=== PATIENT | male | born 1970 | race Caucasian/White ===

== ENCOUNTER 2019-01-17 05:52 | Observation (INO) | payer OTHER ==
[~2019-01-17] VITALS: Ht 177.8 cm; Wt 68.1 kg
[~2019-01-17 05:52] MED LIST: AZIT250 PO; BENZ100A PO; Bactrim Ds Tab1 EACH PO; CIPR500 PO; COMPAZINE10 MG PO; DIPH50 PO; FEXO60; FLUD.1; FLUD.1 PO; FLUT.05NI; Fludrocortison0.1 MG PO; GUAI600ER PO; HYDCOR10; HYDCOR10 PO; HYDGUAL120 PO; HYDR1TAB94 PO; LEVAQUIN; LEVFLO500 PO; LIVALO4 MG PO; LOPE2C PO; METO50 PO; METR500 PO; MUPI2TO TOP; Metoprolol Tar100 MG PO; OMEG1CAP30 PO; OMEP10ER PO; OMEP40CA12 PO; ONDA4ODT MM; OXYC5 PO; Omeprazole20 M1 PO; PROM25S PR; Prinivil10 MG PO; ROSU5 PO; RXHYD5325 PO; RXHYDGUAS PO; SUCR1 PO; TESTOSTERONE IM; TESTOSTERONE INJ; TESTTP TOP; Zithromax250 MG PO; Zofran Odt4 MG SL; [UNRECOGNIZED DRUG - OTHER]; [UNRECOGNIZED DRUG - OTHER]
[2019-01-17 06:44] LABS: BASOPHILS ABSOLUTE AUTO 0.03 K/mm3 (0.00-0.23); BASOPHILS PERCENT AUTO 0 % (0-2); EOSINOPHILS ABSOLUTE AUTO 0.14 K/mm3 (0.00-0.68); EOSINOPHILS PERCENT AUTO 2 % (0-6); Hemoglobin 19.3 g/dL (13.5-17.5); IMMATURE GRAN ABSOLUTE AUTO 0.03 K/mm3 (0.00-0.10); IMMATURE GRAN PERCENT AUTO 0 % (0-1); LYMPHOCYTES ABSOLUTE AUTO 0.91 K/mm3 (0.84-5.20); LYMPHOCYTES PERCENT AUTO 10 % (21-46); MONOCYTES ABSOLUTE AUTO 0.29 K/mm3 (0.16-1.47); MONOCYTES PERCENT AUTO 3 % (4-13); Mean Corpuscular HGB 31.1 pg (26.0-34.0); Mean Corpuscular HGB Conc 32.7 g/dL (31.5-36.5); Mean Corpuscular Volume 95 fL (80-100); Mean Platelet Volume 11.5 fL (9.1-12.4); NEUTROPHILS ABSOLUTE AUTO 7.79 K/mm3 (1.96-9.15); NEUTROPHILS PERCENT AUTO 85 % (41-73); Platelet Count 145 K/mm3 (150-400); RDW Coefficient Variation 13.1 % (11.7-14.2); RDW Standard Deviation 45.6 fL (35.1-46.3); Red Blood Cell Count 6.21 M/mm3 (4.30-5.90); White Blood Cell Count 9.19 K/mm3 (4.00-11.30)
[2019-01-17 07:07] LABS: Alanine Aminotransfer (ALT/SGP 158 U/L (12-78); Albumin, Blood 3.8 g/dL (3.4-5.0); Albumin/Globulin Ratio 0.9 (0.8-1.8); Alk Phos 67 U/L (50-136); Anion Gap 9 mmol/L (6-16); Aspartate Aminotrans (AST/SGOT 68 U/L (12-37); Bilirubin, Total 0.6 mg/dL (0.1-1.0); Blood Urea Nitrogen 24 mg/dL (8-24); Bun/Creatinine Ratio 64.5 (12.0-20.0); CO2, Blood 25 mmol/L (21-32); Calcium, Blood 8.7 mg/dL (8.5-10.1); Chloride, Blood 107 mmol/L (98-108); Creatinine, Blood 0.37 mg/dL (0.60-1.20); Globulin, Blood 4.4 g/dL (2.2-4.0); Glomerular Filtration Rate >60 (60-); Glucose, Blood 90 mg/dL (70-99); Potassium, Blood 4.1 mmol/L (3.5-5.5); Sodium, Blood 141 mmol/L (136-145); Total Protein, Blood 8.2 g/dL (6.4-8.2)
[2019-01-17 08:10] LABS: Source, Urine Voided
[2019-01-17 08:18] LABS: Bilirubin, Urine Neg (Neg); Blood, Urine 3+ (Neg); Glucose Qualitative, Urine Neg (Neg); Ketones, Urine Neg (Neg); Leukocyte Esterase, Urine Neg (Neg); Nitrite, Urine Neg (Neg); Protein, Urine 1+ (Neg); Urobilinogen, Urine NORM (Normal)
[2019-01-17 08:23] LABS: Color, Urine Yellow (P-Yellow)
[2019-01-17 08:24] LABS: Appearance, Urine Clear (Clear)
[2019-01-17 08:28] LABS: Bacteria Not Seen /hpf; Squamous Epithelial Cells Rare /hpf (Few); White Blood Cells, Urine 0-2 /hpf (0-5)
[2019-01-17] MEDS ORDERED: HYDR1TAB94 PO (15:39)
[2019-01-17 19:17] LABS: Influenza A Negative (NEGATIVE); Influenza B Negative (NEGATIVE)
--- NOTE | 2019-01-17 20:01 | NUR ---
SHIFT SUMMARY REYNA ARRIVED FROM ED AROUND 330 IN THE AFTERNOON. SOME NAUSEA, BUT NO VOMITTING. GOT TYLENOL FOR ABDOMINAL DISCOMFORT AND PT SLEPT WELL AFTER THIS. MIVF RUNNING, DAD AT BS. BED ALARM ON, PT INSTRUCTED TO CALL BEFORE GETTING OOB. JAMI
--- NOTE | 2019-01-18 01:20 | NUR ---
0120 PT APPEARS TO BE SLEEPING BREATHS EVEN NON LABORED
[2019-01-18 05:13] LABS: BASOPHILS ABSOLUTE AUTO 0.02 K/mm3 (0.00-0.23); BASOPHILS PERCENT AUTO 0 % (0-2); EOSINOPHILS ABSOLUTE AUTO 0.13 K/mm3 (0.00-0.68); EOSINOPHILS PERCENT AUTO 2 % (0-6); Hematocrit 48.7 % (37.0-53.0); Hemoglobin 15.7 g/dL (13.5-17.5); IMMATURE GRAN ABSOLUTE AUTO 0.03 K/mm3 (0.00-0.10); IMMATURE GRAN PERCENT AUTO 1 % (0-1); LYMPHOCYTES PERCENT AUTO 20 % (21-46); MONOCYTES ABSOLUTE AUTO 0.54 K/mm3 (0.16-1.47); MONOCYTES PERCENT AUTO 8 % (4-13); Mean Corpuscular HGB 30.8 pg (26.0-34.0); Mean Corpuscular HGB Conc 32.2 g/dL (31.5-36.5); Mean Corpuscular Volume 96 fL (80-100); Mean Platelet Volume 11.8 fL (9.1-12.4); NEUTROPHILS ABSOLUTE AUTO 4.48 K/mm3 (1.96-9.15); NEUTROPHILS PERCENT AUTO 69 % (41-73); Platelet Count 126 K/mm3 (150-400); RDW Coefficient Variation 13.2 % (11.7-14.2); RDW Standard Deviation 47.1 fL (35.1-46.3); Red Blood Cell Count 5.09 M/mm3 (4.30-5.90)
[2019-01-18 05:28] LABS: Anion Gap 5 mmol/L (6-16); Blood Urea Nitrogen 18 mg/dL (8-24); Bun/Creatinine Ratio 51.3 (12.0-20.0); CO2, Blood 26 mmol/L (21-32); Calcium, Blood 7.3 mg/dL (8.5-10.1); Chloride, Blood 109 mmol/L (98-108); Creatinine, Blood 0.35 mg/dL (0.60-1.20); Glomerular Filtration Rate >60 (60-); Glucose, Blood 59 mg/dL (70-99); Magnesium, Blood 1.8 mg/dL (1.6-2.4); Potassium, Blood 4.2 mmol/L (3.5-5.5); Sodium, Blood 140 mmol/L (136-145)
[2019-01-18] MEDS ORDERED: OMEPRAZOLE MAGN20 MG PO (18:08)
--- NOTE | 2019-01-18 19:48 | NUR ---
SHIFT SUMMARY- PT ON FULL LIQUID DIET. PT TOLERATED LUNCH WELL. PT WAS TO D/C THIS PM. NOTIFIED DR. PACK PT C/O STOMACH PAIN AND DIARRHEA THIS PM. NOTIFIED DR. PACK PT'S MOTHER CONCERNED ABOUT ENDING UP COMING BACK TO THE ED IF THEY D/C TONIGHT. DR. PACK SAID TO KEEP PT OVERNIGHT FOR OBSERVATION. PT DENIES N/V. TURNS Q2H. NO OTHER SIGNIFICANT CHANGES THIS SHIFT.
--- NOTE | 2019-01-19 05:06 | NUR ---
Shift summary. Pt given fentanyl for abdominal pain at hs with good relief. Pt states he has no abdominal pain this am. Pt incontinent of urine this am and changed out. Md called for the one time dose of fentanyl last pm because oral meds were not effective. Father also concernd about rapid decrease in cortef. The issue was addressed with md and WAs told that he would take care of it it am.
--- NOTE | 2019-01-19 10:17 | NUR ---
DISCHARGE PT STATE NO NAUSEA OR ABD PAIN THIS AM. ATE BF, TOLERATE WELL. DR PACK IN TO SEE HIM, STATE OK FOR D/C HOME TODAY, PLACE ORDER. PT MOTHER IN FOR TRANSPORTATION HOME, D/C INSTRUCT PROVIDED. NO NEW SCRIPTS. AUTOMOTIVE SERVICE MANAGER PROVIDE SHOWER. IV D/C INTACT. THEY STATE READY FOR D/C HOME, PLEASANT & APPRECIATIVE. AUTOMOTIVE SERVICE MANAGER PROVIDE W/C ESCORT FROM HOSP.
--- NOTE | 2019-01-19 11:50 | NUR ---
Pt is in bed resting and doing well , pt. may go home today encouraged pt. and prayed for him.
== END 2019-01-19 10:22 | disposition home or self-care (01) ==
LOC: ER 05:52 → ERHOLD 05:53 → MEDS 05:53 → ER 12:15 → MEDS 12:15 → ERHOLD 12:15 → MEDS 12:15 → ERHOLD 14:29 → MEDS 01-19 10:22
PROVIDERS: Emergency Medicine; ADMIT Family Medicine
DX: K52.9 Noninfective gastroenteritis and colitis, unspecified (principal); E87.0 Hyperosmolality and hypernatremia; E86.0 Dehydration; E27.1 Primary adrenocortical insufficiency; D75.1 Secondary polycythemia; I10 Essential (primary) hypertension; I48.0 Paroxysmal atrial fibrillation; E78.5 Hyperlipidemia, unspecified; K21.9 Gastro-esophageal reflux disease without esophagitis; Z88.0 Allergy status to penicillin; Z88.8 Allergy status to other drugs, medicaments and biological substances; Z79.899 Other long term (current) drug therapy; Z79.52 Long term (current) use of systemic steroids
CPT/HCPCS: 36415; 51701; 74177; 80048; 80053; 81001; 83690; 83735; 85025; 87804; 96361; 96361-59; 96374-59; 96375; 96375-59; 99285-25; A9270-GY; C9113; G0378; J1650; J1720; J2405; J3010; J3480; J7120; Q9967

== ENCOUNTER 2020-01-02 23:03 | Observation (INO) | payer OTHER ==
[~2020-01-02] VITALS: Ht 177.8 cm; Wt 63.5 kg
[~2020-01-02 23:03] MED LIST changes: -OMEG1CAP30 PO; +OMEPRAZOLE MAGN20 MG PO; +Omega-31000 MG PO
[2020-01-02 23:49] LABS: BASOPHILS ABSOLUTE AUTO 0.05 K/mm3 (0.00-0.23); BASOPHILS PERCENT AUTO 1 % (0-2); EOSINOPHILS ABSOLUTE AUTO 0.22 K/mm3 (0.00-0.68); EOSINOPHILS PERCENT AUTO 3 % (0-6); Hematocrit 54.1 % (37.0-53.0); Hemoglobin 18.3 g/dL (13.5-17.5); IMMATURE GRAN ABSOLUTE AUTO 0.03 K/mm3 (0.00-0.10); IMMATURE GRAN PERCENT AUTO 0 % (0-1); LYMPHOCYTES ABSOLUTE AUTO 2.27 K/mm3 (0.84-5.20); LYMPHOCYTES PERCENT AUTO 31 % (21-46); MONOCYTES ABSOLUTE AUTO 0.78 K/mm3 (0.16-1.47); MONOCYTES PERCENT AUTO 11 % (4-13); Mean Corpuscular HGB 31.3 pg (26.0-34.0); Mean Corpuscular HGB Conc 33.8 g/dL (31.5-36.5); Mean Corpuscular Volume 93 fL (80-100); Mean Platelet Volume 11.2 fL (9.1-12.4); NEUTROPHILS ABSOLUTE AUTO 4.06 K/mm3 (1.96-9.15); NEUTROPHILS PERCENT AUTO 55 % (41-73); Platelet Count 179 K/mm3 (150-400); RDW Coefficient Variation 12.6 % (11.7-14.2); RDW Standard Deviation 43.1 fL (35.1-46.3); Red Blood Cell Count 5.85 M/mm3 (4.30-5.90); White Blood Cell Count 7.41 K/mm3 (4.00-11.30)
[2020-01-03 00:10] LABS: Alanine Aminotransfer (ALT/SGP 157 U/L (12-78); Alk Phos 66 U/L (50-136); Anion Gap 5 mmol/L (6-16); Aspartate Aminotrans (AST/SGOT 56 U/L (12-37); Bilirubin, Total 0.3 mg/dL (0.1-1.0); Blood Urea Nitrogen 17 mg/dL (8-24); CO2, Blood 29 mmol/L (21-32); Chloride, Blood 104 mmol/L (98-108); Creatinine, Blood 0.66 mg/dL (0.60-1.20); Globulin, Blood 4.2 g/dL (2.2-4.0); Glomerular Filtration Rate >60 (60-); Glucose, Blood 149 mg/dL (70-99); Potassium, Blood 3.7 mmol/L (3.5-5.5); Sodium, Blood 138 mmol/L (136-145); Total Protein, Blood 8.2 g/dL (6.4-8.2); Troponin I 0.145 ng/mL (0.000-0.040)
[2020-01-03 00:37] LABS: Influenza A Negative (NEGATIVE); Influenza B Negative (NEGATIVE)
[2020-01-03 03:38] LABS: Adenovirus Not Detected (NOT DETECT); Bordetella pertussis Not Detected (NOT DETECT); Chlamydophila pneumoniae Not Detected (NOT DETECT); Coronavirus 229E Not Detected (NOT DETECT); Coronavirus HKU1 Not Detected (NOT DETECT); Coronavirus NL63 Not Detected (NOT DETECT); Coronavirus OC43 Not Detected (NOT DETECT); Human Metapneumovirus Detected (NOT DETECT); Human Rhinovirus/Enterovirus Not Detected (NOT DETECT); Influenza A Not Detected (NOT DETECT); Influenza A/2009-H1 Not Detected (NOT DETECT); Influenza A/H1 Not Detected (NOT DETECT); Influenza A/H3 Not Detected (NOT DETECT); Influenza B Not Detected (NOT DETECT); Mycoplasma pneumoniae Not Detected (NOT DETECT); Parainfluenza Virus 1 Not Detected (NOT DETECT); Parainfluenza Virus 2 Not Detected (NOT DETECT); Parainfluenza Virus 3 Not Detected (NOT DETECT); Parainfluenza Virus 4 Not Detected (NOT DETECT); Respiratory Syncytial Virus Not Detected (NOT DETECT)
[2020-01-03 04:07] LABS: International Normalized Ratio 0.97; Prothrombin Time Results 10.4 Sec (9.7-11.5)
[2020-01-03 06:40] LABS: Alanine Aminotransfer (ALT/SGP 133 U/L (12-78); Albumin, Blood 3.3 g/dL (3.4-5.0); Alk Phos 51 U/L (50-136); Anion Gap 7 mmol/L (6-16); Aspartate Aminotrans (AST/SGOT 73 U/L (12-37); Bilirubin, Total 0.3 mg/dL (0.1-1.0); Blood Urea Nitrogen 16 mg/dL (8-24); Bun/Creatinine Ratio 37.2 (12.0-20.0); CO2, Blood 25 mmol/L (21-32); Calcium, Blood 8.3 mg/dL (8.5-10.1); Chloride, Blood 108 mmol/L (98-108); Creatinine, Blood 0.43 mg/dL (0.60-1.20); Globulin, Blood 3.4 g/dL (2.2-4.0); Glomerular Filtration Rate >60 (60-); Glucose, Blood 98 mg/dL (70-99); Potassium, Blood 3.4 mmol/L (3.5-5.5); Sodium, Blood 140 mmol/L (136-145); Total Protein, Blood 6.7 g/dL (6.4-8.2)
[2020-01-03 07:13] LABS: BASOPHILS ABSOLUTE AUTO 0.04 K/mm3 (0.00-0.23); BASOPHILS PERCENT AUTO 0 % (0-2); EOSINOPHILS ABSOLUTE AUTO 0.14 K/mm3 (0.00-0.68); EOSINOPHILS PERCENT AUTO 1 % (0-6); Hematocrit 51.9 % (37.0-53.0); Hemoglobin 17.6 g/dL (13.5-17.5); IMMATURE GRAN ABSOLUTE AUTO 0.04 K/mm3 (0.00-0.10); IMMATURE GRAN PERCENT AUTO 0 % (0-1); LYMPHOCYTES ABSOLUTE AUTO 2.13 K/mm3 (0.84-5.20); LYMPHOCYTES PERCENT AUTO 20 % (21-46); MONOCYTES PERCENT AUTO 9 % (4-13); Mean Corpuscular HGB Conc 33.9 g/dL (31.5-36.5); Mean Corpuscular Volume 92 fL (80-100); Mean Platelet Volume 11.2 fL (9.1-12.4); NEUTROPHILS ABSOLUTE AUTO 7.48 K/mm3 (1.96-9.15); NEUTROPHILS PERCENT AUTO 69 % (41-73); Platelet Count 179 K/mm3 (150-400); RDW Coefficient Variation 12.6 % (11.7-14.2); RDW Standard Deviation 42.5 fL (35.1-46.3); Red Blood Cell Count 5.67 M/mm3 (4.30-5.90); White Blood Cell Count 10.83 K/mm3 (4.00-11.30)
--- NOTE | 2020-01-03 14:32 | NUR ---
PT ADMITTED PT ADMITTED. CRITICAL TROP CALLED TO DR. PACK ON ADMIT. NO ORDERS. CARDIAC CONSULT CALLED. PT ORIENTED TO ROOM. CALL LIGHT IN REACH.
--- NOTE | 2020-01-03 15:00 | NUR ---
Echocardiogram completed.
--- NOTE | 2020-01-03 15:38 | NUR ---
CODE STATUS PT PARENTS REQUESTED THAT PT BE A DNR. DR. PACK NOTIFIED. NEW ORDER PLACED.
--- NOTE | 2020-01-03 17:11 | NUR ---
SHIFT SUMMARY PT SLEEPING CURRENTLY IN BED. CALL LIGHT IN REACH. NO CHANGES IN ASSESSMENT SINCE ADMISSION. DR. PACK AWARE OF TROPONINS. LOCKSTITCH FRONT MAKER IN TO SEE PT THIS SHIFT. VSS. WILL CONTINUE TO MONITOR UNTIL TURNOVER IS COMPLETE.
--- NOTE | 2020-01-04 03:31 | NUR ---
SHIFT SUMMARY ASSUMED CARE OF PT AT 1900. PT WAS SLEEPING DURING SHIFT CHANGE. PT IS ALERT AND OIENTED TO SELF AND FAMILY, PT CAN ONLY ANSWER YES AND NO QUESTIONS. LUNG SOUINDS CLEAR, HEART SOUNDSREGULAR, TELE SHOWS SINUS AT 95. PT BP MEDICATION HELP DUE TO LOW BP, TROPONINS CAME BACK AND SHOWED A DECREASE, CHARGE NURSE NOTIFIED, CHARGE NURSE STATED NOT TO CALL DOCTOR DUE TO DECREASING LEVELS. PT HAS SLEPT MOST OF THE NIGHT EXCEPT TO RECEIVE A SNACK. CALL LIGHT IN REACH, BED IN LOWEST POSTION, WILL CONTINUE TO MONITOR UNTIL DAYSHIFT NURSE ARRIVES.
[2020-01-04 05:20] LABS: Alanine Aminotransfer (ALT/SGP 124 U/L (12-78); Albumin, Blood 2.9 g/dL (3.4-5.0); Albumin/Globulin Ratio 0.9 (0.8-1.8); Alk Phos 46 U/L (50-136); Anion Gap 9 mmol/L (6-16); Aspartate Aminotrans (AST/SGOT 71 U/L (12-37); Bilirubin, Total 0.6 mg/dL (0.1-1.0); Blood Urea Nitrogen 15 mg/dL (8-24); Bun/Creatinine Ratio 37.6 (12.0-20.0); CO2, Blood 20 mmol/L (21-32); Calcium, Blood 7.8 mg/dL (8.5-10.1); Chloride, Blood 109 mmol/L (98-108); Globulin, Blood 3.3 g/dL (2.2-4.0); Glomerular Filtration Rate >60 (60-); Glucose, Blood 58 mg/dL (70-99); Sodium, Blood 138 mmol/L (136-145); Total Protein, Blood 6.2 g/dL (6.4-8.2); Troponin I 0.261 ng/mL (0.000-0.040)
[2020-01-04 05:33] LABS: BASOPHILS ABSOLUTE AUTO 0.04 K/mm3 (0.00-0.23); BASOPHILS PERCENT AUTO 1 % (0-2); EOSINOPHILS ABSOLUTE AUTO 0.05 K/mm3 (0.00-0.68); EOSINOPHILS PERCENT AUTO 1 % (0-6); Hematocrit 46.6 % (37.0-53.0); Hemoglobin 15.7 g/dL (13.5-17.5); IMMATURE GRAN ABSOLUTE AUTO 0.05 K/mm3 (0.00-0.10); IMMATURE GRAN PERCENT AUTO 1 % (0-1); LYMPHOCYTES ABSOLUTE AUTO 2.15 K/mm3 (0.84-5.20); LYMPHOCYTES PERCENT AUTO 29 % (21-46); MONOCYTES ABSOLUTE AUTO 0.57 K/mm3 (0.16-1.47); MONOCYTES PERCENT AUTO 8 % (4-13); Mean Corpuscular HGB 31.2 pg (26.0-34.0); Mean Corpuscular HGB Conc 33.7 g/dL (31.5-36.5); Mean Corpuscular Volume 93 fL (80-100); NEUTROPHILS ABSOLUTE AUTO 4.54 K/mm3 (1.96-9.15); NEUTROPHILS PERCENT AUTO 61 % (41-73); RDW Coefficient Variation 12.8 % (11.7-14.2); RDW Standard Deviation 43.6 fL (35.1-46.3); Red Blood Cell Count 5.03 M/mm3 (4.30-5.90)
[2020-01-04 05:36] LABS: Mean Platelet Volume 11.8 fL (9.1-12.4); Platelet Count 171 K/mm3 (150-400)
[2020-01-04] MEDS ORDERED: ASPIR 8181 M1 PO (11:20)
[2020-01-04] MEDS ORDERED: ATOR20 PO (11:21)
[2020-01-04] MEDS ORDERED: DOCU100 PO (11:21)
[2020-01-04] MEDS ORDERED: GUAI600T33 PO (11:22)
[2020-01-04] MEDS ORDERED: ALBU90OI INH (11:23)
[2020-01-04] MEDS ORDERED: Acetaminophen650 M1 PO (11:23)
[2020-01-04] MEDS ORDERED: OMEP20ER PO (11:23)
--- NOTE | 2020-01-04 11:29 | NUR ---
VTACH BEATS PT HAS 6 BEATS OF V-TACH PER JAVA CORE DEVELOPER. PT NOW RUNNING SINUS TACH AT 112. DR. PACK NOTIFIED. STATES THIS IS DUE TO HIS CARDIOMYOPATHY. NO NEW ORDERS. WILL CONTINUE WITH DC SINCE PT IS NOT SUSTAINING ANY RATE ABOVE 150. WILL CONTINUE TO MONITOR UNTIL PT IS DC'ED.
--- NOTE | 2020-01-04 12:24 | NUR ---
PT DISCHARGED. PT DISCHARGED AT 1205. DC INSTRUCTIONS GIVEN TO PT FATHER. NO FURTHER QUESTIONS AT THIS TIME. PT WHEELED OUT BY ESCORT AND DRIVEN HOME BY FATHER.
== END 2020-01-04 12:10 | disposition home or self-care (01) ==
LOC: ER 23:03 → ERHOLD 23:04 → MEDS 23:04 → ENPENDDIS 01-04 11:00 → MEDS 01-04 12:10
PROVIDERS: Emergency Medicine; Family Medicine; Physician Assistant; ADMIT Internal Medicine
DX: I21.4 Non-ST elevation (NSTEMI) myocardial infarction (principal); J20.8 Acute bronchitis due to other specified organisms; G71.01 Duchenne or Becker muscular dystrophy; I42.9 Cardiomyopathy, unspecified; E27.40 Unspecified adrenocortical insufficiency; I48.0 Paroxysmal atrial fibrillation; I10 Essential (primary) hypertension; E78.5 Hyperlipidemia, unspecified; K21.9 Gastro-esophageal reflux disease without esophagitis
CPT/HCPCS: 0099U; 36415; 71046; 71250; 80053; 82947; 83605; 84484; 85025; 85610; 85730; 87804; 93005; 93010; 93306; 96361; 96365; 96367; 96375; 99285-25; A9270; A9270-GY; J0696; J1644; J1650; J1720; J3480; J7030

== ENCOUNTER 2022-05-18 | Emergency (ER) | payer OTHER ==
[~2022-05-18] VITALS: Ht 180.3 cm; Wt 70.3 kg
[~2022-05-18] MED LIST changes: +ALBU90OI INH; +ASPIR 8181 M1 PO; +ATOR20 PO; +Acetaminophen650 M1 PO; +DOCU100 PO; +GUAI600T33 PO; +OMEP20ER PO
[2022-05-18 00:50] LABS: BASOPHILS ABSOLUTE AUTO 0.04 K/mm3 (0.00-0.23); BASOPHILS PERCENT AUTO 1 % (0-2); EOSINOPHILS ABSOLUTE AUTO 0.23 K/mm3 (0.00-0.68); EOSINOPHILS PERCENT AUTO 3 % (0-6); Hematocrit 54.6 % (37.0-53.0); Hemoglobin 18.8 g/dL (13.5-17.5); IMMATURE GRAN ABSOLUTE AUTO 0.03 K/mm3 (0.00-0.10); IMMATURE GRAN PERCENT AUTO 0 % (0-1); LYMPHOCYTES ABSOLUTE AUTO 2.01 K/mm3 (0.84-5.20); LYMPHOCYTES PERCENT AUTO 24 % (21-46); MONOCYTES ABSOLUTE AUTO 0.66 K/mm3 (0.16-1.47); MONOCYTES PERCENT AUTO 8 % (4-13); Mean Corpuscular HGB 30.8 pg (26.0-34.0); Mean Corpuscular HGB Conc 34.4 g/dL (31.5-36.5); Mean Corpuscular Volume 90 fL (80-100); Mean Platelet Volume 10.8 fL (9.1-12.4); NEUTROPHILS ABSOLUTE AUTO 5.59 K/mm3 (1.96-9.15); NEUTROPHILS PERCENT AUTO 65 % (41-73); Platelet Count 171 K/mm3 (150-400); RDW Coefficient Variation 12.6 % (11.7-14.2); RDW Standard Deviation 41.6 fL (35.1-46.3); White Blood Cell Count 8.56 K/mm3 (4.00-11.30)
[2022-05-18 01:08] LABS: Albumin, Blood 3.7 g/dL (3.4-5.0); Albumin/Globulin Ratio 0.9 (0.8-1.8); Bilirubin, Total 0.8 mg/dL (0.1-1.0); Bun/Creatinine Ratio 45.7 (12.0-20.0); Creatinine, Blood 0.37 mg/dL (0.60-1.20); Globulin, Blood 4.1 g/dL (2.2-4.0); Potassium, Blood 3.9 mmol/L (3.5-5.5); Total Protein, Blood 7.8 g/dL (6.4-8.2)
== END 2022-05-18 02:25 | disposition home or self-care (01) ==
LOC: ER
PROVIDERS: Emergency Medicine
DX: R11.2 Nausea with vomiting, unspecified (principal); R10.9 Unspecified abdominal pain; E27.1 Primary adrenocortical insufficiency; G71.01 Duchenne or Becker muscular dystrophy; E78.5 Hyperlipidemia, unspecified; K21.9 Gastro-esophageal reflux disease without esophagitis; Z88.0 Allergy status to penicillin; Z88.1 Allergy status to other antibiotic agents
CPT/HCPCS: 36415; 80053; 85025; A9270; J2405; J2930; J7030

== ENCOUNTER 2023-01-16 00:37 | Inpatient (IN) | payer OTHER ==
[~2023-01-16] VITALS: Ht 180.3 cm; Wt 72.5 kg
[2023-01-16 01:19] LABS: BASOPHILS ABSOLUTE AUTO 0.09 K/mm3 (0.00-0.23); BASOPHILS PERCENT AUTO 1 % (0-2); EOSINOPHILS ABSOLUTE AUTO 0.38 K/mm3 (0.00-0.68); EOSINOPHILS PERCENT AUTO 4 % (0-6); Hematocrit 52.7 % (37.0-53.0); IMMATURE GRAN ABSOLUTE AUTO 0.05 K/mm3 (0.00-0.10); IMMATURE GRAN PERCENT AUTO 1 % (0-1); LYMPHOCYTES ABSOLUTE AUTO 1.66 K/mm3 (0.84-5.20); LYMPHOCYTES PERCENT AUTO 15 % (21-46); MONOCYTES ABSOLUTE AUTO 1.06 K/mm3 (0.16-1.47); MONOCYTES PERCENT AUTO 10 % (4-13); Mean Corpuscular HGB 30.9 pg (26.0-34.0); Mean Corpuscular HGB Conc 34.2 g/dL (31.5-36.5); Mean Corpuscular Volume 91 fL (80-100); NEUTROPHILS ABSOLUTE AUTO 7.52 K/mm3 (1.96-9.15); NEUTROPHILS PERCENT AUTO 70 % (41-73); Platelet Count 177 K/mm3 (150-400); RDW Coefficient Variation 13.6 % (11.7-14.2); RDW Standard Deviation 44.5 fL (35.1-46.3); Red Blood Cell Count 5.82 M/mm3 (4.30-5.90); White Blood Cell Count 10.76 K/mm3 (4.00-11.30)
[2023-01-16 01:36] LABS: Albumin, Blood 3.4 g/dL (3.4-5.0); Albumin/Globulin Ratio 0.8 (0.8-1.8); Bilirubin, Total 0.3 mg/dL (0.1-1.0); Bun/Creatinine Ratio 55.4 (12.0-20.0); Calcium, Blood 8.4 mg/dL (8.5-10.1); Creatinine, Blood 0.29 mg/dL (0.60-1.20); Globulin, Blood 4.3 g/dL (2.2-4.0); Potassium, Blood 3.6 mmol/L (3.5-5.5); Total Protein, Blood 7.7 g/dL (6.4-8.2)
[2023-01-16 02:06] LABS: Influenza A, PCR NEGATIVE (NEGATIVE); Influenza B, PCR NEGATIVE (NEGATIVE); Resp Syncytial Virus, PCR NEGATIVE (NEGATIVE); SARS-Cov-2 (COVID-19) PCR, MMC NEGATIVE (NEGATIVE)
[2023-01-16 02:18] LABS: Source, Urine Voided
[2023-01-16 02:21] LABS: Bilirubin, Urine Neg (Neg); Blood, Urine 5+ (Neg); Glucose Qualitative, Urine 3+ (Neg); Ketones, Urine Neg (Neg); Leukocyte Esterase, Urine Neg (Neg); Nitrite, Urine Neg (Neg); Protein, Urine 3+ (Neg); Urobilinogen, Urine NORM (Normal)
[2023-01-16 02:27] LABS: Appearance, Urine Clear (Clear); Color, Urine Yellow (P-Yellow)
[2023-01-16 02:30] LABS: Bacteria Not Seen /hpf; Mucus Light (0-Heavy); Squamous Epithelial Cells Not Seen /hpf (Few); White Blood Cells, Urine 0-2 /hpf (0-5)
--- NOTE | 2023-01-16 04:30 | NUR ---
ASSESSMENT: PT VERY PLEASANT AND COOP WITH CARE. DENIES ANY PAIN. HX OBTAINED FROM DAD; SANCHEZ. LS DIMINISHED T/O WITH BIOX 95% ON RA. HEART SOUNDS REGULAR WITH MONITOR SHOWING HR 87. SKIN PINK, WARM AND DRY WITH PPP BILAT. 20G IV LAC WITH NS RUNNING AT TKO. ABD R/S WITH BT X 4. VOIDS PER URINAL WITH ASSISTANCE
[2023-01-16 04:47] LABS: BASOPHILS ABSOLUTE AUTO 0.04 K/mm3 (0.00-0.23); BASOPHILS PERCENT AUTO 0 % (0-2); EOSINOPHILS ABSOLUTE AUTO 0.12 K/mm3 (0.00-0.68); EOSINOPHILS PERCENT AUTO 1 % (0-6); Hemoglobin 18.6 g/dL (13.5-17.5); IMMATURE GRAN ABSOLUTE AUTO 0.08 K/mm3 (0.00-0.10); IMMATURE GRAN PERCENT AUTO 1 % (0-1); LYMPHOCYTES ABSOLUTE AUTO 1.19 K/mm3 (0.84-5.20); LYMPHOCYTES PERCENT AUTO 13 % (21-46); MONOCYTES ABSOLUTE AUTO 0.35 K/mm3 (0.16-1.47); MONOCYTES PERCENT AUTO 4 % (4-13); Mean Corpuscular HGB 30.3 pg (26.0-34.0); Mean Corpuscular HGB Conc 33.7 g/dL (31.5-36.5); Mean Corpuscular Volume 90 fL (80-100); Mean Platelet Volume 11.1 fL (9.1-12.4); NEUTROPHILS ABSOLUTE AUTO 7.64 K/mm3 (1.96-9.15); NEUTROPHILS PERCENT AUTO 81 % (41-73); Platelet Count 179 K/mm3 (150-400); RDW Coefficient Variation 13.4 % (11.7-14.2); RDW Standard Deviation 44.1 fL (35.1-46.3); Red Blood Cell Count 6.13 M/mm3 (4.30-5.90); White Blood Cell Count 9.42 K/mm3 (4.00-11.30)
[2023-01-16 05:04] LABS: Bun/Creatinine Ratio 38.3 (12.0-20.0); Calcium, Blood 8.2 mg/dL (8.5-10.1); Creatinine, Blood 0.37 mg/dL (0.60-1.20); Potassium, Blood 3.9 mmol/L (3.5-5.5)
[2023-01-16 05:07] LABS: Hematocrit 55.2 % (37.0-53.0)
--- NOTE | 2023-01-16 08:28 | NUR ---
ASSUMED CARE REPORT FROM TIKI BALBUENA AT 0700. PT RESTING IN BED. ALERT. ORIENTED TO SELF AND PLACE. ANSWERS QUESTIONS c YES/NO/ONE WORD ANSWERS. ABLE TO MAKE NEEDS KNOWN. LUNGS DIM THROUGHOUT. NO COUGH NOTED, RA, O2 SATS >94%. ASSISTED c MEALS AND PO INTAKE. PIV X 1. WILL CONTINUE TO MONITOR.
--- NOTE | 2023-01-16 10:56 | NUR ---
"Spiritual Care | Nurse Referral Pt. is awake in bed and is very pleasant. As noted in other notes, Pt. responds in one word sentences and displays evidence of limited mentation. Pt. does not verbalize any concerns. Identify subjects of interest, and Pt. responds with a joyous expression. Pt. verbalized gratitude for the spiritual care visit."
--- NOTE | 2023-01-16 17:20 | NUR ---
SHIFT SUMMARY NO ACUTE CHANGES THIS SHIFT. PT REMAINS ON RA, O2 SATS >94%. LUNGS DIM. NO COUGH NOTED. VSS. NEURO UNCHANGED. SPEAKS IN ONE-TWO WORD RESPONSES. DENIES NEEDS. ABLE TO MAKE NEEDS KNOWN. POOR APPETITE FOR LUNCH, RESTARTED PRILOSEC p C/O EPIGASTRIC PAIN. DISCUSSED STEROID ORDER c LEXI PER FATHER, INCREASED DOSE TO 20 MG TID. WILL CONTINUE TO MONITOR UNTIL REPORT TO ONCOMING NURSE.
--- NOTE | 2023-01-16 19:00 | NUR ---
ASSUMED CARE OF PT AT 1900 PT RESTING IN BED WITH NO COMPLAINTS AT THIS TIME. A/O AT BASLINE ACCORDING TO FAMILY. BASELINE LOW MENTAL CAPACITY. PT WAS ABLE TO ANSWER YES AND NO QUESTIONS. ABLE TO MAKE NEEDS KNOWN. DOES NOT USE CALL LIGHT. NORMAL ROUNDING NEEDED FOR PT NEEDS. VITALS WNL. SPO2 >93% ON RA. BED IN LOW POSITION, CALL LIGHT WITHIN REACH. PT IS WITHIN THIS RN SIGHT. SEE FULL ASSESSMENT FOR FURHTER INFORMATION.
[2023-01-17 03:40] LABS: BASOPHILS ABSOLUTE AUTO 0.08 K/mm3 (0.00-0.23); BASOPHILS PERCENT AUTO 1 % (0-2); EOSINOPHILS ABSOLUTE AUTO 0.17 K/mm3 (0.00-0.68); EOSINOPHILS PERCENT AUTO 2 % (0-6); Hematocrit 50.6 % (37.0-53.0); Hemoglobin 17.1 g/dL (13.5-17.5); IMMATURE GRAN ABSOLUTE AUTO 0.06 K/mm3 (0.00-0.10); IMMATURE GRAN PERCENT AUTO 1 % (0-1); LYMPHOCYTES ABSOLUTE AUTO 1.74 K/mm3 (0.84-5.20); LYMPHOCYTES PERCENT AUTO 15 % (21-46); MONOCYTES ABSOLUTE AUTO 1.24 K/mm3 (0.16-1.47); MONOCYTES PERCENT AUTO 11 % (4-13); Mean Corpuscular HGB 30.3 pg (26.0-34.0); Mean Corpuscular HGB Conc 33.8 g/dL (31.5-36.5); Mean Corpuscular Volume 90 fL (80-100); Mean Platelet Volume 11.2 fL (9.1-12.4); NEUTROPHILS ABSOLUTE AUTO 8.16 K/mm3 (1.96-9.15); NEUTROPHILS PERCENT AUTO 71 % (41-73); Platelet Count 174 K/mm3 (150-400); RDW Coefficient Variation 13.5 % (11.7-14.2); RDW Standard Deviation 44.1 fL (35.1-46.3); Red Blood Cell Count 5.65 M/mm3 (4.30-5.90); White Blood Cell Count 11.45 K/mm3 (4.00-11.30)
[2023-01-17 04:02] LABS: Albumin, Blood 3.2 g/dL (3.4-5.0); Albumin/Globulin Ratio 0.8 (0.8-1.8); Bilirubin, Total 0.9 mg/dL (0.1-1.0); Bun/Creatinine Ratio 36.9 (12.0-20.0); Calcium, Blood 8.6 mg/dL (8.5-10.1); Creatinine, Blood 0.35 mg/dL (0.60-1.20); Globulin, Blood 3.8 g/dL (2.2-4.0)
--- NOTE | 2023-01-17 05:17 | NUR ---
END OF SHIFT SUMMARY PT WAS RESTLESS MOST OF THE NIGHT WITH FREQUENT REQUEST TO URINATE WITH VERY LITTLE URINE PRODUCED. CONDOM CATHETER INITIATED DUE TO THE AMOUNT OF REQUESTS TO URINATE. CALL LIGHT USED APPROPRIATELY THROUGHOUT THIS SHIFT. PT IS ABLE TO MAKE NEEDS KNOWN. COMMUNICATION IS KEPT SIMPLE WITH SMALL QUESTIONS OR DIRECTIONS. VITALS WNL FOR PATIENT BASELINE. WILL CONTINUE TO MONITOR PT UNTIL DAYSHIFT RN IS GIVEN REPORT.
--- NOTE | 2023-01-17 07:07 | NUR ---
ASSUMPTION OF CARE PT RESTING IN BED. HE IS ALERT TO SELF AND PLACE. C/O EPIGASTRIC DISCOMFORT, DENIES NAUSEA. TKO INFUSING. CONDOM CATH IN PLACE DRAINING YELLOW URINE. PT AFEBRILE, VSS. BED IN LOW POSITION AND CALL LIGHT WITHIN REACH.
--- NOTE | 2023-01-17 10:50 | NUR ---
UPDATE PT CONTINUES TO HAVE EPIGASTRIC PAIN. HOSPITALIST NOTIFIED AND RECEIVED ORDER FOR GI COCKTAIL. PT ANXIOUS AND RESTLESS. PT'S FATHER NOW AT BEDSIDE, PT MORE CALM. PT'S FATHER EXPRESSES CONCERN ABOUT POSSIBLE DISCHARGE TODAY AND WOULD LIKE PT TO STAY ONE MORE NIGHT. VSS, CALL LIGHT WITHIN REACH.
--- NOTE | 2023-01-17 17:24 | NUR ---
SHIFT SUMMARY PT MORE ALERT THROUGHOUT SHIFT. HE USES HIS CALL LIGHT AND IS ABLE TO VOCALIZE NEEDS. HE IS RECEIVING NS TKO. GI UPSET HAS RESOLVED AND PT IS NO LONGER HAVING EPIGASTRIC DISCOMFORT. HE ATE MOST OF LUNCH AND DINNER WITH ASSISTANCE. HE USES THE URINAL TO VOID. VSS THROUGHOUT SHIFT. BED IN LOW POSITION AND CALL LIGHT WITHIN REACH.
--- NOTE | 2023-01-17 21:00 | NUR ---
ASSUMED CARE OF PT AT 1900 PT AWAKE IN BED WITH NO VISITORS AT THIS TIME. VITALS WNL AT THIS TIME. BED IN LOW POSTION WITH 3 RAILS UP. PT IS UNABLE TO GET OUT OF BED ON HIS OWN. 10 MLS/HR TKO RUNNING. SEE FULL ASSESSMENT FOR FURTHER DETAILS.
--- NOTE | 2023-01-17 22:02 | NUR ---
FREQUENT REQUESTS FOR A SIP OF WATER BUT THEN DOES NOT WANT IT. CALL LIGHT USED ONCE EVERY COUPLE OF MINUTES. DR VENEGAS NOTIFIED THAT PATIENT HAS NOT SLEPT PREVIOUS NIGHT OR DAY SHIFTS.
[2023-01-18 03:40] LABS: BASOPHILS ABSOLUTE AUTO 0.05 K/mm3 (0.00-0.23); BASOPHILS PERCENT AUTO 1 % (0-2); EOSINOPHILS ABSOLUTE AUTO 0.29 K/mm3 (0.00-0.68); EOSINOPHILS PERCENT AUTO 4 % (0-6); Hemoglobin 17.1 g/dL (13.5-17.5); IMMATURE GRAN ABSOLUTE AUTO 0.04 K/mm3 (0.00-0.10); IMMATURE GRAN PERCENT AUTO 1 % (0-1); LYMPHOCYTES ABSOLUTE AUTO 2.16 K/mm3 (0.84-5.20); LYMPHOCYTES PERCENT AUTO 29 % (21-46); MONOCYTES ABSOLUTE AUTO 0.75 K/mm3 (0.16-1.47); MONOCYTES PERCENT AUTO 10 % (4-13); Mean Corpuscular HGB 30.7 pg (26.0-34.0); Mean Corpuscular HGB Conc 34.2 g/dL (31.5-36.5); Mean Corpuscular Volume 90 fL (80-100); NEUTROPHILS ABSOLUTE AUTO 4.23 K/mm3 (1.96-9.15); NEUTROPHILS PERCENT AUTO 56 % (41-73); Platelet Count 153 K/mm3 (150-400); RDW Coefficient Variation 13.7 % (11.7-14.2); RDW Standard Deviation 44.2 fL (35.1-46.3); Red Blood Cell Count 5.57 M/mm3 (4.30-5.90); White Blood Cell Count 7.52 K/mm3 (4.00-11.30)
[2023-01-18 03:58] LABS: Albumin/Globulin Ratio 0.8 (0.8-1.8); Bilirubin, Total 0.7 mg/dL (0.1-1.0); Bun/Creatinine Ratio 37.5 (12.0-20.0); Creatinine, Blood 0.32 mg/dL (0.60-1.20); Potassium, Blood 2.9 mmol/L (3.5-5.5)
--- NOTE | 2023-01-18 05:00 | NUR ---
REPORT GIVEN TO JANET BALBUENA FOR TRANSFER TO 343
--- NOTE | 2023-01-18 06:47 | NUR ---
PT ARRIVED TO FLOOR AT 0530; OF 629 PT HAS USED CALL LIGHT TEN TIMES TO REQUEST PAIN MEDS, REQUEST A DRINK OF WATER AND REQUEST TO USE URINAL WITHOUT ACTUALLY VOIDING. BLADDER SCAN YIELDED 25mL. PT C/O NAUSEA WITH SOME EMESIS AFTER LAYING DOWN AFTER TAKING PILLS IN APPLESAUCE. RECOMMENDED SITTING UP AFTER EATING BUT HE DECLINES. ANTICIPATE DC HOME TODAY. SECOND RN SKIN ASSESSMENT WITH ZENIA AVITIA RN. REPORT TO ONCOMING RN.
[2023-01-18] MEDS ORDERED: OMEP20ER PO (15:17)
[2023-01-18] MEDS ORDERED: DEPO-TESTO200 MG/1 M IM (15:18)
[2023-01-18 15:20] LABS: Bun/Creatinine Ratio 27.1 (12.0-20.0); Calcium, Blood 8.4 mg/dL (8.5-10.1); Creatinine, Blood 0.33 mg/dL (0.60-1.20); Magnesium, Blood 1.6 mg/dL (1.6-2.4); Potassium, Blood 2.8 mmol/L (3.5-5.5)
--- NOTE | 2023-01-18 17:58 | NUR ---
SHIFT SUMMARY PT A&OX3 MOOD UP AND DOWN T/O SHIFT. DAD IN TO SEE PT 2X T/O SHIFT FOR APPROX 30 MINS EACH. PT APPEARS VERY ANXIOUS WHEN FATHER NOT AT BEDSIDE. ASKING "AM I GOING HOME" "IS MY DAD COMING BACK" "I CAN NOT SLEEP" CONTINOUS CALL LIGHT BEING PRESSED T/O SHIFT. PT EATING MIN AMOUNT, STAFF OFFERED TO ASSIST W/ FEEDING PT-DAD STATES PT EATS IND. @ [facility]. PROBABLE DC TOMORROW, K+ BEING REPLACED THIS EVENING TACHICARDIA REPORTED TO DR. VITALE/INCONT. ABLE TO GET TO BSC 1-2X. CALL LIGHT W/IN REACH. BED IN LOW POSITION/BED ALARM ON.
--- NOTE | 2023-01-19 04:29 | NUR ---
CHIDI SPENT THE ENTIRE NIGHT AWAKE CALLING OUT AND PLAYING WITH THE BUTTONS ON HIS CALL LIGHT. EACH TIME STAFF WOULD ENTER HIS ROOM, REYNA WOULD ASK FOR SODA, TO "GET HIS DAD", ANOTHER BEDTIME STORY, ETC. THIS OCCURED EVERY 5-10 MINUTES ALL NIGHT. IF HE COULDN'T HAVE ONE THING, HE WOULD JUST ASK FOR SOMETHING ELSE. HE DID APPEAR TO CALM A LITTLE WHEN STAFF WOULD SIT WITH HIM FOR A WHILE. HE IS VERY EXCITED ABOUT HIS DISCHARGE TODAY . NO SPECIFIC COMPLAINTS OR DIFFICULTIES NOTED OTHER THAN HIS HEADACHE AND INSISTANCE ON STAYING UP ALL NIGHT TO WAIT FOR HIS FATHER.
[2023-01-19 05:29] LABS: BASOPHILS ABSOLUTE AUTO 0.06 K/mm3 (0.00-0.23); BASOPHILS PERCENT AUTO 1 % (0-2); EOSINOPHILS ABSOLUTE AUTO 0.45 K/mm3 (0.00-0.68); EOSINOPHILS PERCENT AUTO 5 % (0-6); Hematocrit 49.6 % (37.0-53.0); Hemoglobin 16.4 g/dL (13.5-17.5); IMMATURE GRAN ABSOLUTE AUTO 0.05 K/mm3 (0.00-0.10); IMMATURE GRAN PERCENT AUTO 1 % (0-1); LYMPHOCYTES ABSOLUTE AUTO 2.29 K/mm3 (0.84-5.20); LYMPHOCYTES PERCENT AUTO 27 % (21-46); MONOCYTES ABSOLUTE AUTO 0.73 K/mm3 (0.16-1.47); MONOCYTES PERCENT AUTO 9 % (4-13); Mean Corpuscular HGB Conc 33.1 g/dL (31.5-36.5); Mean Corpuscular Volume 91 fL (80-100); Mean Platelet Volume 11.6 fL (9.1-12.4); NEUTROPHILS ABSOLUTE AUTO 4.84 K/mm3 (1.96-9.15); NEUTROPHILS PERCENT AUTO 58 % (41-73); Platelet Count 151 K/mm3 (150-400); RDW Coefficient Variation 13.9 % (11.7-14.2); RDW Standard Deviation 45.9 fL (35.1-46.3); Red Blood Cell Count 5.46 M/mm3 (4.30-5.90); White Blood Cell Count 8.42 K/mm3 (4.00-11.30)
[2023-01-19 05:54] LABS: Albumin/Globulin Ratio 0.8 (0.8-1.8); Bilirubin, Total 0.7 mg/dL (0.1-1.0); Bun/Creatinine Ratio 18.6 (12.0-20.0); Calcium, Blood 8.7 mg/dL (8.5-10.1); Creatinine, Blood 0.38 mg/dL (0.60-1.20); Globulin, Blood 3.8 g/dL (2.2-4.0); Potassium, Blood 3.5 mmol/L (3.5-5.5); Total Protein, Blood 6.8 g/dL (6.4-8.2)
[2023-01-19] MEDS ORDERED: POTA10T PO (11:30)
[2023-01-19] MEDS ORDERED: HYDCOR10 PO (11:31)
--- NOTE | 2023-01-19 12:28 | NUR ---
PT DISCHARGED FROM THE UNIT. IV REMOVED. DISCHARGE INSTRUCTIONS REVIEWED WITH FATHER. MEDICATIONS FAXED TO PHARMACY. PT LEFT VIA WHEEL CHAIR WITH FATHER.
[2023-01-19] MEDS ORDERED: ONDA4ODT MM (22:54)
== END 2023-01-19 11:54 | disposition home or self-care (01) | DRG 865 ==
LOC: ER 00:37 → ERHOLD 02:14 → ICUW 02:14 → MEDS 01-18 05:31
PROVIDERS: Emergency Medicine; Family Medicine; Internal Medicine; ADMIT Internal Medicine
DX: B34.9 Viral infection, unspecified (principal); I50.23 Acute on chronic systolic (congestive) heart failure; J15.9 Unspecified bacterial pneumonia; E27.1 Primary adrenocortical insufficiency; I42.9 Cardiomyopathy, unspecified; F73 Profound intellectual disabilities; G71.01 Duchenne or Becker muscular dystrophy; R62.59 Other lack of expected normal physiological development in childhood; E83.119 Hemochromatosis, unspecified; Z66 Do not resuscitate; I48.0 Paroxysmal atrial fibrillation; M81.0 Age-related osteoporosis without current pathological fracture; E04.2 Nontoxic multinodular goiter; E78.5 Hyperlipidemia, unspecified; Z20.822 Contact with and (suspected) exposure to COVID-19; K21.9 Gastro-esophageal reflux disease without esophagitis; R77.8 Other specified abnormalities of plasma proteins; I11.0 Hypertensive heart disease with heart failure; I34.0 Nonrheumatic mitral (valve) insufficiency; M62.3 Immobility syndrome (paraplegic); E87.6 Hypokalemia; Z88.0 Allergy status to penicillin; Z88.1 Allergy status to other antibiotic agents; Z79.899 Other long term (current) drug therapy; Z99.3 Dependence on wheelchair; Z79.811 Long term (current) use of aromatase inhibitors; Z79.891 Long term (current) use of opiate analgesic; Z87.19 Personal history of other diseases of the digestive system; Z98.890 Other specified postprocedural states; Z90.49 Acquired absence of other specified parts of digestive tract; Z79.82 Long term (current) use of aspirin; Z79.02 Long term (current) use of antithrombotics/antiplatelets; Z79.51 Long term (current) use of inhaled steroids
CPT/HCPCS: 0241U; 36415; 71045; 80048; 80053; 81001; 83605; 83735; 83880; 84145; 84484; 85025; 87040; 93005; 93010; 93306; 96361; 96374; 96375; 99285-25; A9270; J0692; J0696; J1650; J1720; J1956; J7030; J7050

== ENCOUNTER 2023-01-19 20:15 | Emergency (ER) | payer OTHER ==
[~2023-01-19] VITALS: Ht 180.3 cm; Wt 68.0 kg
[~2023-01-19 20:15] MED LIST changes: +DEPO-TESTO200 MG/1 M IM; +POTA10T PO
[2023-01-19 21:06] LABS: BASOPHILS ABSOLUTE AUTO 0.06 K/mm3 (0.00-0.23); BASOPHILS PERCENT AUTO 1 % (0-2); EOSINOPHILS ABSOLUTE AUTO 0.34 K/mm3 (0.00-0.68); EOSINOPHILS PERCENT AUTO 5 % (0-6); Hematocrit 54.5 % (37.0-53.0); Hemoglobin 18.2 g/dL (13.5-17.5); IMMATURE GRAN ABSOLUTE AUTO 0.04 K/mm3 (0.00-0.10); IMMATURE GRAN PERCENT AUTO 1 % (0-1); LYMPHOCYTES ABSOLUTE AUTO 1.24 K/mm3 (0.84-5.20); LYMPHOCYTES PERCENT AUTO 18 % (21-46); MONOCYTES ABSOLUTE AUTO 0.35 K/mm3 (0.16-1.47); MONOCYTES PERCENT AUTO 5 % (4-13); Mean Corpuscular HGB 30.3 pg (26.0-34.0); Mean Corpuscular HGB Conc 33.4 g/dL (31.5-36.5); Mean Corpuscular Volume 91 fL (80-100); Mean Platelet Volume 10.8 fL (9.1-12.4); NEUTROPHILS PERCENT AUTO 70 % (41-73); Platelet Count 159 K/mm3 (150-400); RDW Coefficient Variation 14.1 % (11.7-14.2); Red Blood Cell Count 6.01 M/mm3 (4.30-5.90); White Blood Cell Count 6.73 K/mm3 (4.00-11.30)
[2023-01-19 21:32] LABS: Albumin, Blood 3.3 g/dL (3.4-5.0); Albumin/Globulin Ratio 0.8 (0.8-1.8); Bilirubin, Total 0.7 mg/dL (0.1-1.0); Bun/Creatinine Ratio 20.2 (12.0-20.0); Calcium, Blood 8.9 mg/dL (8.5-10.1); Creatinine, Blood 0.35 mg/dL (0.60-1.20); Globulin, Blood 4.2 g/dL (2.2-4.0); Potassium, Blood 3.8 mmol/L (3.5-5.5); Total Protein, Blood 7.5 g/dL (6.4-8.2)
[2023-01-19] MEDS ORDERED: ONDA4ODT MM (22:54)
== END 2023-01-19 23:06 | disposition home or self-care (01) ==
LOC: ER 20:15
PROVIDERS: Emergency Medicine
DX: R11.2 Nausea with vomiting, unspecified (principal); E27.1 Primary adrenocortical insufficiency; I10 Essential (primary) hypertension; K21.9 Gastro-esophageal reflux disease without esophagitis; Z88.0 Allergy status to penicillin; Z88.1 Allergy status to other antibiotic agents; Z79.899 Other long term (current) drug therapy; Z79.82 Long term (current) use of aspirin
CPT/HCPCS: 36415; 80053; 83690; 85025; A9270; J1720; J2405; J2920; J7030

== ENCOUNTER 2023-04-08 22:15 | Inpatient (IN) | payer OTHER ==
[~2023-04-08] VITALS: Ht 180.3 cm; Wt 72.5 kg
[~2023-04-08 22:15] MED LIST changes: +Cortef20 MG PO; +OMEGA-3 FISH O1 EAC6 PO; -Omega-31000 MG PO
[2023-04-09 00:38] LABS: Bun/Creatinine Ratio 44.2 (12.0-20.0); Calcium, Blood 8.4 mg/dL (8.5-10.1); Creatinine, Blood 0.45 mg/dL (0.60-1.20); Magnesium, Blood 1.8 mg/dL (1.6-2.4); Potassium, Blood 3.5 mmol/L (3.5-5.5)
[2023-04-09 01:00] LABS: Influenza A, PCR NEGATIVE (NEGATIVE); Influenza B, PCR NEGATIVE (NEGATIVE); Resp Syncytial Virus, PCR NEGATIVE (NEGATIVE); SARS-Cov-2 (COVID-19) PCR, MMC NEGATIVE (NEGATIVE)
[2023-04-09] MEDS ORDERED: FLUTICASONE PRO16 GM (04:02)
[2023-04-09 05:15] VITALS: BP 124/88
--- NOTE | 2023-04-09 05:33 | NUR ---
SHIFT SUMMARY 52 YR M ADMITTED ON 04/09/23 FOR POSSIBLE ADDISONS DISEASE CRISIS. DNR ASSUMED CARE OF PT @ APPROX 0500. PT HAS MULTIPLE SCLEROSIS AND ADDISONS DISEASE. PARENTS ARE PT'S GUARDIAN AND WERE WITH HIM UPON ADMISSION. PT CURRENTLY C/O HEADACHE AND WILL BE GIVEN A PAIN MED PER EMAR. HE IS IN BED RESTING COMFORTABLY NOW. HE IS VERY PLEASANT AND IS COOPERATIVE.
[2023-04-09 06:05] LABS: BASOPHILS ABSOLUTE AUTO 0.02 K/mm3 (0.00-0.23); BASOPHILS PERCENT AUTO 0 % (0-2); EOSINOPHILS ABSOLUTE AUTO 0.01 K/mm3 (0.00-0.68); EOSINOPHILS PERCENT AUTO 0 % (0-6); Hematocrit 46.3 % (37.0-53.0); Hemoglobin 15.5 g/dL (13.5-17.5); IMMATURE GRAN ABSOLUTE AUTO 0.04 K/mm3 (0.00-0.10); IMMATURE GRAN PERCENT AUTO 1 % (0-1); LYMPHOCYTES PERCENT AUTO 13 % (21-46); MONOCYTES ABSOLUTE AUTO 0.27 K/mm3 (0.16-1.47); MONOCYTES PERCENT AUTO 3 % (4-13); Mean Corpuscular HGB 30.4 pg (26.0-34.0); Mean Corpuscular HGB Conc 33.5 g/dL (31.5-36.5); Mean Corpuscular Volume 91 fL (80-100); Mean Platelet Volume 11.2 fL (9.1-12.4); NEUTROPHILS ABSOLUTE AUTO 6.78 K/mm3 (1.96-9.15); NEUTROPHILS PERCENT AUTO 83 % (41-73); Platelet Count 167 K/mm3 (150-400); RDW Coefficient Variation 13.3 % (11.7-14.2); RDW Standard Deviation 44.2 fL (35.1-46.3); White Blood Cell Count 8.22 K/mm3 (4.00-11.30)
[2023-04-09 06:31] LABS: Albumin, Blood 2.8 g/dL (3.4-5.0); Albumin/Globulin Ratio 0.8 (0.8-1.8); Bilirubin, Total 0.4 mg/dL (0.1-1.0); Bun/Creatinine Ratio 37.7 (12.0-20.0); Calcium, Blood 7.7 mg/dL (8.5-10.1); Creatinine, Blood 0.48 mg/dL (0.60-1.20); Globulin, Blood 3.6 g/dL (2.2-4.0); Potassium, Blood 3.9 mmol/L (3.5-5.5); Total Protein, Blood 6.4 g/dL (6.4-8.2)
[2023-04-09 08:11] VITALS: BP 118/80
[2023-04-09 15:45] VITALS: BP 124/87
--- NOTE | 2023-04-09 17:19 | NUR ---
SHIFT SUMMARY PATIENT WITH NO ACUTE ISSUES DURING THIS SHIFT. DENIES ANY FURTHER NAUSEA, VOMITING OR HEADACHE TODAY. TOLERATING PO FLUIDS AND FOOD. BED IN LOW POSITION, CALL LIGHT IN REACH. WILL CONTINUE TO MONITOR.
[2023-04-09 19:16] VITALS: BP 134/92
--- NOTE | 2023-04-10 04:04 | NUR ---
SHIFT SUMMARY 52 YR M ADMITTED ON 04/09/23 FOR POSSIBLE ADDISONS CRISIS. DNR. NO ACUTE CHANGES THIS SHIFT. PT HAS BEEN VERY PLEASANT AND COOPERATIVE W/ CARE. CALLS APPROPRIATELY FOR HELP WITH URINAL. NO C/O N/V, PAIN OR DISCOMFORT THIS SHIFT. HE HAS SLEPT FOR MOST OF THIS SHIFT.
[2023-04-10 04:44] VITALS: BP 140/91
[2023-04-10 05:54] LABS: BASOPHILS ABSOLUTE AUTO 0.04 K/mm3 (0.00-0.23); BASOPHILS PERCENT AUTO 1 % (0-2); EOSINOPHILS ABSOLUTE AUTO 0.09 K/mm3 (0.00-0.68); EOSINOPHILS PERCENT AUTO 1 % (0-6); Hematocrit 43.5 % (37.0-53.0); Hemoglobin 14.7 g/dL (13.5-17.5); IMMATURE GRAN ABSOLUTE AUTO 0.03 K/mm3 (0.00-0.10); IMMATURE GRAN PERCENT AUTO 0 % (0-1); LYMPHOCYTES PERCENT AUTO 27 % (21-46); MONOCYTES PERCENT AUTO 8 % (4-13); Mean Corpuscular HGB 30.1 pg (26.0-34.0); Mean Corpuscular HGB Conc 33.8 g/dL (31.5-36.5); Mean Corpuscular Volume 89 fL (80-100); Mean Platelet Volume 11.8 fL (9.1-12.4); NEUTROPHILS ABSOLUTE AUTO 4.54 K/mm3 (1.96-9.15); NEUTROPHILS PERCENT AUTO 62 % (41-73); Platelet Count 163 K/mm3 (150-400); RDW Coefficient Variation 13.3 % (11.7-14.2); RDW Standard Deviation 42.9 fL (35.1-46.3); Red Blood Cell Count 4.89 M/mm3 (4.30-5.90)
[2023-04-10 06:41] LABS: Albumin, Blood 2.8 g/dL (3.4-5.0); Albumin/Globulin Ratio 0.8 (0.8-1.8); Bilirubin, Total 0.5 mg/dL (0.1-1.0); Bun/Creatinine Ratio 37.3 (12.0-20.0); Calcium, Blood 7.9 mg/dL (8.5-10.1); Creatinine, Blood 0.4 mg/dL (0.60-1.20); Globulin, Blood 3.4 g/dL (2.2-4.0); Potassium, Blood 3.4 mmol/L (3.5-5.5); Total Protein, Blood 6.2 g/dL (6.4-8.2)
[2023-04-10 07:42] VITALS: BP 149/98
--- NOTE | 2023-04-10 14:14 | NUR ---
CALLED TO DISCUSS PT STATUS. PT IS ALERT AND ORIENTED X3-4. COGNITIVE DEFICIT AT BASELINE. PLAN TO DISCHARGE HOME TODAY.
[2023-04-10 15:50] VITALS: BP 143/97
[2023-04-10] MEDS ORDERED: DOXY100 PO (16:23)
--- NOTE | 2023-04-10 17:42 | NUR ---
LATE ENTRY- DISCHARGE PT DISCHARGED HOME WITH PARENTS. PT AT BASELINE. DISCHARGE INSTRUCTIONS DISCUSSED WITH PARENTS. NO QUESTIONS AT THIS TIME. PT ALERT WITH COGNITIVE DEFICIT. BEDREST AND ABLE TO REPOSITION HIMSELF IN BED. THIS IS PATIENTS BASELINE. PARENTS EXPRESSED CONCERN FOR INCREASED FREQUENCY OF MIGRAINE HEADACHES. EMPHYSIZED THE IMPORTANCE OF DISCUSSING THESE CONCERNS WITH PRIMARY PROVIDER. PARENTS AGREED. NO OTHER QUESTIONS AT THIS TIME.
== END 2023-04-10 16:40 | disposition home or self-care (01) | DRG 644 ==
LOC: ER 22:15 → MEDS 22:16
PROVIDERS: Family Medicine; Student in an Organized Health Care Education/Training Program; ADMIT Student in an Organized Health Care Education/Training Program
DX: E27.1 Primary adrenocortical insufficiency (principal); E87.1 Hypo-osmolality and hyponatremia; Z20.822 Contact with and (suspected) exposure to COVID-19; Z66 Do not resuscitate; D75.839 Thrombocytosis, unspecified; R73.9 Hyperglycemia, unspecified; J30.2 Other seasonal allergic rhinitis; I95.9 Hypotension, unspecified; I10 Essential (primary) hypertension; I48.0 Paroxysmal atrial fibrillation; R11.0 Nausea; E78.5 Hyperlipidemia, unspecified; G71.01 Duchenne or Becker muscular dystrophy; K21.9 Gastro-esophageal reflux disease without esophagitis; E83.119 Hemochromatosis, unspecified; E04.9 Nontoxic goiter, unspecified; Z88.0 Allergy status to penicillin; Z88.1 Allergy status to other antibiotic agents; Z79.891 Long term (current) use of opiate analgesic; Z90.49 Acquired absence of other specified parts of digestive tract; Z98.890 Other specified postprocedural states; Z96.89 Presence of other specified functional implants; Z79.82 Long term (current) use of aspirin; Z79.899 Other long term (current) drug therapy
CPT/HCPCS: 0241U; 36415; 80048; 80053; 82024; 82947; 83735; 84145; 85025; 96361; 96372; 96374; 96375; 96376; 99284-25; A9270; G0378; J1650; J1720; J2405; J7030

== ENCOUNTER 2023-08-28 19:38 | Inpatient (IN) | payer OTHER ==
[~2023-08-28] VITALS: Ht 180.3 cm; Wt 73.9 kg
[~2023-08-28 19:38] MED LIST changes: +DOXY100 PO; +Doxycycline Mo100 M1 PO; +FLUTICASONE PRO16 GM
[2023-08-28 20:15] LABS: BASOPHILS ABSOLUTE AUTO 0.06 K/mm3 (0.00-0.23); BASOPHILS PERCENT AUTO 1 % (0-2); EOSINOPHILS ABSOLUTE AUTO 0.27 K/mm3 (0.00-0.68); EOSINOPHILS PERCENT AUTO 3 % (0-6); Hemoglobin 18.5 g/dL (13.5-17.5); IMMATURE GRAN ABSOLUTE AUTO 0.05 K/mm3 (0.00-0.10); IMMATURE GRAN PERCENT AUTO 1 % (0-1); LYMPHOCYTES PERCENT AUTO 18 % (21-46); MONOCYTES ABSOLUTE AUTO 0.49 K/mm3 (0.16-1.47); MONOCYTES PERCENT AUTO 6 % (4-13); Mean Corpuscular HGB 29.2 pg (26.0-34.0); Mean Corpuscular HGB Conc 32.5 g/dL (31.5-36.5); Mean Corpuscular Volume 90 fL (80-100); Mean Platelet Volume 11.6 fL (9.1-12.4); NEUTROPHILS ABSOLUTE AUTO 5.85 K/mm3 (1.96-9.15); NEUTROPHILS PERCENT AUTO 71 % (41-73); Platelet Count 184 K/mm3 (150-400); RDW Coefficient Variation 14.3 % (11.7-14.2); RDW Standard Deviation 46.7 fL (35.1-46.3); Red Blood Cell Count 6.33 M/mm3 (4.30-5.90); White Blood Cell Count 8.22 K/mm3 (4.00-11.30)
[2023-08-28 20:34] LABS: Albumin, Blood 3.9 g/dL (3.4-5.0); Albumin/Globulin Ratio 0.8 (0.8-1.8); Bilirubin, Total 0.6 mg/dL (0.1-1.0); Bun/Creatinine Ratio 37.6 (12.0-20.0); Creatinine, Blood 0.56 mg/dL (0.60-1.20); Globulin, Blood 5.1 g/dL (2.2-4.0); Potassium, Blood 4.4 mmol/L (3.5-5.5)
[2023-08-28 23:32] LABS: Influenza A, PCR NEGATIVE (NEGATIVE); Influenza B, PCR NEGATIVE (NEGATIVE); Resp Syncytial Virus, PCR NEGATIVE (NEGATIVE); SARS-Cov-2 (COVID-19) PCR, MMC NEGATIVE (NEGATIVE)
[2023-08-29] VITALS (8 sets, daily range): BP systolic 125–170; BP diastolic 82–116
[2023-08-29 04:17] LABS: BASOPHILS ABSOLUTE AUTO 0.07 K/mm3 (0.00-0.23); BASOPHILS PERCENT AUTO 1 % (0-2); EOSINOPHILS ABSOLUTE AUTO 0.24 K/mm3 (0.00-0.68); EOSINOPHILS PERCENT AUTO 2 % (0-6); Hematocrit 49.9 % (37.0-53.0); Hemoglobin 16.7 g/dL (13.5-17.5); IMMATURE GRAN ABSOLUTE AUTO 0.06 K/mm3 (0.00-0.10); IMMATURE GRAN PERCENT AUTO 1 % (0-1); LYMPHOCYTES PERCENT AUTO 16 % (21-46); MONOCYTES ABSOLUTE AUTO 0.89 K/mm3 (0.16-1.47); MONOCYTES PERCENT AUTO 7 % (4-13); Mean Corpuscular HGB 29.6 pg (26.0-34.0); Mean Corpuscular HGB Conc 33.5 g/dL (31.5-36.5); Mean Corpuscular Volume 89 fL (80-100); Mean Platelet Volume 11.4 fL (9.1-12.4); NEUTROPHILS ABSOLUTE AUTO 8.93 K/mm3 (1.96-9.15); NEUTROPHILS PERCENT AUTO 73 % (41-73); Platelet Count 196 K/mm3 (150-400); RDW Standard Deviation 45.1 fL (35.1-46.3); Red Blood Cell Count 5.64 M/mm3 (4.30-5.90); White Blood Cell Count 12.19 K/mm3 (4.00-11.30)
[2023-08-29 04:44] LABS: Albumin, Blood 3.3 g/dL (3.4-5.0); Albumin/Globulin Ratio 0.8 (0.8-1.8); Bilirubin, Total 0.7 mg/dL (0.1-1.0); Bun/Creatinine Ratio 29.9 (12.0-20.0); Calcium, Blood 8.6 mg/dL (8.5-10.1); Creatinine, Blood 0.54 mg/dL (0.60-1.20); Globulin, Blood 4.2 g/dL (2.2-4.0); Magnesium, Blood 1.7 mg/dL (1.6-2.4); Total Protein, Blood 7.5 g/dL (6.4-8.2)
--- NOTE | 2023-08-29 05:01 | NUR ---
ARRIVAL TO ICU 15 PT A/O TO SELF AND PLACE. CAN STATE FIRST NAME AND THAT HES IN THE HOSPITAL. UNABLE TO STATE LAST NAME, YEAR, OR CITY. FOLLOWS DIRECTIONS AND MOVES ALL EXTREMITIES. WHEN PT INITIALLY ASKED IF HIS CHEST HURT, PT STATED YES AND POINTED TO CHEST. UNABLE TO STATE 1-10 NUMBER. STATES "IT HURTS BAD". WHEN ASKED IF HIS CHEST HEART ONE WEEK, ONE MONTH, ONE YEAR AGO. PT STATED YES TO ALL OF THEM. PT THEN ASKED LATER IF HE HURT ANYWHERE. PT SHOOK HEAD NO. ABD DISTENDED AND FIRM. INCONT AT BASELINE. BRIEF C/D/I. VSS. ON RA. 0130 TROPONIN NOT DRAWN IN ED. DRAW IN ICU AT APPROX 0405. RESULT CALLED TO RESIDENT ASHLEY. NO NEW ORDERS. WILL REPORT OFF TO ONCOMING RN.
--- NOTE | 2023-08-29 09:30 | NUR ---
SHIFT ASSESSMENT PT RESTING COMFORTABLY, AWAKENS EASILY TO VERBAL STIMULI. STATES NAME AND LOCATION. WHEN ASKED ABOUT ANY DISCOMFORT PT POINTS TO CHEST, STATES PAIN IMPROVES WITH POSITIONING. TOLERATING PO INTAKE WELL. BRIEF IN PLACE, C/D. VSS. AWAITING ECHO. WILL MONITOR CLOSELY.
[2023-08-29] MEDS ORDERED: HYDCOR10 PO (11:17)
--- NOTE | 2023-08-29 17:29 | NUR ---
TRANSFERRED NOTE: PATIENT ARRIVES TO ROOM AT 1650 FROM ICU FOR DX'S OF PNEUMONIA. ASSUMED CARE OF PATIENT. PATIENT IS ALERT AND ORIENTED TO SELF AND PLACED. MUMBLES I SPEECH AND SLOW TO RESPOND. ON TELE, NO CHANGES IN RHYTM HR IN THE LOW 70'S TO LOW 80'S BPM. HYPERTENSIVE. PIV TO RAC SALINE LOCKED. BED ALARM ON FOR SAFETY. CALL LIGHT IN REACH.
--- NOTE | 2023-08-30 01:15 | NUR ---
PT C/O OF RIGHT SIDED CHEST PAIN. TELE CALLED PT RUNNING SINUS RHYTHM AT 88 BPM WITH OCCASSIONAL PVC'S. VITALS OBTAINED-B/P:122/74, PULSE: 83BPM, SPO2: 92, RESPIRATIONS:15. PT HAD BEEN COUGHING PRIOR TO THE REPORTED CHEST PAIN. PT IS BEING TREATED FOR PNEUMONIA IN THE LOWER RIGHT LOBE AND CHEST PAIN. DISCUSSED WITH CHARGE NURSE ADMINISTERING TYLENOL FOR THE PAIN-PT REPORTS PAIN RESOLVED FOLLOWING TYLENOL.
[2023-08-30 01:21] VITALS: BP 122/74
[2023-08-30 03:48] VITALS: BP 123/85
[2023-08-30 04:48] LABS: BASOPHILS ABSOLUTE AUTO 0.05 K/mm3 (0.00-0.23); BASOPHILS PERCENT AUTO 1 % (0-2); EOSINOPHILS ABSOLUTE AUTO 0.39 K/mm3 (0.00-0.68); EOSINOPHILS PERCENT AUTO 4 % (0-6); Hematocrit 47.7 % (37.0-53.0); IMMATURE GRAN ABSOLUTE AUTO 0.07 K/mm3 (0.00-0.10); IMMATURE GRAN PERCENT AUTO 1 % (0-1); LYMPHOCYTES ABSOLUTE AUTO 2.39 K/mm3 (0.84-5.20); LYMPHOCYTES PERCENT AUTO 26 % (21-46); MONOCYTES ABSOLUTE AUTO 0.92 K/mm3 (0.16-1.47); MONOCYTES PERCENT AUTO 10 % (4-13); Mean Corpuscular HGB 29.7 pg (26.0-34.0); Mean Corpuscular HGB Conc 33.5 g/dL (31.5-36.5); Mean Corpuscular Volume 89 fL (80-100); Mean Platelet Volume 11.8 fL (9.1-12.4); NEUTROPHILS ABSOLUTE AUTO 5.25 K/mm3 (1.96-9.15); NEUTROPHILS PERCENT AUTO 58 % (41-73); Platelet Count 184 K/mm3 (150-400); RDW Coefficient Variation 14.1 % (11.7-14.2); Red Blood Cell Count 5.39 M/mm3 (4.30-5.90); White Blood Cell Count 9.07 K/mm3 (4.00-11.30)
[2023-08-30 05:14] LABS: Albumin/Globulin Ratio 0.8 (0.8-1.8); Bun/Creatinine Ratio 29.5 (12.0-20.0); Calcium, Blood 8.4 mg/dL (8.5-10.1); Creatinine, Blood 0.51 mg/dL (0.60-1.20); Globulin, Blood 3.8 g/dL (2.2-4.0); Magnesium, Blood 1.7 mg/dL (1.6-2.4); Potassium, Blood 3.8 mmol/L (3.5-5.5); Total Protein, Blood 6.8 g/dL (6.4-8.2)
--- NOTE | 2023-08-30 05:44 | NUR ---
PT BLOOD GLUCOSE 69 WITH MORNING LABS, PT ASYMPTOMATIC-4 OZ APPLE JUICE GIVEN.
--- NOTE | 2023-08-30 06:26 | NUR ---
SHIFT SUMMARY. NO ACUTE CHANGES. PATIENT IS A&O TO SELF. PATIENT CALLS OUT AT TIME FOR ASSISTANCE, AND CALLS AT TIMES. PATIENT UP ALOT T/O SHIFT UNABLE TO GET COMFORTABLE. PATIENT C/O CHEST PAIN ONCE THIS SHIFT PREVIOUS NOTES. PATIENT IS ABLE TO HELP ROLL IN BED WITH REPOSITIONING AND ATTENDS CHANGES. PATIENT IS PLEASANT, CALM, AND COOPERATIVE WITH CARE. BED IS LOCKED IN THE LOWEST POSITION WITH CALL LIGHT IN REACH.
[2023-08-30 07:33] VITALS: BP 152/114
[2023-08-30] MEDS ORDERED: METO50ER PO (11:27)
[2023-08-30] MEDS ORDERED: DOXY100 PO (11:29)
[2023-08-30] MEDS ORDERED: VISBIOME 112.51 EACH PO (11:30)
[2023-08-30] MEDS ORDERED: CEFP200 PO (11:31)
--- NOTE | 2023-08-30 12:14 | NUR ---
SHIFT/DISCHARGE SUMMARY: PATIENT IS AWAKE, ALERT AND ORIENTED TO SELF AND PLACED. DEVELOPMENTAL DELAYED AT BASELINE, PLEASANT AND COOPERATIVE c CARE PROVIDED. PATIENT DENIES CP/PRESSURE, N/V DIZZINESS AND SOB. PATIENT ON TELE, SR HR IN THE 90'S BPM c OCCASIONAL PVC. PATIENT IS REQUESTING TO GO HOME. PER PATIENT "I WANT TO GO HOME, I'M GOOD NOW." PATIENT IS EATING AND DRINKING WELL, INCONTINENCE OF BLADDER, MELISA CARE AND ATTENDS CHANGED PRN. PATIENT RECEIVED IV ABX AND SCHEDULED MEDS PER EMAR. VITAL SIGNS REVIEWED. PIV TO RAC DC'D. PATIENT DISCHARGE HOME. DISCHARGE INSTRUCTIONS PACKET GIVEN TO FATHER/MOTHER AT BEDSIDE. EDUCATE PATIENT AND PARENTS REGARDING ADMITTING DX'S OF PNEUMONIA, S/S, TX, SELF CARE, TO TAKE MEDICATIONS PRESCRIBED AND F/U c PCP. PATIENT AND PARENTS VERBALIZED UNDERSTANDING AND NO FURTHER QUESTIONS AT THIS TIME. RX WAS FAXED TO PATIENT/PARENTS PREFERRED PHARMACY ([facility]). ALL PATIENT PERSONAL BELONGINGS WERE SENT HOME c THE PATIENT. PATIENT LEFT THE ROOM AT AROUND 1150'S AND WAS TRANSPORTED VIA WHEELCHAIR TO PATIENT ENTRANCE.
== END 2023-08-30 11:55 | disposition home health service (06) | DRG 194 ==
LOC: ER 19:38 → ERHOLD 23:11 → ICUE 23:11 → MEDS 08-29 16:42
PROVIDERS: Emergency Medicine; Hospitalist; Student in an Organized Health Care Education/Training Program; ADMIT Student in an Organized Health Care Education/Training Program
DX: J18.9 Pneumonia, unspecified organism (principal); E27.1 Primary adrenocortical insufficiency; I42.9 Cardiomyopathy, unspecified; I50.22 Chronic systolic (congestive) heart failure; K21.9 Gastro-esophageal reflux disease without esophagitis; I48.0 Paroxysmal atrial fibrillation; E78.5 Hyperlipidemia, unspecified; G71.01 Duchenne or Becker muscular dystrophy; I11.0 Hypertensive heart disease with heart failure; R62.50 Unspecified lack of expected normal physiological development in childhood; E04.1 Nontoxic single thyroid nodule; E83.119 Hemochromatosis, unspecified; R77.8 Other specified abnormalities of plasma proteins; Z90.49 Acquired absence of other specified parts of digestive tract; Z87.19 Personal history of other diseases of the digestive system; Z98.890 Other specified postprocedural states; Z11.52 Encounter for screening for COVID-19; Z88.0 Allergy status to penicillin; Z88.1 Allergy status to other antibiotic agents; Z79.82 Long term (current) use of aspirin; Z79.891 Long term (current) use of opiate analgesic; Z79.899 Other long term (current) drug therapy; Z79.811 Long term (current) use of aromatase inhibitors
CPT/HCPCS: 0241U; 36415; 80053; 83735; 83880; 84100; 84145; 84484; 85025; 93005; 93010; 96361; 96374; 99285-25; A9270; C8929; J0696; J1650; J7030; Q9957

== ENCOUNTER 2023-10-10 21:58 | Inpatient (IN) | payer OTHER ==
[~2023-10-10] VITALS: Ht 180.3 cm; Wt 75.5 kg
[~2023-10-10 21:58] MED LIST changes: +CEFP200 PO; +METO50ER PO; +VISBIOME 112.51 EACH PO
[2023-10-10 22:24] LABS: BASOPHILS ABSOLUTE AUTO 0.08 K/mm3 (0.00-0.23); BASOPHILS PERCENT AUTO 1 % (0-2); EOSINOPHILS ABSOLUTE AUTO 0.41 K/mm3 (0.00-0.68); EOSINOPHILS PERCENT AUTO 4 % (0-6); Hematocrit 53.8 % (37.0-53.0); Hemoglobin 17.7 g/dL (13.5-17.5); IMMATURE GRAN ABSOLUTE AUTO 0.03 K/mm3 (0.00-0.10); IMMATURE GRAN PERCENT AUTO 0 % (0-1); LYMPHOCYTES ABSOLUTE AUTO 1.77 K/mm3 (0.84-5.20); LYMPHOCYTES PERCENT AUTO 19 % (21-46); MONOCYTES ABSOLUTE AUTO 0.59 K/mm3 (0.16-1.47); MONOCYTES PERCENT AUTO 6 % (4-13); Mean Corpuscular HGB 29.1 pg (26.0-34.0); Mean Corpuscular HGB Conc 32.9 g/dL (31.5-36.5); Mean Corpuscular Volume 89 fL (80-100); Mean Platelet Volume 11.7 fL (9.1-12.4); NEUTROPHILS ABSOLUTE AUTO 6.48 K/mm3 (1.96-9.15); NEUTROPHILS PERCENT AUTO 69 % (41-73); Platelet Count 180 K/mm3 (150-400); RDW Coefficient Variation 14.7 % (11.7-14.2); Red Blood Cell Count 6.08 M/mm3 (4.30-5.90); White Blood Cell Count 9.36 K/mm3 (4.00-11.30)
[2023-10-10 23:54] LABS: Albumin, Blood 3.2 g/dL (3.4-5.0); Albumin/Globulin Ratio 0.8 (0.8-1.8); Bilirubin, Total 0.8 mg/dL (0.1-1.0); Bun/Creatinine Ratio 34.6 (12.0-20.0); Calcium, Blood 8.7 mg/dL (8.5-10.1); Creatinine, Blood 0.41 mg/dL (0.60-1.20); Globulin, Blood 4.2 g/dL (2.2-4.0); Magnesium, Blood 1.6 mg/dL (1.6-2.4); Potassium, Blood 4.2 mmol/L (3.5-5.5); Total Protein, Blood 7.4 g/dL (6.4-8.2)
[2023-10-10 23:57] LABS: Base Excess Venous -1.7 mmol/L; Bicarbonate Venous 23.5 mmol/L (24.0-30.0); PCO2 Venous 36.6 mmHg (38-42); pH Blood Venous 7.41 (7.34-7.37)
[2023-10-10 23:58] LABS: Influenza A, PCR NEGATIVE (NEGATIVE); Influenza B, PCR NEGATIVE (NEGATIVE); Resp Syncytial Virus, PCR NEGATIVE (NEGATIVE); SARS-Cov-2 (COVID-19) PCR, MMC NEGATIVE (NEGATIVE)
[2023-10-11] VITALS (46 sets, daily range): BP systolic 58–129; BP diastolic 34–93
[2023-10-11 02:42] LABS: Source, Urine Clean Catch
[2023-10-11 02:46] LABS: Bilirubin, Urine Neg (Neg); Blood, Urine 3+ (Neg); Glucose Qualitative, Urine Neg (Neg); Ketones, Urine 3+ (Neg); Leukocyte Esterase, Urine Neg (Neg); Nitrite, Urine Neg (Neg); Protein, Urine 2+ (Neg); Urobilinogen, Urine NORM (Normal)
[2023-10-11 02:49] LABS: Appearance, Urine Clear (Clear); Color, Urine Yellow (P-Yellow)
[2023-10-11 02:51] LABS: Amorphous Light (0-Heavy); Bacteria Not Seen /hpf; Squamous Epithelial Cells Not Seen /hpf (Few); White Blood Cells, Urine Not Seen /hpf (0-5)
[2023-10-11] MEDS ORDERED: CARV3.125 PO (03:57)
--- NOTE | 2023-10-11 05:57 | NUR ---
ENGINEERING DOCUMENTATION SPECIALIST SUMMARY PT ARRIVED FROM ER AND WAS TRANSFERED TI PCU BED W PARENTS IN THE ROOM. PT'S FATHER PROVIDING MEDICAL HX AND MEDICATION LIST. PT'S BP WNL AND STABLE. MONITOR SHOWING SR 80'S-90'S. PT AFEBRILE. SPO2 >92% ON RM AIR. PT HAS PEREZ CATHETER THAT IS PATENT AND DRAINING DARK YELLOW URINE. PER REQUEST OF THE PT'S FATHETER/POA THE PT'S CODE STATUS WAS CHANGED TO LIMITED W NO COMPRESSIONS. PT SLEEPING COMFORTABLY IN BED SINCE ARRIVAL TO THE UNIT. PT HAS BEEN ALERT AND FOLLOWING COMMANDS THOUGH HE IS MOSTLY NON-VERBAL. WILL REPORT TO ONCOMING RN.
[2023-10-11 05:59] LABS: Bun/Creatinine Ratio 29.4 (12.0-20.0); Calcium, Blood 7.8 mg/dL (8.5-10.1); Creatinine, Blood 0.44 mg/dL (0.60-1.20); Potassium, Blood 4.5 mmol/L (3.5-5.5)
--- NOTE | 2023-10-11 06:42 | NUR ---
TROPONIN THIS RN CONTACTING LAB DUE TO 0500 TROPONIN PENDING STIL AT 0630. STORE GROCERY MERCHANDISER ATTEMPTING TO LOCATE SAMPLE TO GET RESULTS. SYSTEM DEVELOPER ASSOCIATE MANAGER NOTIFIED.
--- NOTE | 2023-10-11 11:57 | NUR ---
ASSUMPTION OF CARE PT TX TO ICU FROM PCU SECONDARY TO HYPOTENSION & POTENTIAL RESP FAILURE. UPON ARRIVAL PT ALERT TO BASELINE, STATES NAME AND FOLLOWS SIMPLE COMMANDS. PT C/O MILD HEADACHE, DENIES CP/SOB. NSR c PVC'S ON THE PRODUCTION SUPPORT SPECIALIST. SBP 118 c MAP 87, HAVE NOT STARTED DOPAMINE. PEREZ CATH PATENT, DRAINING [place] URINE. WILL MONITOR CLOSELY.
--- NOTE | 2023-10-11 17:20 | NUR ---
SHIFT SUMMARY PT REMAINS ALERT TO PERSON AND FAMILY. FOLLOWING DIRECTIONS, MCDONALD, ASSISTING WITH TURNS. TOLERATING SIPS OF WATER AND CRACKERS WITH MEDS. DENIES CP/ SOB. HEADACHE/ GENERALIZED PAIN IMPROVED AFTER PO PAIN MEDS. IN NSR c PVC'S. DOPAMINE HAS NOT BEEN INITIATED, MAP >65. PEREZ CATH DRAINING [place] URINE, NO BM. SERIAL TROPONINS ORDERED. NO OTHER ACUTE CHANGES.
--- NOTE | 2023-10-11 20:15 | NUR ---
PATIENT RESTING IN BED, USING CALL LIGHT APPROPRIATELY, DEVELOPMENTALLY DELAYED, ABLE TO MAKE NEEDS KNOWN. ASKING FOR WATER TO DRINK, MULTIPLE REMINDERS THAT HE CAN ONLY HAVE SIPS AND WITH PILLS AT THIS TIME. ATTEMPTING TO FIND A BOOK FOR PATIENT, ABLE TO PROVIDE COLORING PAPERS. BLOCK LAYER SHOWING SINUS 100'S. DOPAMINE REMAINS OFF.
[2023-10-11 22:49] LABS: Source, Urine Foley catheter
[2023-10-11 22:52] LABS: Bilirubin, Urine Neg (Neg); Blood, Urine 2+ (Neg); Glucose Qualitative, Urine Neg (Neg); Ketones, Urine 4+ (Neg); Leukocyte Esterase, Urine Neg (Neg); Nitrite, Urine Neg (Neg); Protein, Urine 1+ (Neg); Specific Gravity, Urine 1.025 (1.003-1.022); Urobilinogen, Urine NORM (Normal)
[2023-10-11 23:14] LABS: Appearance, Urine Clear (Clear); Color, Urine Yellow (P-Yellow)
[2023-10-11 23:15] LABS: Amorphous Light (0-Heavy); Bacteria Not Seen /hpf; Mucus Light (0-Heavy); Squamous Epithelial Cells Rare /hpf (Few); White Blood Cells, Urine 0-2 /hpf (0-5)
[2023-10-12] VITALS (38 sets, daily range): BP systolic 103–145; BP diastolic 66–102
[2023-10-12 03:39] LABS: BASOPHILS ABSOLUTE AUTO 0.04 K/mm3 (0.00-0.23); BASOPHILS PERCENT AUTO 0 % (0-2); EOSINOPHILS ABSOLUTE AUTO 0.06 K/mm3 (0.00-0.68); EOSINOPHILS PERCENT AUTO 1 % (0-6); Hematocrit 47.9 % (37.0-53.0); Hemoglobin 15.4 g/dL (13.5-17.5); IMMATURE GRAN ABSOLUTE AUTO 0.05 K/mm3 (0.00-0.10); IMMATURE GRAN PERCENT AUTO 1 % (0-1); LYMPHOCYTES ABSOLUTE AUTO 1.42 K/mm3 (0.84-5.20); LYMPHOCYTES PERCENT AUTO 14 % (21-46); MONOCYTES ABSOLUTE AUTO 0.51 K/mm3 (0.16-1.47); MONOCYTES PERCENT AUTO 5 % (4-13); Mean Corpuscular HGB 29.2 pg (26.0-34.0); Mean Corpuscular HGB Conc 32.2 g/dL (31.5-36.5); Mean Corpuscular Volume 91 fL (80-100); Mean Platelet Volume 11.5 fL (9.1-12.4); NEUTROPHILS ABSOLUTE AUTO 8.17 K/mm3 (1.96-9.15); NEUTROPHILS PERCENT AUTO 80 % (41-73); Platelet Count 154 K/mm3 (150-400); RDW Coefficient Variation 14.7 % (11.7-14.2); RDW Standard Deviation 48.6 fL (35.1-46.3); Red Blood Cell Count 5.27 M/mm3 (4.30-5.90); White Blood Cell Count 10.25 K/mm3 (4.00-11.30)
[2023-10-12 04:03] LABS: Albumin/Globulin Ratio 0.8 (0.8-1.8); Bilirubin, Total 0.5 mg/dL (0.1-1.0); Bun/Creatinine Ratio 58.5 (12.0-20.0); Calcium, Blood 8.3 mg/dL (8.5-10.1); Creatinine, Blood 0.34 mg/dL (0.60-1.20); Globulin, Blood 3.8 g/dL (2.2-4.0); Potassium, Blood 4.5 mmol/L (3.5-5.5); Total Protein, Blood 6.8 g/dL (6.4-8.2)
--- NOTE | 2023-10-12 06:18 | NUR ---
DOCTOR CRYSTAL NOTIFIED OF GLUCOSE OF 52 ON AM LABS, DIET ADVANCED TO FULL LIQUID. PUDDING, PEPSI GIVEN WITHOUT DIFFICULTY. GLUCOSE CONTINUES TO BE 50, ABLE TO DRINK 1/2 OF ENSURE AND PLAN TO GIVE D5 BOLUS. PATIENT NOT SYMPTOMATIC, RESTING QUIETLY WATCHING TV
--- NOTE | 2023-10-12 06:56 | NUR ---
SUMMARY PATIENT SLEEPING OFF AND ON T/O NIGHT. AWAKENS EASILY. GLUCOSE DOWN TO 50'S THIS AM, TREATING WITH PO INTAKE AND DOSE OF D5 250 CC BOLUS. HEART RATE 90-100'S T/O NIGHT. DOPAMINE REMAINS OFF.
--- NOTE | 2023-10-12 09:15 | NUR ---
SHIFT ASSESSMENT ASSUMED CARE OF PT @ 0700, BEDSIDE REPORT RECEIVED FROM BIA BALBUENA. PT ALERT AND ORIENTED TO BASELINE. FOLLOWING COMMANDS, RELAYING NEEDS, ATTEMPTING TO ASSIST WITH TURNS. NON AMBULATORY AT BASELINE. DENIES CP OR SOB. TOLERATING PO INTAKE WELL. PEREZ CATH PATENT, DRAINING [place] URINE. 1 LARGE LOOSE BM THIS AM, PT INCONTINENT. PT NOW PCU STATUS.
--- NOTE | 2023-10-12 17:50 | NUR ---
SHIFT SUMMARY PT REMAINS ALERT AND ORIENTED TO BASELINE, LAUGHING WITH STAFF. APPEARS MUCH BETTER, FATHER SANCHEZ ALSO STATED HE LOOKS LIKE HIMSELF. PTS DIET ADVANCED, SEE ST ORDERS. ECHO COMPLETE TODAY. CHG BATH COMPLETE. NO OTHER ACUTE CHANGES.
--- NOTE | 2023-10-12 20:29 | NUR ---
PATIENT RESTING QUIETLY, AWAKENS TO SLIGHT STIMULI. AWARE OF BEING IN HOSPITAL AND ABLE TO VERBALIZE TO MAKE NEEDS KNOWN. ASSISTING WITH REPOSITIONING IN BED. SENIOR DATABASE PROGRAMMER SHOWING SR RATE 90-100'S OCCASIONAL PVC. SITTER AT BEDSIDE PROVIDING CALMING EFFECT FOR PATIENT.
[2023-10-13] VITALS (19 sets, daily range): BP systolic 116–150; BP diastolic 83–112
--- NOTE | 2023-10-13 02:16 | NUR ---
WHILE SLEEPING HAVING SNORING RESP WITH BIOX DOWN TO 80% AWAKENS TO SLIGHT STIMULI, BOOST IN BED AND REPOSITIONED TO HIS BACK BIOX NOW 95% ON RA
[2023-10-13 03:41] LABS: BASOPHILS ABSOLUTE AUTO 0.03 K/mm3 (0.00-0.23); BASOPHILS PERCENT AUTO 0 % (0-2); EOSINOPHILS ABSOLUTE AUTO 0.07 K/mm3 (0.00-0.68); EOSINOPHILS PERCENT AUTO 1 % (0-6); Hematocrit 44.6 % (37.0-53.0); Hemoglobin 15.1 g/dL (13.5-17.5); IMMATURE GRAN ABSOLUTE AUTO 0.04 K/mm3 (0.00-0.10); IMMATURE GRAN PERCENT AUTO 1 % (0-1); LYMPHOCYTES ABSOLUTE AUTO 1.11 K/mm3 (0.84-5.20); LYMPHOCYTES PERCENT AUTO 15 % (21-46); MONOCYTES ABSOLUTE AUTO 0.38 K/mm3 (0.16-1.47); MONOCYTES PERCENT AUTO 5 % (4-13); Mean Corpuscular HGB 29.5 pg (26.0-34.0); Mean Corpuscular HGB Conc 33.9 g/dL (31.5-36.5); Mean Corpuscular Volume 87 fL (80-100); Mean Platelet Volume 11.3 fL (9.1-12.4); NEUTROPHILS ABSOLUTE AUTO 5.89 K/mm3 (1.96-9.15); NEUTROPHILS PERCENT AUTO 78 % (41-73); Platelet Count 164 K/mm3 (150-400); RDW Coefficient Variation 14.7 % (11.7-14.2); RDW Standard Deviation 46.6 fL (35.1-46.3); Red Blood Cell Count 5.12 M/mm3 (4.30-5.90); White Blood Cell Count 7.52 K/mm3 (4.00-11.30)
[2023-10-13 03:59] LABS: Anion Gap 6 mmol/L (6-16); Blood Urea Nitrogen 17 mg/dL (8-24); Bun/Creatinine Ratio 39.3 (12.0-20.0); CO2, Blood 25 mmol/L (21-32); Calcium, Blood 8.4 mg/dL (8.5-10.1); Chloride, Blood 110 mmol/L (98-108); Creatinine, Blood 0.43 mg/dL (0.60-1.20); Glomerular Filtration Rate 129 (60-); Glucose, Blood 94 mg/dL (70-99); Phosphorus, Blood 1.9 mg/dL (2.5-4.9); Potassium, Blood 4.1 mmol/L (3.5-5.5); Sodium, Blood 141 mmol/L (136-145)
--- NOTE | 2023-10-13 06:30 | NUR ---
AT 0530 PATIENTS HEART RATE UP TO 170-190 AFIB WITH RVR. PATIENT AWAKE WATCHING TV. VERBALIZED THAT HE COULD FEEL IS HEART GOING FAST. NO C/O PAIN. EKG OBTAINED AND DOCTOR CRYSTAL CALLED AND CARDIZEM 10 MG IV GIVEN HEART RATE DOWN TO 110-120 AFIB/ AFLUTTER. PATIENT CONTINUES TO REST QUIETLY WATCHING TV. BP REMAINING STABLE T/O EVENT.
--- NOTE | 2023-10-13 11:14 | NUR ---
Spiritual Care Visit. Pt. is awake and displays evidence of a mental disability. Parents are present at bedside and welcome my visit. Facilitate conversation with the Pt. through the parents who speak on his behalf. Family asked about Father Steve, and this sample builder shared that he is not currently serving on the floor. Shifted focus of conversation toward the pt. who is pleasant in his disability. Prayed with Pt. Pt. and family verbalize gratitude for the spiritual care visit.
--- NOTE | 2023-10-13 17:55 | NUR ---
SUMMARY PT A/O TO PERSON, PLACE, AND FAMILY. DEVELOPMENTAL DELAY AT BASELINE BUT PT ABLE TO COMMUNICATE NEEDS APPROPRIATELY. ABLE TO FEED SELF WITH SUPERVISION. THIS AM HR WAS AFIB 110-130'S. AFTER CARDIZEM GIVEN BY NOC SHIFT AND COREG PO HR BACK TO SR 80'S-100. PT HAD SOME CP THIS AM BUT SUBSIDED AFTER NORCO AND HR IMPROVED. NO OTHER CHANGES TODAY. PT WILL BE TRANSFERING TO PCU 20 WHEN ROOM IS READY.
--- NOTE | 2023-10-13 18:48 | NUR ---
PT ARRIVED TO UNIT FROM ICU @ APPROXIMATELY 1840 WITH HIS BELONGINGS. PT IS DEVELOPMENTALLY DELAYED. REPORT TAKEN FROM ICU NURSE. PT'S HR SR 100, BP 126/91 (102), PT DENIES CHEST PAIN/PRESSURE. PT ON AND 02 SATURATION ABOVE 92%, HE DENIES SOB. PT DENIES PAIN OF ANY KIND. PT HAS PEREZ CATHETER DRAINING YELLOW URINE WITH GRAVITY. PICC LINE OBSERVED IN RIGHT UPPER ARM. PT HAS 1:1 SITTER IN HIS ROOM. PT CURRENTLY RESTING IN BED AND WATCHING TV. CALL LIGHT WTIN MAURY.
[2023-10-14] VITALS (14 sets, daily range): BP systolic 120–172; BP diastolic 80–129
[2023-10-14 04:54] LABS: BASOPHILS ABSOLUTE AUTO 0.04 K/mm3 (0.00-0.23); BASOPHILS PERCENT AUTO 1 % (0-2); EOSINOPHILS ABSOLUTE AUTO 0.09 K/mm3 (0.00-0.68); EOSINOPHILS PERCENT AUTO 1 % (0-6); Hematocrit 45.6 % (37.0-53.0); Hemoglobin 15.5 g/dL (13.5-17.5); IMMATURE GRAN ABSOLUTE AUTO 0.04 K/mm3 (0.00-0.10); IMMATURE GRAN PERCENT AUTO 1 % (0-1); LYMPHOCYTES ABSOLUTE AUTO 1.54 K/mm3 (0.84-5.20); LYMPHOCYTES PERCENT AUTO 22 % (21-46); MONOCYTES ABSOLUTE AUTO 0.41 K/mm3 (0.16-1.47); MONOCYTES PERCENT AUTO 6 % (4-13); Mean Corpuscular HGB 29.4 pg (26.0-34.0); Mean Corpuscular Volume 86 fL (80-100); Mean Platelet Volume 11.2 fL (9.1-12.4); NEUTROPHILS ABSOLUTE AUTO 4.92 K/mm3 (1.96-9.15); NEUTROPHILS PERCENT AUTO 70 % (41-73); Platelet Count 167 K/mm3 (150-400); RDW Coefficient Variation 14.7 % (11.7-14.2); RDW Standard Deviation 46.1 fL (35.1-46.3); Red Blood Cell Count 5.28 M/mm3 (4.30-5.90); White Blood Cell Count 7.04 K/mm3 (4.00-11.30)
[2023-10-14 05:19] LABS: Albumin/Globulin Ratio 0.8 (0.8-1.8); Bilirubin, Total 0.3 mg/dL (0.1-1.0); Bun/Creatinine Ratio 46.6 (12.0-20.0); Calcium, Blood 8.4 mg/dL (8.5-10.1); Creatinine, Blood 0.39 mg/dL (0.60-1.20); Globulin, Blood 3.9 g/dL (2.2-4.0); Phosphorus, Blood 2.2 mg/dL (2.5-4.9); Potassium, Blood 3.9 mmol/L (3.5-5.5); Total Protein, Blood 6.9 g/dL (6.4-8.2)
--- NOTE | 2023-10-14 05:21 | NUR ---
END OF SHIFT NOTE: NO ACUTE EVENTS OVERNIGHT. PT REMAINS ALERT, ORIENTED TO PERSON AND PLACE. DEVELOPMENTAL DELAY AT BASELINE, COOPERATIVE W/ ALL CARE. PT HAS BEEN LAUGHING AND TALKING W/ STAFF, ABLE TO COMMUNICATE NEEDS. 1:1 SITTER PRESENT FOR MAJORITY OF SHIFT. VSS. HR 80-90'S, SINUS RHYTHM W/ PVC'S. SBP 120-140'S, MAP >65. PT DENIES CHEST PAIN/PRESSURE. SPO2 >93% ON RA, DENIES SOB. AFEBRILE. PICC LINE TO LASHON, FLUSHES WELL BUT NO LONGER DRAWS BLOOD. TOLERATING PO INTAKE WELL, MEDS WHOLE IN APPLESAUCE. PEREZ CATH IN PLACE FOR ACCURATE I&O'S, PATENT AND DRAINING YELLOW URINE TO GRAVITY. NO BM'S. MINIMAL SLEEP OVERNIGHT. PT HAS DENIED PAIN. REPOSITIONED T/O SHIFT & NEEDED FOR PT COMFORT. AWAKE THIS AM WATCHING TELEVISION. NO OTHER NEEDS AT THIS TIME. CALL LIGHT WITHIN REACH, BED IN LOWEST POSITION. WILL REPORT TO ONCOMING RN.
--- NOTE | 2023-10-14 09:17 | NUR ---
PATIENT CONVERTED TO AFLUTTER WITH HR TOUCHING 200'S. THIS RN PLACED CALL TO DR. ORTEGA. NEW ORDERS PLACED. IV CARDIZEM 15 MG GIVEN PER ORDER WITH ADDITIONAL PO COREG. PATIENT HR TRENDING 90-120'S AT THIS TIME. BP STABLE 132/88 (101). Q15 VITALS IN PROGRESS. PATIENT SYMPTOMATIC WITH HIGH HR STATING "I CAN FEEL MY HEART BEATING FAST" AND BECAME FLUSHED. PATIENT NOW LAYING IN BED CALMLY WATCHING TV AND DENIES CHEST PAIN/PRESSURE/PALPITATIONS. CALL LIGHT IN REACH.
--- NOTE | 2023-10-14 09:39 | NUR ---
AM NOTE: PATIENT ALERT TO SELF, PLACE AND FAMILY. UNABLE TO TELL ME DETAILS OF WHY HE IS HERE. DEVELOPMENTAL DELAY AT BASELINE. PATIENT ABLE TO COMMUNICATE NEEDS. USING CALL LIGHT NEEDED. LIMITED ROM IN BOTH UPPER AND LOWER EXTREMITIES. HISTORY OF MUSCULAR DYSTROPHY. ABLE TO FOLLOW COMMANDS AND HELP STAFF TURN IN BED. WHEELCHAIR BOUND AT BASELINE. TELE CURRENTLY SHOWING AFLUTTER WITH HR 110-130'S. SEE PREVIOUS NOTE FOR UPDATE ABOUT RHYTHM CHANGE THIS AM. DR. ORTEGA BY POST RHYTHM CHANGE TO CHECK ON PATIENT, THIS RN AT BEDSIDE DURING PROVIDER ROUNDING. PPP. PATIENT DENIES CHEST PAIN/PRESSURE/PALPITATIONS AT THIS TIME. PICC TO LASHON AND PERIPHERAL IV'S. ABX INFUSING. SCD'S IN PLACE. NO EDEMA NOTED. ON ROOM AIR SATING ABOVE 95%. DENIES SOB/COUGH. EVEN AND UNLABORED RESPIRATIONS. RR 16-20. NO COUGH NOTED. Q4 ORAL CARE AND NEEDED. SUCTION REMAINS AT BEDSIDE. LUNGS SOUNDING CLEAR AND DIM IN BASES. PEREZ CATH IN PLACE DRAINING CLEAR/YELLOW URINE. CATH CARE COMPLETED THIS AM. PLAN FOR BED BATH TODAY. ATTENDS IN PLACE. BOWEL TONES PRESENT. PATIENT EATING WITH ASSISTANCE. SPEECH THERAPY BY THIS AM TO ASSESS. SKIN OVERALL C/D/I. PATIENT DENIES NEEDS. CURRENTLY RELAXING IN BED WATCHING PAW PATROL. ACHS BLOOD SUGARS, TAKING PILLS WHOLE WITH APPLESAUCE. CALL LIGHT IN REACH.
--- NOTE | 2023-10-14 09:45 | NUR ---
TELE ALERTED THIS RN, PATIENT HAS BEEN IN SINUS RHYTHM FOR 5 MIN WITH PVC'S AND PAC'S. HR 100-120'S. BP REMAINS STABLE.
[2023-10-14] MEDS ORDERED: METAMUCIL POWD798 GM PO (13:14)
--- NOTE | 2023-10-14 17:42 | NUR ---
SHIFT SUMMARY: NO ACUTE CHANGES. PATIENT REMAINS IN SR/ST WITH HR 90-110'S. BP STABLE. DENIES CHEST PAIN/PRESSURE. ON ROOM AIR SATING MID 90'S, NO COUGH NOTED THIS SHIFT. PATIENT ABLE TO COMMUNICATE NEEDS USING CALL LIGHT. FAMILY AT BEDSIDE FOR MOST OF SHIFT. PATIENT UP TO BSC, BOWEL MOVEMENT X1. UP IN RECLINER MOST OF SHIFT. PICC LINE AND PEREZ CATH REMOVED. PATIENT ABLE TO USE URINAL POST PEREZ REMOVAL. EATING WNL. PERIPHERAL IV'S SALINE LOCKED. CALL LIGHT IN REACH.
[2023-10-15 03:21] VITALS: BP 120/92
[2023-10-15 04:19] LABS: BASOPHILS ABSOLUTE AUTO 0.03 K/mm3 (0.00-0.23); BASOPHILS PERCENT AUTO 0 % (0-2); EOSINOPHILS ABSOLUTE AUTO 0.04 K/mm3 (0.00-0.68); EOSINOPHILS PERCENT AUTO 0 % (0-6); Hematocrit 45.2 % (37.0-53.0); Hemoglobin 15.3 g/dL (13.5-17.5); IMMATURE GRAN ABSOLUTE AUTO 0.05 K/mm3 (0.00-0.10); IMMATURE GRAN PERCENT AUTO 1 % (0-1); LYMPHOCYTES ABSOLUTE AUTO 2.21 K/mm3 (0.84-5.20); LYMPHOCYTES PERCENT AUTO 23 % (21-46); MONOCYTES ABSOLUTE AUTO 0.68 K/mm3 (0.16-1.47); MONOCYTES PERCENT AUTO 7 % (4-13); Mean Corpuscular HGB 29.4 pg (26.0-34.0); Mean Corpuscular HGB Conc 33.8 g/dL (31.5-36.5); Mean Corpuscular Volume 87 fL (80-100); NEUTROPHILS ABSOLUTE AUTO 6.51 K/mm3 (1.96-9.15); NEUTROPHILS PERCENT AUTO 69 % (41-73); Platelet Count 180 K/mm3 (150-400); RDW Coefficient Variation 14.9 % (11.7-14.2); RDW Standard Deviation 46.7 fL (35.1-46.3); White Blood Cell Count 9.52 K/mm3 (4.00-11.30)
[2023-10-15 04:40] LABS: Albumin, Blood 2.9 g/dL (3.4-5.0); Anion Gap 7 mmol/L (6-16); Blood Urea Nitrogen 20 mg/dL (8-24); Bun/Creatinine Ratio 50.8 (12.0-20.0); CO2, Blood 27 mmol/L (21-32); Calcium, Blood 8.5 mg/dL (8.5-10.1); Chloride, Blood 105 mmol/L (98-108); Creatinine, Blood 0.39 mg/dL (0.60-1.20); Glomerular Filtration Rate 133 (60-); Glucose, Blood 102 mg/dL (70-99); Magnesium, Blood 1.6 mg/dL (1.6-2.4); Phosphorus, Blood 3.4 mg/dL (2.5-4.9); Potassium, Blood 3.7 mmol/L (3.5-5.5); Sodium, Blood 139 mmol/L (136-145)
--- NOTE | 2023-10-15 05:08 | NUR ---
END OF SHIFT NOTE: NO ACUTE EVENTS OVERNIGHT. PT REMAINS ALERT, ORIENTED TO PERSON AND PLACE AT TIMES. DEVELOPMENTAL DELAY AT BASELINE, COOPERATIVE W/ ALL CARE. PT HAS BEEN COMMUNICATING W/ STAFF, ABLE TO MAKE NEEDS KNOWN. CALLS APPROPRIATELY. VSS. HR 90-110'S, SINUS RHYTHM/SINUS TACH W/ PVC'S; HR UP TO 130'S W/ EXERTION BUT DOES NOT SUSTAIN. SBP 120-150'S, MAP >65. PT DENIES CHEST PAIN/PRESSURE. SPO2 >90% ON RA, DENIES SOB. AFEBRILE. TOLERATING PO INTAKE WELL, MEDS WHOLE IN APPLESAUCE. MULTIPLE INCONTINENT VOIDS, 1 CONTINENT VOID W/ 400ML YELLOW URINE OUTPUT. NO BM'S. ATTENDS CHANGED TO KEEP C/D/I. ABLE TO SLEEP MORE OVERNIGHT THAN PREVIOUS NIGHT. PT WITH C/O HEADACHE, MEDICATED W/ NORCO PER EMAR, PT REPORTS RELIEF. TRANSFERRED FROM CHAIR TO BED W/ 2P STAFF ASSIST. REPOSITIONED T/O SHIFT & NEEDED FOR PT COMFORT. ORAL CARE PERFORMED TO SUCTION. NO OTHER NEEDS AT THIS TIME. CALL LIGHT WITHIN REACH, BED IN LOWEST POSITION. WILL REPORT TO ONCOMING RN.
[2023-10-15 07:10] VITALS: BP 150/128
--- NOTE | 2023-10-15 09:08 | NUR ---
AM NOTE: PATIENT ALERT TO SELF, PLACE AND PERSON. TALKING ABOUT HIS 2 DOGS AT HOME THIS MORNING. DENIES NUMBNESS/TINGLING. ABLE TO HELP STAFF MOVE AND TURN IN BED. HISTORY OF MUSCULAR DYSTROPHY WITH STIFFNESS AND OVERALL WEAKNESS. PATIENT ABLE TO STAND AND TRANSFER WITH 2 PERSON ASSIST. DENIES OVERALL PAIN. PERRLA. ON ROOM AIR SATING ABOVE 95%. DENIES SOB/COUGH. EVEN AND UNLABORED RESPIRATIONS. LUNGS SOUNDING CLEAR. TELE READING ST WITH PVC'S HR 100-110'S. BP ELEVATED. PO CARDIZEM, LISINOPRIL AND COREG GIVEN THIS AM PER DR. ORTEGA ORDERS. DENIES CHEST PAIN/PRESSURE/PALPITATIONS. NO SIGNS OF EDEMA. PPP. BOWEL TONES PRESENT. EATING AND FEEDING SELF WNL. ATTENDS IN PLACE. DENIES ABDOMINAL PAIN/NAUSEA. OCCASIONAL INCONTINENCE OF URINE. ACHS BLOOD SUGARS. SKIN OVERALL C/D/I. CALL LIGHT IN REACH. PATIENT FINISHED BREAKFAST AND SITTING IN BED WATCHING CARTOONS. DR. ORTEGA BY, THIS RN AT BEDSIDE FOR PROVIDER ROUNDING. NO NEW ORDERS.
[2023-10-15 11:04] VITALS: BP 127/104
--- NOTE | 2023-10-15 11:16 | NUR ---
Spiritual Care Visit. Pt. is sitting up in a chair, and welcomes my visit. Pt. displays evidence of developmental delay, but is delightfully pleasant. Pts. parents are at bedside. Facilitate an update of pts. progress since being moved from ICU. Engaged personally with Pt. with words of encouragement and hope. Pt. displayed evidence of having a positive outlook, and verbalizes his anticipation for discharge tomorrow. Prayed with Pt. Family verbalized gratitude for the spiritual care visit.
--- NOTE | 2023-10-15 11:59 | NUR ---
DR. ORTEGA BY TO DISCUSS CARE PLAN WITH PATIENT AND PARENTS. THIS RN AT BEDSIDE ORDERS FOR FLORINEF PO TO BE SWITCHED TO BID. ORDERS IN PLACE. WHILE DR. ORTEGA AT BEDSIDE PATIENT HAD 6 BEAT RUN OF VTACH. NO OTHER NEW ORDERS. CALL LIGHT IN REACH. PATIENT SITTING UP IN RECLINER EATING LUNCH.
--- NOTE | 2023-10-15 14:16 | NUR ---
DENTAL HYGENIST IN TO SEE PATIENT AND PROVIDE ORAL CARE.
[2023-10-15 15:07] VITALS: BP 124/88
--- NOTE | 2023-10-15 18:26 | NUR ---
SHIFT SUMMARY: NO ACUTE CHANGES, REMAINS ON ROOM AIR. SEE PREVIOUS NOTES FOR UPDATES. EATING AND VOIDING WNL. DENIES PAINS. USING URINAL TO VOID. UP TO BSC X1 THIS SHIFT, BOWEL MOVEMENT WNL. UP TO RECLINER MOST OF DAY. FAMILY AT BEDSIDE AND UPDATED BY THIS RN AND MD BURDEN. CALL LIGHT IN REACH. PATIENT DENIES NEEDS.
[2023-10-15 19:28] VITALS: BP 139/90
[2023-10-16 00:11] VITALS: BP 116/85
[2023-10-16 04:09] VITALS: BP 119/77
--- NOTE | 2023-10-16 06:08 | NUR ---
END OF SHIFT NOTE: NO ACUTE EVENTS OVERNIGHT. PT REMAINS ALERT, ORIENTED TO PERSON AND PLACE AT TIMES. DEVELOPMENTAL DELAY AT BASELINE, COOPERATIVE W/ ALL CARE. PT HAS BEEN COMMUNICATING W/ STAFF, ABLE TO MAKE NEEDS KNOWN. CALLS APPROPRIATELY. VSS. HR 90-100'S, SINUS RHYTHM/SINUS TACH W/ PVC'S. SBP 110-130'S, MAP >65. PT DENIES CHEST PAIN/PRESSURE. SPO2 >90% ON RA, DENIES SOB. AFEBRILE. TOLERATING PO INTAKE WELL. MULTIPLE LARGE INCONTINENT VOIDS; PT FREQUENTLY ASKS TO ATTEMPT TO VOID BUT NO OUTPUT W/ URINAL. CONDOM CATH PLACED FOR PT COMFORT & ACCURATE I&O S W/ INCONTINENT VOIDS. NO BM S. ATTENDS CHANGED TO KEEP C/D/I. PT DENIES PAIN T/O THE NIGHT. TRANSFERRED FROM CHAIR TO BED W/ 2P STAFF ASSIST. REPOSITIONED T/O SHIFT & NEEDED FOR PT COMFORT. NO OTHER NEEDS AT THIS TIME. CALL LIGHT WITHIN REACH, BED IN LOWEST POSITION. WILL REPORT TO ONCOMING RN.
[2023-10-16 07:30] VITALS: BP 140/95
[2023-10-16 11:02] VITALS: BP 96/83
[2023-10-16] MEDS ORDERED: DILT120 PO (11:48)
[2023-10-16] MEDS ORDERED: FISH OIL 1,0001 EA10 PO (11:49)
[2023-10-16] MEDS ORDERED: VISBIOME 112.51 EACH PO (11:51)
[2023-10-16] MEDS ORDERED: LEVO750 PO (12:01)
--- NOTE | 2023-10-16 12:49 | NUR ---
PT DISCHARGED EDUCATION WENT OVER W/ THE PT'S PARENTS DUE TO COGNITIVE DELAY. ALL QUESTIONS ANSWERED. BELONGINGS SENT W/ THE PT. MEDICATIONS FAXED TO [facility]. IV DISCHARGED. VS STABLE. NO ACUTE EVENTS THIS MORNING.
== END 2023-10-16 12:45 | disposition home or self-care (01) | DRG 871 ==
LOC: ER 21:58 → ICUE 10-11 03:14 → PCU 10-11 03:14 → ICUE 10-11 10:39 → PCU 10-13 18:12
PROVIDERS: Emergency Medicine; Family Medicine; Internal Medicine; ADMIT Internal Medicine
PROC: 0T9B70Z Drainage of Bladder with Drainage Device, Via Natural or Artificial Opening (ICD-10-PCS; principal; 2023-10-11)
PROC: 02HV33Z Insertion of Infusion Device into Superior Vena Cava, Percutaneous Approach (ICD-10-PCS; 2023-10-11)
PROC: 3E03329 Introduction of Other Anti-infective into Peripheral Vein, Percutaneous Approach (ICD-10-PCS; 2023-10-11)
DX: A41.9 Sepsis, unspecified organism (principal); I21.A1 Myocardial infarction type 2; J18.9 Pneumonia, unspecified organism; E27.2 Addisonian crisis; G12.21 Amyotrophic lateral sclerosis; I42.9 Cardiomyopathy, unspecified; I47.10 Supraventricular tachycardia, unspecified; R57.9 Shock, unspecified; I50.22 Chronic systolic (congestive) heart failure; I48.0 Paroxysmal atrial fibrillation; I11.0 Hypertensive heart disease with heart failure; K21.9 Gastro-esophageal reflux disease without esophagitis; R62.50 Unspecified lack of expected normal physiological development in childhood; E78.5 Hyperlipidemia, unspecified; Z90.49 Acquired absence of other specified parts of digestive tract; Z98.890 Other specified postprocedural states; E86.0 Dehydration; Z87.19 Personal history of other diseases of the digestive system; Z66 Do not resuscitate; Z88.0 Allergy status to penicillin; Z88.1 Allergy status to other antibiotic agents; Z79.82 Long term (current) use of aspirin; Z79.891 Long term (current) use of opiate analgesic; Z79.899 Other long term (current) drug therapy; Z11.52 Encounter for screening for COVID-19
CPT/HCPCS: 0241U; 36415; 51702; 51798; 71046; 71260; 74177; 80048; 80053; 80069; 81001; 82803; 82947; 83605; 83735; 84100; 84145; 84484; 85025; 87040; 92526; 92610; 93005; 93010; 96365; 96367; 96375; 97165; 97530; 99285-25; A9270; C8929; J0692; J0696; J1720; J3475; J7030; J7050; J7060; Q9957; Q9967

== ENCOUNTER 2024-04-14 12:35 | Inpatient (IN) | payer OTHER ==
[~2024-04-14] VITALS: Ht 180.3 cm; Wt 74.4 kg
[~2024-04-14 12:35] MED LIST changes: +CARV3.125 PO; +DILT120 PO; +FISH OIL 1,0001 EA10 PO; +LEVO750 PO; +METAMUCIL POWD798 GM PO
[2024-04-14] MEDS ORDERED: NS 1,000 ML IV SCH ×2 (12:55→15:20)
[2024-04-14] MEDS ORDERED: Hydrocortisone Sod Succinate 100 MG Vial IV ONE (13:00)
[2024-04-14] MEDS ORDERED: CARV6.25 PO (13:11)
[2024-04-14] MEDS ORDERED: FENO48 PO (13:14)
[2024-04-14 13:17] LABS: BASOPHILS ABSOLUTE AUTO 0.06 K/mm3 (0.00-0.23); BASOPHILS PERCENT AUTO 1 % (0-2); EOSINOPHILS ABSOLUTE AUTO 0.29 K/mm3 (0.00-0.68); EOSINOPHILS PERCENT AUTO 3 % (0-6); Hematocrit 54.6 % (37.0-53.0); Hemoglobin 17.9 g/dL (13.5-17.5); IMMATURE GRAN ABSOLUTE AUTO 0.05 K/mm3 (0.00-0.10); IMMATURE GRAN PERCENT AUTO 1 % (0-1); LYMPHOCYTES ABSOLUTE AUTO 1.91 K/mm3 (0.84-5.20); LYMPHOCYTES PERCENT AUTO 21 % (21-46); MONOCYTES ABSOLUTE AUTO 0.78 K/mm3 (0.16-1.47); MONOCYTES PERCENT AUTO 8 % (4-13); Mean Corpuscular HGB 29.8 pg (26.0-34.0); Mean Corpuscular HGB Conc 32.8 g/dL (31.5-36.5); Mean Corpuscular Volume 91 fL (80-100); NEUTROPHILS ABSOLUTE AUTO 6.22 K/mm3 (1.96-9.15); NEUTROPHILS PERCENT AUTO 67 % (41-73); RDW Coefficient Variation 14.2 % (11.7-14.2); RDW Standard Deviation 47.4 fL (35.1-46.3); Red Blood Cell Count 6.01 M/mm3 (4.30-5.90); White Blood Cell Count 9.31 K/mm3 (4.00-11.30)
[2024-04-14 13:25] LABS: Magnesium, Blood 1.4 mg/dL (1.6-2.4)
[2024-04-14 13:26] LABS: Albumin, Blood 4.1 g/dL (3.4-5.0); Albumin/Globulin Ratio 0.8 (0.8-1.8); Bilirubin, Total 0.6 mg/dL (0.1-1.0); Calcium, Blood 9.8 mg/dL (8.5-10.1); Creatinine, Blood 0.5 mg/dL (0.60-1.20); Globulin, Blood 4.9 g/dL (2.2-4.0); Potassium, Blood 4.3 mmol/L (3.5-5.5)
[2024-04-14] MEDS ORDERED: Mag Sulfate 1 GM/D5% 100ML 100 ML IV ONE (13:45)
[2024-04-14] MEDS ORDERED: Hydrocortisone Sod Succinate 100 MG Vial IV SCH (18:00)
[2024-04-14] MEDS ORDERED: Acetaminophen 325 MG TABLET PO PRN (18:20)
[2024-04-14 19:40] VITALS: BP 122/94
[2024-04-15 04:59] VITALS: BP 128/88
[2024-04-15 05:30] LABS: BASOPHILS ABSOLUTE AUTO 0.03 K/mm3 (0.00-0.23); BASOPHILS PERCENT AUTO 0 % (0-2); EOSINOPHILS ABSOLUTE AUTO 0.03 K/mm3 (0.00-0.68); EOSINOPHILS PERCENT AUTO 0 % (0-6); Hematocrit 45.7 % (37.0-53.0); Hemoglobin 15.4 g/dL (13.5-17.5); IMMATURE GRAN ABSOLUTE AUTO 0.03 K/mm3 (0.00-0.10); IMMATURE GRAN PERCENT AUTO 0 % (0-1); LYMPHOCYTES ABSOLUTE AUTO 1.17 K/mm3 (0.84-5.20); LYMPHOCYTES PERCENT AUTO 15 % (21-46); MONOCYTES ABSOLUTE AUTO 0.35 K/mm3 (0.16-1.47); MONOCYTES PERCENT AUTO 4 % (4-13); Mean Corpuscular HGB 30.4 pg (26.0-34.0); Mean Corpuscular HGB Conc 33.7 g/dL (31.5-36.5); Mean Corpuscular Volume 90 fL (80-100); Mean Platelet Volume 11.9 fL (9.1-12.4); NEUTROPHILS ABSOLUTE AUTO 6.26 K/mm3 (1.96-9.15); NEUTROPHILS PERCENT AUTO 80 % (41-73); Platelet Count 172 K/mm3 (150-400); RDW Coefficient Variation 14.1 % (11.7-14.2); RDW Standard Deviation 46.5 fL (35.1-46.3); Red Blood Cell Count 5.07 M/mm3 (4.30-5.90); White Blood Cell Count 7.87 K/mm3 (4.00-11.30)
[2024-04-15 05:36] LABS: Magnesium, Blood 1.8 mg/dL (1.6-2.4)
[2024-04-15 06:03] LABS: Albumin, Blood 3.2 g/dL (3.4-5.0); Albumin/Globulin Ratio 0.8 (0.8-1.8); Bilirubin, Total 0.7 mg/dL (0.1-1.0); Bun/Creatinine Ratio 51.9 (12.0-20.0); Calcium, Blood 8.4 mg/dL (8.5-10.1); Creatinine, Blood 0.41 mg/dL (0.60-1.20); Globulin, Blood 3.8 g/dL (2.2-4.0); Phosphorus, Blood 2.5 mg/dL (2.5-4.9)
--- NOTE | 2024-04-15 06:43 | NUR ---
SHIFT SUMMARY PT ARRIVED FROM ED AT ABOUT 2000. PARENTS AT BEDSIDE TO ANSWER QUESTIONS AND UNTIL PT WAS SETTLED IN ROOM. PT DEVOLPMENTALY DELAYED WITH GOGNITIVE ABILITY OF A 7yo BUT COOPERATIVE AND PLEASANT. THIS NURSE AND A SECOND NURSE ATTEMPTED TO PLACE A LARGER HELGA IV FOR PE STUDY WITHOUT SUCCESS. SANCHEZ, FROM 2ND FLOOR, WAS ABLE TO COME AND PLACE IV AT ABOUT 0100. PT PREFERS SNEHAL CHANNEL OR CARTOONS. BED IN LOWEST POSITION AND CALL LIGHT IN REACH.
[2024-04-15 07:15] VITALS: BP 134/94
[2024-04-15] MEDS ORDERED: Carvedilol 6.25 MG Tab PO SCH (08:00)
[2024-04-15] MEDS ORDERED: dilTIAZem HCL 120 MG CAP.CD PO SCH (09:00)
--- NOTE | 2024-04-15 09:56 | NUR ---
"Spiritual care | Pt./Family request Pt. is awake and welcomes my visit. No family are present at bedside. Pt. is very pleasant but repsonds in one word sentences. This superintendent electric power has seen this pt. in the past, and has noted that the Pt. displays evidence of limited mentation. Pt. welcomed prayer. Prayed with Pt. When this superintendent electric power offered to return, the pt. was agreeable to it."
[2024-04-15] MEDS ORDERED: Polyethylene Glycol 3350 17 gm PO SCH (12:10)
[2024-04-15 15:21] VITALS: BP 147/100
--- NOTE | 2024-04-15 16:33 | NUR ---
SHIFT SUMMARY MR MCCOLLUM IS ABLE TO ANSWER BASIC QUESTIONS. HE APPEARS TO BE COMFORTABLE, RESTING IN BED WATCHING CARTOONS AND INTERATING WITH HIS PARENTS WHO ARE VISITING. CT PE DONE THIS AM. ON TELE IN SR/ST. HR ELEVATED WHEN IN CT SCAN, IN 90S 120 WHEN RESTING. BED LOW, CALL LIGHT IN REACH.
[2024-04-15 19:11] VITALS: BP 126/103
[2024-04-16] MEDS ORDERED: Hydrocortisone Sod Succinate 100 MG Vial IV SCH
[2024-04-16 03:25] VITALS: BP 112/98
--- NOTE | 2024-04-16 05:06 | NUR ---
IMPORT EXPORT AGENT SUMMARY NO ACUTE CHANGES. PT GIVEN MIRALAX PRESCRIBED. PT REQUESTED XFER TO BSC. PT UNABLE TO BARE WEIGHT W/O LEG BRACES. XFERED PT TO BEDPAN. NEEDS ASSESSED AND REGULAR ROUNDING Q2 HRS T/O THE NIGHT. PT ABLE TO MAKE NEEDS KNOWN WHEN PROMPTED. CALL LIGHT IN REACH.
[2024-04-16 05:54] LABS: BASOPHILS ABSOLUTE AUTO 0.05 K/mm3 (0.00-0.23); BASOPHILS PERCENT AUTO 1 % (0-2); EOSINOPHILS ABSOLUTE AUTO 0.06 K/mm3 (0.00-0.68); EOSINOPHILS PERCENT AUTO 1 % (0-6); Hematocrit 48.3 % (37.0-53.0); Hemoglobin 16.1 g/dL (13.5-17.5); IMMATURE GRAN ABSOLUTE AUTO 0.03 K/mm3 (0.00-0.10); IMMATURE GRAN PERCENT AUTO 0 % (0-1); LYMPHOCYTES ABSOLUTE AUTO 1.38 K/mm3 (0.84-5.20); LYMPHOCYTES PERCENT AUTO 13 % (21-46); MONOCYTES ABSOLUTE AUTO 0.66 K/mm3 (0.16-1.47); MONOCYTES PERCENT AUTO 6 % (4-13); Mean Corpuscular HGB 30.1 pg (26.0-34.0); Mean Corpuscular HGB Conc 33.3 g/dL (31.5-36.5); Mean Corpuscular Volume 90 fL (80-100); Mean Platelet Volume 11.5 fL (9.1-12.4); NEUTROPHILS ABSOLUTE AUTO 8.22 K/mm3 (1.96-9.15); NEUTROPHILS PERCENT AUTO 79 % (41-73); Platelet Count 171 K/mm3 (150-400); RDW Standard Deviation 46.3 fL (35.1-46.3); Red Blood Cell Count 5.34 M/mm3 (4.30-5.90)
[2024-04-16 06:12] LABS: Albumin, Blood 3.5 g/dL (3.4-5.0); Anion Gap 10 mmol/L (3-11); Blood Urea Nitrogen 18 mg/dL (8-24); Bun/Creatinine Ratio 42.3 (12.0-20.0); CO2, Blood 24 mmol/L (21-32); Chloride, Blood 109 mmol/L (98-108); Creatinine, Blood 0.43 mg/dL (0.60-1.20); Glomerular Filtration Rate 129 (60-); Glucose, Blood 87 mg/dL (70-99); Phosphorus, Blood 2.4 mg/dL (2.5-4.9); Sodium, Blood 139 mmol/L (136-145)
[2024-04-16 07:57] VITALS: BP 133/94
[2024-04-16] MEDS ORDERED: Lisinopril 20 MG Tab PO SCH (09:00)
[2024-04-16] MEDS ORDERED: Acetaminophen325 M1 PO (12:36)
[2024-04-16] MEDS ORDERED: MIRALAX1714 PO (12:37)
--- NOTE | 2024-04-16 13:18 | NUR ---
MR GOSS DENIED PAIN, UP TO BSC WITH DAD WITH GOOD UOP AND LOOSE STOOL THIS AM. PARENTS AT BEDSIDE SAID THEY ARE HAPPY TO TAKE HIM HOME AND FEEL THAT HE IS READY. THEY VERBALISED UNDERSTANDING OF WRITTEN AND VERBAL DISCHARGE INSTRUCTIONS. PIV X 2 AND TELEMETRY REMOVED AND PT DISCHARGED VIZ W/C WITH TICKET MARKER.
== END 2024-04-16 13:11 | disposition home or self-care (01) | DRG 643 ==
LOC: ER 12:35 → MEDS 12:36 → ENPENDDIS 04-16 11:29 → MEDS 04-16 13:11
PROVIDERS: Student in an Organized Health Care Education/Training Program; ADMIT Family Medicine
DX: E27.1 Primary adrenocortical insufficiency (principal); I21.A1 Myocardial infarction type 2; I42.9 Cardiomyopathy, unspecified; I50.22 Chronic systolic (congestive) heart failure; Z66 Do not resuscitate; R00.0 Tachycardia, unspecified; I48.0 Paroxysmal atrial fibrillation; E78.5 Hyperlipidemia, unspecified; K21.9 Gastro-esophageal reflux disease without esophagitis; I11.0 Hypertensive heart disease with heart failure; Z88.0 Allergy status to penicillin; Z79.82 Long term (current) use of aspirin; Z88.1 Allergy status to other antibiotic agents; Z79.899 Other long term (current) drug therapy; Z79.2 Long term (current) use of antibiotics; Z87.19 Personal history of other diseases of the digestive system; Z98.890 Other specified postprocedural states; Z90.49 Acquired absence of other specified parts of digestive tract
CPT/HCPCS: 36415; 71046; 71260; 80053; 80069; 82533; 83690; 83735; 83880; 84100; 84145; 84484; 85025; 85379; 93005; 93010; 96361; 96365; 96375; 96376; 99285-25; A9270; G0378; J1720; J3475; J7030; Q9967

== ENCOUNTER 2024-07-20 20:56 | Emergency (ER) | payer OTHER ==
[~2024-07-20] VITALS: Ht 180.3 cm; Wt 74.8 kg
[~2024-07-20 20:56] MED LIST changes: +Acetaminophen325 M1 PO; +CARV6.25 PO; +DEPO-TESTO200 MG/11 IM; +FENO48 PO; +HYDROCODONE-AC1 EA19 PO; +MIRALAX1714 PO
[2024-07-20] MEDS ORDERED: NS 1,000 ML IV SCH (21:25)
[2024-07-20 21:39] LABS: BASOPHILS ABSOLUTE AUTO 0.07 K/mm3 (0.00-0.23); BASOPHILS PERCENT AUTO 1 % (0-2); EOSINOPHILS ABSOLUTE AUTO 0.23 K/mm3 (0.00-0.68); EOSINOPHILS PERCENT AUTO 2 % (0-6); Hematocrit 48.7 % (37.0-53.0); Hemoglobin 16.3 g/dL (13.5-17.5); IMMATURE GRAN ABSOLUTE AUTO 0.05 K/mm3 (0.00-0.10); IMMATURE GRAN PERCENT AUTO 1 % (0-1); LYMPHOCYTES ABSOLUTE AUTO 1.21 K/mm3 (0.84-5.20); LYMPHOCYTES PERCENT AUTO 11 % (21-46); MONOCYTES ABSOLUTE AUTO 0.64 K/mm3 (0.16-1.47); MONOCYTES PERCENT AUTO 6 % (4-13); Mean Corpuscular HGB 30.4 pg (26.0-34.0); Mean Corpuscular HGB Conc 33.5 g/dL (31.5-36.5); Mean Corpuscular Volume 91 fL (80-100); Mean Platelet Volume 11.2 fL (9.1-12.4); NEUTROPHILS ABSOLUTE AUTO 8.46 K/mm3 (1.96-9.15); NEUTROPHILS PERCENT AUTO 79 % (41-73); Platelet Count 184 K/mm3 (150-400); RDW Standard Deviation 46.9 fL (35.1-46.3); Red Blood Cell Count 5.36 M/mm3 (4.30-5.90); White Blood Cell Count 10.66 K/mm3 (4.00-11.30)
[2024-07-20 21:58] LABS: Albumin, Blood 3.8 g/dL (3.4-5.0); Albumin/Globulin Ratio 0.9 (0.8-1.8); Bilirubin, Total 0.5 mg/dL (0.1-1.0); Bun/Creatinine Ratio 32.6 (12.0-20.0); Calcium, Blood 8.8 mg/dL (8.5-10.1); Creatinine, Blood 0.64 mg/dL (0.60-1.20); Globulin, Blood 4.1 g/dL (2.2-4.0); Potassium, Blood 4.2 mmol/L (3.5-5.5); Total Protein, Blood 7.9 g/dL (6.4-8.2)
[2024-07-21] MEDS ORDERED: NS 1,000 ML IV SCH (01:30)
[2024-07-21] MEDS ORDERED: Doxycycline Hyclate 100 MG in Dextrose 5% 250 ML IV ONE (01:30)
[2024-07-21 03:45] VITALS: BP 122/87
== END 2024-07-21 04:03 | disposition home or self-care (01) ==
LOC: ER 20:56
PROVIDERS: Physician Assistant
DX: J18.9 Pneumonia, unspecified organism (principal); E86.0 Dehydration; D70.9 Neutropenia, unspecified; E27.1 Primary adrenocortical insufficiency; I10 Essential (primary) hypertension; I48.0 Paroxysmal atrial fibrillation; E78.5 Hyperlipidemia, unspecified; K21.9 Gastro-esophageal reflux disease without esophagitis; Z88.0 Allergy status to penicillin; Z88.1 Allergy status to other antibiotic agents; Z79.899 Other long term (current) drug therapy; Z79.82 Long term (current) use of aspirin
CPT/HCPCS: 71046; 80053; 85025; 96365; 99283-25; J7030; J7060

== ENCOUNTER 2024-07-21 15:40 | Inpatient (IN) | payer OTHER ==
[~2024-07-21] VITALS: Ht 180.3 cm; Wt 74.8 kg
[2024-07-21 18:26] LABS: BASOPHILS ABSOLUTE AUTO 0.04 K/mm3 (0.00-0.23); BASOPHILS PERCENT AUTO 0 % (0-2); EOSINOPHILS ABSOLUTE AUTO 0.14 K/mm3 (0.00-0.68); EOSINOPHILS PERCENT AUTO 1 % (0-6); Hematocrit 49.9 % (37.0-53.0); Hemoglobin 16.5 g/dL (13.5-17.5); IMMATURE GRAN ABSOLUTE AUTO 0.03 K/mm3 (0.00-0.10); IMMATURE GRAN PERCENT AUTO 0 % (0-1); LYMPHOCYTES ABSOLUTE AUTO 1.12 K/mm3 (0.84-5.20); LYMPHOCYTES PERCENT AUTO 10 % (21-46); MONOCYTES PERCENT AUTO 5 % (4-13); Mean Corpuscular HGB 30.2 pg (26.0-34.0); Mean Corpuscular HGB Conc 33.1 g/dL (31.5-36.5); Mean Corpuscular Volume 91 fL (80-100); Mean Platelet Volume 11.1 fL (9.1-12.4); NEUTROPHILS ABSOLUTE AUTO 9.18 K/mm3 (1.96-9.15); NEUTROPHILS PERCENT AUTO 83 % (41-73); Platelet Count 198 K/mm3 (150-400); RDW Coefficient Variation 13.9 % (11.7-14.2); RDW Standard Deviation 46.7 fL (35.1-46.3); Red Blood Cell Count 5.47 M/mm3 (4.30-5.90); White Blood Cell Count 11.01 K/mm3 (4.00-11.30)
[2024-07-21] MEDS ORDERED: FLU VACC TS2024-25(6MOS UP)/PF 45 MCG/0.5 ML SYRINGE IM SCH (18:35)
[2024-07-21 18:49] LABS: Albumin, Blood 3.9 g/dL (3.4-5.0); Bun/Creatinine Ratio 37.3 (12.0-20.0); Calcium, Blood 8.8 mg/dL (8.5-10.1); Creatinine, Blood 0.51 mg/dL (0.60-1.20); Globulin, Blood 4.1 g/dL (2.2-4.0); Potassium, Blood 4.2 mmol/L (3.5-5.5)
[2024-07-21] MEDS ORDERED: Hydrocortisone Sod Succinate 100 MG Vial IV ONE (19:00)
[2024-07-21] MEDS ORDERED: Hydrocortisone Sod Succinate 100 MG Vial IV SCH (19:00)
[2024-07-21 21:38] VITALS: BP 141/107
[2024-07-22 05:52] VITALS: BP 120/85
--- NOTE | 2024-07-22 07:15 | NUR ---
SHIFT SUMMARY: Pt is admitted for PNA and is a DNR. is alert to self but able to make some needs known. ADLs have been 1p. Stated that he had some left flank pain that was helped with some positioning.
[2024-07-22 07:39] VITALS: BP 132/97
[2024-07-22] MEDS ORDERED: Enoxaparin 40 MG/0.4 ML SYR SC SCH (09:00)
[2024-07-22 12:33] LABS: Source, Urine Straight Cath
[2024-07-22 12:44] LABS: Appearance, Urine Clear (Clear); Bilirubin, Urine Neg (Neg); Blood, Urine 2+ (Neg); Color, Urine Yellow (P-Yellow); Glucose Qualitative, Urine Neg (Neg); Ketones, Urine 2+ (Neg); Leukocyte Esterase, Urine Neg (Neg); Nitrite, Urine Neg (Neg); Protein, Urine 2+ (Neg); Urobilinogen, Urine NORM (Normal)
--- NOTE | 2024-07-22 13:13 | NUR ---
DISCHAGE SUMMARY: PT DISCHARGED AT 1310. IV REMOVED AND EDUCATION WENT OVER WITH PATIENT. INSTRUCTED TO [facility] PCP AND FOLLOW UP WITH THEM IN 3 DAYS AND TO CALL IF SYMPTOMS WORSEN. PT AOX4 AND EXCITED TO LEAVE. GETTING HOME VIA THE BUS. INDEPENDENTLY DRESSED SELF AND AMBULATED IN TO WHEELCHAIR. COOPERATIVE AND FOLLOWS DEMANDS. DISCHARGED WITH NO MEDICATIONS.
[2024-07-22 13:45] LABS: Bacteria Rare /hpf; Squamous Epithelial Cells Rare /hpf (Few); White Blood Cells, Urine 0-2 /hpf (0-5)
[2024-07-22 13:46] LABS: Hyaline Casts 0-2 /lpf (0-2)
[2024-07-22 14:21] LABS: Adenovirus Not Detected (NOT DETECT); Coronavirus 229E Not Detected (NOT DETECT); Coronavirus HKU1 Not Detected (NOT DETECT); Coronavirus NL63 Not Detected (NOT DETECT); Coronavirus OC43 Not Detected (NOT DETECT)
[2024-07-22 14:22] LABS: Bordetella pertussis Not Detected (NOT DETECT); Chlamydophila pneumoniae Not Detected (NOT DETECT); Human Metapneumovirus Not Detected (NOT DETECT); Human Rhinovirus/Enterovirus Detected (NOT DETECT); Influenza A/2009-H1 Not Detected (NOT DETECT); Influenza A/H1 Not Detected (NOT DETECT); Influenza A/H3 Not Detected (NOT DETECT); Influenza B Not Detected (NOT DETECT); Mycoplasma pneumoniae Not Detected (NOT DETECT); Parainfluenza Virus 1 Not Detected (NOT DETECT); Parainfluenza Virus 2 Not Detected (NOT DETECT); Parainfluenza Virus 3 Not Detected (NOT DETECT); Parainfluenza Virus 4 Not Detected (NOT DETECT); Respiratory Syncytial Virus Not Detected (NOT DETECT); SARS-Cov-2 (COVID-19), BioFire Not Detected (NOT DETECT)
[2024-07-22 15:29] VITALS: BP 102/72
[2024-07-22] MEDS ORDERED: HYDROcodone 5-APAP 325 TAB PO PRN (17:00)
[2024-07-22] MEDS ORDERED: Acetaminophen 325 MG TABLET PO PRN (17:05)
[2024-07-22] MEDS ORDERED: Fenofibrate 67 MG Cap PO SCH (17:30)
--- NOTE | 2024-07-22 17:45 | NUR ---
SHIFT SUMMARY: PT AOX4. SLIGHTLY INCONTINENT. PT GIVEN URINAL AND WAS ABLE TO GO WITH URINAL PLACED. ORDERED BLOOD CULTURES, URINE CULTURES WITH STRAIGHT CATH, AND A PCR SINUS TEST FOR RESPIRATORY INFECTION. STRAIGHT CATH ATTEMPTED BUT PROSTATE BLOCKING ENTRANCE. PT ABLE TO GO INTO URINAL AFTER SOME DELAY AND SAMPLE CAPTURED FROM THERE. PT COMPLIANT AND FOLLOWED DIRECTIONS THROUGHOUT THE PROCEDURE. SINUS SWAB ALSO COLLECTED WITHOUT INCIDENT. MALE PUREWICK APPLIED TO PT WITH GOOD RESULTS. PT CURRENTLY RESTING, BED IN LOWEST POSITION, AND CALL LIGHT IN REACH. PT TESTED POSITIVE FOR RHINO VIRUS AND PLACED ON DROPLET PRECAUTIONS. CONTINUING CARE.
[2024-07-22] MEDS ORDERED: Hydrocortisone Sod Succinate 100 MG Vial IV SCH (18:00)
--- NOTE | 2024-07-22 18:27 | NUR ---
THIS CERTIFIED MEDICAL RECORDS CODER HAS REVIEWED AND AGREES WITH ALL NOTES AND ASSESSMENTS BY SREE GROVES.
[2024-07-22] MEDS ORDERED: Furosemide 10 MG / ML 2ML Vial IV SCH (19:00)
[2024-07-22 19:52] VITALS: BP 113/81
[2024-07-22] MEDS ORDERED: Omeprazole 20 MG CapCR PO SCH (20:00)
[2024-07-23 05:17] VITALS: BP 129/95
--- NOTE | 2024-07-23 06:15 | NUR ---
SHIFT SUMMARY PT A&OX3-4 AND SHOWS SIGNS OF DEVELOPMENTAL DELAYS. ANSWERS QUESTIONS APPROPRIATELY AND MAKES NEEDS KNOWN. SCHEDULED MEDICATIONS ADMINISTERED. VSS, NO COMPLAINTS OF CP/PRESSURE OR SOB. PT SPENT MOST OF SHIFT RESTING IN BED WITH RESPIRATIONS EVEN AND UNLABORED. NO ACUTE EVENTS AT THIS TIME. PT REPOSITIONED Q2HRS. PT LEFT IN A POSITION OF SAFETY WITH FALL PRECAUTIONS IN PLACE AND CALL LIGHT IN REACH.
[2024-07-23 07:44] VITALS: BP 119/84
--- NOTE | 2024-07-23 08:10 | NUR ---
CRITICAL LAB- BLOOD CULTURES WITH GRAM + COCCI CLUSTERS. DR. VAZQUEZ INFORMED AND NEW ORDERS TO START 1G ROCEPHIN IV DAILY STARTING NOW RECIEVED.
[2024-07-23] MEDS ORDERED: NS 1,000 ML BAG IR PRN (08:25)
[2024-07-23] MEDS ORDERED: NS 250 ML IV PRN (08:30)
[2024-07-23] MEDS ORDERED: Fludrocortisone Acetate 0.1 MG Tab PO SCH (09:00)
[2024-07-23] MEDS ORDERED: CefTRIAXone Sodium 1,000 MG in NS 100 ML IV SCH (09:00)
[2024-07-23] MEDS ORDERED: dilTIAZem HCL 120 MG CAP.CD PO SCH (09:00)
[2024-07-23] MEDS ORDERED: Aspirin 81 MG TabEC PO SCH (09:00)
[2024-07-23 15:37] VITALS: BP 109/80
--- NOTE | 2024-07-23 18:29 | NUR ---
SHIFT SUMMARY PATIENT A/OX2 THIS SHIFT, WHEN ASKED ORIENTATION QUESTIONS PATIENT STATES "OH MY DAD KNOWS THAT STUFF". PATIENT REPOSITIONED Q2 HOURS. MOTHER, PORFIRIO, AT BEDSIDE MOST OF SHIFT. PATIENT DENIES PAIN. BLOOD CULTURES SHOW GRAM + COCCI CLUSTERS AND MD ORDERED ROCEPHIN DAILY. ECHOCARDIOGRAM COMPLETED TODAY. MALE PUREWICK IN PLACE, NO OTHER CONCERNS AT THIS TIME.
[2024-07-23 20:09] VITALS: BP 109/87
[2024-07-24 03:41] VITALS: BP 108/79
[2024-07-24 05:47] LABS: BASOPHILS ABSOLUTE AUTO 0.03 K/mm3 (0.00-0.23); BASOPHILS PERCENT AUTO 0 % (0-2); EOSINOPHILS ABSOLUTE AUTO 0.07 K/mm3 (0.00-0.68); EOSINOPHILS PERCENT AUTO 1 % (0-6); Hematocrit 46.4 % (37.0-53.0); Hemoglobin 15.5 g/dL (13.5-17.5); IMMATURE GRAN ABSOLUTE AUTO 0.03 K/mm3 (0.00-0.10); IMMATURE GRAN PERCENT AUTO 0 % (0-1); LYMPHOCYTES ABSOLUTE AUTO 1.54 K/mm3 (0.84-5.20); LYMPHOCYTES PERCENT AUTO 20 % (21-46); MONOCYTES ABSOLUTE AUTO 0.68 K/mm3 (0.16-1.47); MONOCYTES PERCENT AUTO 9 % (4-13); Mean Corpuscular HGB 30.1 pg (26.0-34.0); Mean Corpuscular HGB Conc 33.4 g/dL (31.5-36.5); Mean Corpuscular Volume 90 fL (80-100); Mean Platelet Volume 11.1 fL (9.1-12.4); NEUTROPHILS ABSOLUTE AUTO 5.52 K/mm3 (1.96-9.15); NEUTROPHILS PERCENT AUTO 70 % (41-73); Platelet Count 176 K/mm3 (150-400); RDW Standard Deviation 45.6 fL (35.1-46.3); Red Blood Cell Count 5.15 M/mm3 (4.30-5.90); White Blood Cell Count 7.87 K/mm3 (4.00-11.30)
[2024-07-24 06:16] LABS: Albumin, Blood 3.3 g/dL (3.4-5.0); Albumin/Globulin Ratio 0.9 (0.8-1.8); Bilirubin, Total 0.6 mg/dL (0.1-1.0); Bun/Creatinine Ratio 53.6 (12.0-20.0); Calcium, Blood 9.2 mg/dL (8.5-10.1); Creatinine, Blood 0.56 mg/dL (0.60-1.20); Globulin, Blood 3.8 g/dL (2.2-4.0); Potassium, Blood 3.6 mmol/L (3.5-5.5); Total Protein, Blood 7.1 g/dL (6.4-8.2)
[2024-07-24 07:12] VITALS: BP 125/91
--- NOTE | 2024-07-24 13:04 | NUR ---
DISCHARGE NOTE PATIENT A/OX2 THIS MORNING. PATIENT'S MOTHER, PORFIRIO, AT BEDSIDE WHEN DISCHARGE ORDER RECIEVED. DISCHARGE PAPERWORK COMPLETED AND DISCUSSED WITH PATIENT AND MOTHER.IV REMOVED PRIOR TO DISCHARGE, PATIENT ASSISTED TO WHEELCHAIR BY [facility] STAFF AND WHEELED TO MOTHER'S VEHICLE. PATIENT AND FAMILY WITH NO QUESTIONS OR CONCERNS AT TIME OF DISCHARGE. MOTHER AGREES TO HAVE PATIENT ATTEND ALL FOLLOW UP APPOINTMENTS.
== END 2024-07-24 12:58 | disposition home or self-care (01) | DRG 291 ==
LOC: ER 15:40 → MEDS 18:33 → ERHOLD 18:33 → MEDS 21:24
PROVIDERS: Internal Medicine; Physician Assistant; ADMIT Family Medicine
DX: I11.0 Hypertensive heart disease with heart failure (principal); I50.23 Acute on chronic systolic (congestive) heart failure; J18.9 Pneumonia, unspecified organism; E27.1 Primary adrenocortical insufficiency; J98.11 Atelectasis; I48.20 Chronic atrial fibrillation, unspecified; J06.9 Acute upper respiratory infection, unspecified; I42.0 Dilated cardiomyopathy; I25.10 Atherosclerotic heart disease of native coronary artery without angina pectoris; G71.01 Duchenne or Becker muscular dystrophy; E78.5 Hyperlipidemia, unspecified; I48.0 Paroxysmal atrial fibrillation; E83.119 Hemochromatosis, unspecified; K21.9 Gastro-esophageal reflux disease without esophagitis; B97.89 Other viral agents as the cause of diseases classified elsewhere; Z90.49 Acquired absence of other specified parts of digestive tract; Z88.0 Allergy status to penicillin; Z88.1 Allergy status to other antibiotic agents; Z79.82 Long term (current) use of aspirin; Z79.899 Other long term (current) drug therapy; R07.9 Chest pain, unspecified; E86.0 Dehydration; D70.9 Neutropenia, unspecified
CPT/HCPCS: 0202U; 36415; 71046; 80053; 81001; 83605; 83690; 83880; 84145; 84484; 85025; 87040; 87077; 93005; 93010; 96361; 96365; 96374; 99283-25; 99284; 99285-25; A9270; C8929; J0696; J1650; J1720; J1940; J7030; J7050; J7060; Q9957

== ENCOUNTER 2024-08-04 22:44 | Emergency (ER) | payer OTHER ==
[~2024-08-04] VITALS: Ht 180.3 cm; Wt 77.1 kg
[2024-08-05 01:04] LABS: BASOPHILS ABSOLUTE AUTO 0.05 K/mm3 (0.00-0.23); BASOPHILS PERCENT AUTO 1 % (0-2); EOSINOPHILS ABSOLUTE AUTO 0.19 K/mm3 (0.00-0.68); EOSINOPHILS PERCENT AUTO 2 % (0-6); Hematocrit 50.5 % (37.0-53.0); Hemoglobin 16.4 g/dL (13.5-17.5); IMMATURE GRAN ABSOLUTE AUTO 0.06 K/mm3 (0.00-0.10); IMMATURE GRAN PERCENT AUTO 1 % (0-1); LYMPHOCYTES ABSOLUTE AUTO 1.43 K/mm3 (0.84-5.20); LYMPHOCYTES PERCENT AUTO 14 % (21-46); MONOCYTES ABSOLUTE AUTO 0.71 K/mm3 (0.16-1.47); MONOCYTES PERCENT AUTO 7 % (4-13); Mean Corpuscular HGB 29.9 pg (26.0-34.0); Mean Corpuscular HGB Conc 32.5 g/dL (31.5-36.5); Mean Corpuscular Volume 92 fL (80-100); Mean Platelet Volume 11.6 fL (9.1-12.4); NEUTROPHILS ABSOLUTE AUTO 8.14 K/mm3 (1.96-9.15); NEUTROPHILS PERCENT AUTO 77 % (41-73); Platelet Count 200 K/mm3 (150-400); RDW Coefficient Variation 14.1 % (11.7-14.2); RDW Standard Deviation 47.8 fL (35.1-46.3); Red Blood Cell Count 5.48 M/mm3 (4.30-5.90); White Blood Cell Count 10.58 K/mm3 (4.00-11.30)
[2024-08-05 01:19] LABS: Albumin, Blood 3.5 g/dL (3.4-5.0); Albumin/Globulin Ratio 0.7 (0.8-1.8); Bilirubin, Total 0.4 mg/dL (0.1-1.0); Bun/Creatinine Ratio 46.5 (12.0-20.0); Calcium, Blood 8.8 mg/dL (8.5-10.1); Creatinine, Blood 0.5 mg/dL (0.60-1.20); Globulin, Blood 4.7 g/dL (2.2-4.0); Potassium, Blood 4.2 mmol/L (3.5-5.5); Total Protein, Blood 8.2 g/dL (6.4-8.2)
[2024-08-05 01:20] LABS: International Normalized Ratio 1.02; Prothrombin Time Results 10.9 Sec (9.7-11.5)
[2024-08-05] MEDS ORDERED: NS 1,000 ML IV SCH (03:00)
[2024-08-05] MEDS ORDERED: Hydrocortisone Sod Succinate 100 MG Vial IV ONE (03:05)
[2024-08-05] MEDS ORDERED: Acetaminophen 500 MG Tab PO ONE (03:05)
[2024-08-05] MEDS ORDERED: LevoFLOXacin 750 MG/D5W 150ML 150 ML IV ONE (03:05)
[2024-08-05] MEDS ORDERED: LEVO750 PO (03:06)
[2024-08-05 05:30] VITALS: BP 128/98
== END 2024-08-05 06:02 | disposition home or self-care (01) ==
LOC: ER 22:44
PROVIDERS: Emergency Medicine
DX: J18.9 Pneumonia, unspecified organism (principal); E86.0 Dehydration; Z88.1 Allergy status to other antibiotic agents; Z88.0 Allergy status to penicillin; Z79.899 Other long term (current) drug therapy; Z79.82 Long term (current) use of aspirin; I10 Essential (primary) hypertension; E78.5 Hyperlipidemia, unspecified; K21.9 Gastro-esophageal reflux disease without esophagitis
CPT/HCPCS: 71045; 80053; 83605; 84484; 85025; 85610; 87040; 93005; 93010; 96365; 96375; 99285-25; A9270; J1720; J1956; J7030

== ENCOUNTER 2025-03-11 00:25 | Observation (INO) | payer OTHER ==
[~2025-03-11] VITALS: Ht 177.8 cm; Wt 67.4 kg
[~2025-03-11 00:25] MED LIST changes: +AMIODARONE HCL200 MG PO; +Amiodarone HCl200 MG PO; +CLOP75 PO; +ENTRESTO 24 MG1 EACH PO; +JARDIANCE10 MG PO; +LISI20 PO; +Nitrostat0.4 MG SL; -Prinivil10 MG PO
[2025-03-11 01:09] LABS: BASOPHILS ABSOLUTE AUTO 0.05 K/mm3 (0.00-0.23); BASOPHILS PERCENT AUTO 1 % (0-2); EOSINOPHILS ABSOLUTE AUTO 0.11 K/mm3 (0.00-0.68); EOSINOPHILS PERCENT AUTO 2 % (0-6); Hematocrit 52.4 % (37.0-53.0); Hemoglobin 16.8 g/dL (13.5-17.5); IMMATURE GRAN ABSOLUTE AUTO 0.06 K/mm3 (0.00-0.10); IMMATURE GRAN PERCENT AUTO 1 % (0-1); LYMPHOCYTES ABSOLUTE AUTO 1.22 K/mm3 (0.84-5.20); LYMPHOCYTES PERCENT AUTO 17 % (21-46); MONOCYTES ABSOLUTE AUTO 0.66 K/mm3 (0.16-1.47); MONOCYTES PERCENT AUTO 9 % (4-13); Mean Corpuscular HGB 28.9 pg (26.0-34.0); Mean Corpuscular HGB Conc 32.1 g/dL (31.5-36.5); Mean Corpuscular Volume 90 fL (80-100); Mean Platelet Volume 11.2 fL (9.1-12.4); NEUTROPHILS PERCENT AUTO 71 % (41-73); Platelet Count 223 K/mm3 (150-400); RDW Coefficient Variation 15.2 % (11.7-14.2); RDW Standard Deviation 49.4 fL (35.1-46.3); Red Blood Cell Count 5.81 M/mm3 (4.30-5.90)
[2025-03-11 01:28] LABS: Albumin, Blood 3.4 g/dL (3.4-5.0); Albumin/Globulin Ratio 0.8 (0.8-1.8); Bilirubin, Total 0.4 mg/dL (0.1-1.0); Bun/Creatinine Ratio 59.5 (12.0-20.0); Calcium, Blood 8.7 mg/dL (8.5-10.1); Creatinine, Blood 0.5 mg/dL (0.60-1.20); Potassium, Blood 4.9 mmol/L (3.5-5.5); Total Protein, Blood 7.4 g/dL (6.4-8.2)
[2025-03-11] MEDS ORDERED: FLUDROCORTISON0.1 M1 PO (01:47)
[2025-03-11] MEDS ORDERED: HYDCOR10 PO (01:47)
[2025-03-11] MEDS ORDERED: JARDIANCE10 MG PO (01:48)
[2025-03-11] MEDS ORDERED: CLOP75 PO (01:48)
[2025-03-11] MEDS ORDERED: ENTRESTO 24 MG1 EAC3 PO (01:49)
[2025-03-11] MEDS ORDERED: METO50ER PO (01:49)
[2025-03-11] MEDS ORDERED: FENOFIBRATE50 MG PO (01:50)
[2025-03-11] MEDS ORDERED: Amiodarone HCl200 MG PO (01:50)
[2025-03-11] MEDS ORDERED: NITR.4SL SL (01:50)
[2025-03-11] MEDS ORDERED: OMEGA 3 PO (01:53)
[2025-03-11] MEDS ORDERED: DEPO-TESTO200 MG/18 IM (01:54)
[2025-03-11] MEDS ORDERED: ASPI81CH PO (01:55)
[2025-03-11] MEDS ORDERED: OMEP20ER PO (02:03)
[2025-03-11] MEDS ORDERED: Norco 5-325 Ta1 EACH PO (02:04)
[2025-03-11] MEDS ORDERED: Hydrocortisone Sod Succinate 100 MG Vial IV ONE (02:50)
[2025-03-11] MEDS ORDERED: HYDROmorphone HCl/Pf 1MG SYR IV ONE (02:50)
[2025-03-11] MEDS ORDERED: Heparin Sodium,Porcine 5,000 UNIT/0.5 ML SDV SC SCH (09:00)
[2025-03-11 09:53] VITALS: BP 139/104
--- NOTE | 2025-03-11 10:57 | NUR ---
Pt arrived via gurney from ED, a/ox1-2, tends to answer yes to questions, child like, follows commands, lungs are clear dim t/o, resp even and unlabored, no cough noted, hrr, piv site is clear and patent, btx4, abd round slightly firm, voids without diff, skin has pink right foot, no open areas, heels are pretty pink, protective dressings applied, red inbetween knees where he had them crossed, all red areas are blanchable, legs are contracted, richard, call light in reach.
[2025-03-11 11:28] VITALS: BP 113/83
[2025-03-11] MEDS ORDERED: Nitroglycerin 0.4 MG SUBL SL PRN (12:00)
[2025-03-11] MEDS ORDERED: HYDROcodone 5-APAP 325 TAB PO PRN (12:05)
[2025-03-11] MEDS ORDERED: Hydrocortisone 10 MG Tab PO SCH (14:00)
[2025-03-11] MEDS ORDERED: Pantoprazole Sodium 40 MG Tab PO SCH (16:30)
[2025-03-11 16:44] VITALS: BP 102/81
[2025-03-11] MEDS ORDERED: Fenofibrate 67 MG Cap PO SCH (17:00)
--- NOTE | 2025-03-11 19:02 | NUR ---
no acute changes this shift, no complaints of pain, call light in reach.
[2025-03-11 19:59] VITALS: BP 116/80
[2025-03-11] MEDS ORDERED: Docosahexanoic Acid/EPA 1,000 MG CAP PO SCH (21:00)
[2025-03-11] MEDS ORDERED: Sacubitril/Valsartan 24 MG-26 MG Tab PO SCH (21:00)
[2025-03-11 22:47] VITALS: BP 106/76
--- NOTE | 2025-03-12 04:49 | NUR ---
SHIFT SUMM: PT HAS BEEN RELAXING MOST OF THE SHIFT AND WATCHING TV. PT IS BEDRTEST AND INCONT TO URINE AND STOOL.PT SOMETIMES USES THE URINAL WHEN PROMPTED TO. PT IS DEV.DELAYED AND SOMETIMES HARD TO UNDERSTAND. PT IS COOPERATIVE WITH CARE AND TAKES MEDS WWW. PT IS ON TELE NSR AT 85 AND CURRENTLY ON RA. PT WILL NOT ALWAYS HIT CALL LIGHT TO MAKE NEEDS KNOWN. BED ALARM SET FOR SAFETY.
[2025-03-12 05:24] VITALS: BP 110/79
[2025-03-12 07:19] VITALS: BP 117/91
[2025-03-12] MEDS ORDERED: Fludrocortisone Acetate 0.1 MG Tab PO SCH (09:00)
[2025-03-12] MEDS ORDERED: Clopidogrel Bisulfate 75 MG Tab PO SCH (09:00)
[2025-03-12] MEDS ORDERED: Amiodarone HCl 200 MG Tab PO SCH (09:00)
[2025-03-12] MEDS ORDERED: Empagliflozin 10 MG TAB PO SCH (09:00)
[2025-03-12] MEDS ORDERED: Metoprolol Succinate 50 MG TABCR PO SCH (09:00)
[2025-03-12] MEDS ORDERED: Aspirin 81 MG Chew PO SCH (09:00)
[2025-03-12 11:28] VITALS: BP 83/65
[2025-03-12 11:33] VITALS: BP 89/63
[2025-03-12] MEDS ORDERED: PANT40 PO (11:36)
--- NOTE | 2025-03-12 12:37 | NUR ---
SHIFT/DISCHARGE SUMMARY: PATIENT A/O TO SELF, MUMBLED SPEECH AND DEVELOPMENTAL DELAYED. PATIENT DENIES CP/PRESSURE, SOB, N/V AND DIZZINESS. PATIENT ON TELE, SR HR IN THE 70'S BPM c OCCASIONAL PVC. PATIENT SBP SOFT IN THE HIGH 80'S c A MAP OF 70-72. DR. STALLINGS NOTIFIED, NO NEW ORDER. PATIENT RECEIVED SCHEDULED MEDS PER EMAR. PATIENT HAS GREAT APPETITE, CONT/INCON OF BLADDER, ATTENDS PLACED AND CHANGED PRN. PIV'S DC'D BY SREE PRIEST. PATIENT DISCHARGE HOME. DISCHARGE INSTRUCTIONS PACKET GIVEN TO PATIENT BY ELIZABETH PRIEST. ZAYDA EDUCATED PATIENT AND PARENTS AT BEDSIDE REGARDING ADMITITNG DX'S, S/S, TX AND TO F/U c PCP. THEY VERBALIZED UNDERSTANDING AND NO FURTHER QUESTIONS. ALL PERSONAL BELONGINGS WERE SENT HOME c THE PATIENT. PATIENT LEFT THE ROOM AT 1216 AND TRANSPORTED VIA WHEELCHAIR BY COLOR ARTIST TO PATIENT ENTRANCE.
== END 2025-03-12 12:16 | disposition home or self-care (01) ==
LOC: ER 00:25 → ERHOLD 00:26 → MEDS 09:46
PROVIDERS: Student in an Organized Health Care Education/Training Program; ADMIT Internal Medicine
DX: R07.9 Chest pain, unspecified (principal); I11.0 Hypertensive heart disease with heart failure; I50.22 Chronic systolic (congestive) heart failure; E27.1 Primary adrenocortical insufficiency; I48.0 Paroxysmal atrial fibrillation; K21.9 Gastro-esophageal reflux disease without esophagitis; G71.01 Duchenne or Becker muscular dystrophy; I42.9 Cardiomyopathy, unspecified; E29.1 Testicular hypofunction; Z66 Do not resuscitate; Z79.02 Long term (current) use of antithrombotics/antiplatelets; Z79.82 Long term (current) use of aspirin; Z79.84 Long term (current) use of oral hypoglycemic drugs; Z79.890 Hormone replacement therapy; Z79.899 Other long term (current) drug therapy; Z88.0 Allergy status to penicillin; Z88.1 Allergy status to other antibiotic agents
CPT/HCPCS: 36415; 71046; 80053; 83880; 84484; 85025; 93005; 93010; 96372; 96374; 96375; 99285-25; A9270; G0378; J1171; J1644; J1720

== ENCOUNTER 2025-05-05 00:22 | Emergency (ER) | payer OTHER ==
[~2025-05-05] VITALS: Ht 177.8 cm; Wt 74.8 kg
[~2025-05-05 00:22] MED LIST changes: +ASPI81CH PO; +DEPO-TESTO200 MG/18 IM; +ENTRESTO 24 MG1 EAC3 PO; +FENOFIBRATE50 MG PO; +FLUDROCORTISON0.1 M1 PO; +HYOS.125 PO; +NITR.4SL SL; +Norco 5-325 Ta1 EACH PO; +OMEGA 3 PO; +PANT40 PO
[2025-05-05 02:14] LABS: Alanine Aminotransfer (ALT/SGP 85.0 U/L (12-78); Albumin, Blood 3.7 g/dL (3.4-5.0); Albumin/Globulin Ratio 0.9 (0.8-1.8); Anion Gap 5.0 mmol/L (3-11); Aspartate Aminotrans (AST/SGOT 55.0 U/L (12-37); Bilirubin, Total 0.3 mg/dL (0.1-1.0); Blood Urea Nitrogen 30.0 mg/dL (8-24); CO2, Blood 29.0 mmol/L (21-32); Calcium, Blood 8.4 mg/dL (8.5-10.1); Chloride, Blood 107.0 mmol/L (98-108); Creatinine, Blood 0.56 mg/dL (0.60-1.20); Globulin, Blood 4.0 g/dL (2.2-4.0); Glucose, Blood 104.0 mg/dL (70-99); Potassium, Blood 4.3 mmol/L (3.5-5.5); Sodium, Blood 137.0 mmol/L (136-145); Total Protein, Blood 7.7 g/dL (6.4-8.2)
[2025-05-05 02:16] LABS: BASOPHILS ABSOLUTE AUTO 0.04 K/mm3 (0.00-0.23); BASOPHILS PERCENT AUTO 1 % (0-2); EOSINOPHILS ABSOLUTE AUTO 0.03 K/mm3 (0.00-0.68); EOSINOPHILS PERCENT AUTO 0 % (0-6); Hematocrit 51.9 % (37.0-53.0); Hemoglobin 16.6 g/dL (13.5-17.5); IMMATURE GRAN ABSOLUTE AUTO 0.05 K/mm3 (0.00-0.10); IMMATURE GRAN PERCENT AUTO 1 % (0-1); LYMPHOCYTES ABSOLUTE AUTO 1.02 K/mm3 (0.84-5.20); LYMPHOCYTES PERCENT AUTO 12 % (21-46); MONOCYTES ABSOLUTE AUTO 0.56 K/mm3 (0.16-1.47); MONOCYTES PERCENT AUTO 6 % (4-13); Mean Corpuscular HGB Conc 32.0 g/dL (31.5-36.5); Mean Corpuscular Volume 92 fL (80-100); NEUTROPHILS ABSOLUTE AUTO 7.06 K/mm3 (1.96-9.15); NEUTROPHILS PERCENT AUTO 81 % (41-73); NRBC ABSOLUTE 0.00 K/mm3 (0.00-0.02); NRBC Auto 0.0 /100 WBC (0.0-0.2); Platelet Count 198 K/mm3 (150-400); RDW Coefficient Variation 15.2 % (11.7-14.2); RDW Standard Deviation 51.7 fL (35.1-46.3)
[2025-05-05 05:12] LABS: Source, Urine Clean Catch
[2025-05-05 05:21] LABS: Bilirubin, Urine Neg (Neg); Color, Urine Yellow (P-Yellow); Glucose Qualitative, Urine 4+ (Neg); Ketones, Urine Neg (Neg); Leukocyte Esterase, Urine Neg (Neg); Protein, Urine 2+ (Neg); Specific Gravity, Urine 1.015 (1.003-1.022); Urobilinogen, Urine NORM (Normal)
[2025-05-05 05:37] LABS: Red Blood Cells, Urine 50-100 /hpf (0-2); White Blood Cells, Urine 0-2 /hpf (0-5)
[2025-05-05 06:00] VITALS: BP 104/78
== END 2025-05-05 06:00 | disposition home or self-care (01) ==
LOC: ER 00:22
PROVIDERS: Student in an Organized Health Care Education/Training Program
DX: R10.30 Lower abdominal pain, unspecified (principal); K21.9 Gastro-esophageal reflux disease without esophagitis; I10 Essential (primary) hypertension; E78.5 Hyperlipidemia, unspecified; Z79.899 Other long term (current) drug therapy; Z79.02 Long term (current) use of antithrombotics/antiplatelets; Z79.82 Long term (current) use of aspirin; Z88.0 Allergy status to penicillin; Z88.1 Allergy status to other antibiotic agents
CPT/HCPCS: 51701; 80053; 81001; 83690; 85025; 99284

== ENCOUNTER → 2025-05-16 | Outpatient (CLI) | payer OTHER ==
[~2025-05-16] MED LIST changes: +DIGOX125 MC1 PO
[2025-05-16 09:02] LABS: Source, Urine Clean Catch
[2025-05-16 09:26] LABS: Bilirubin, Urine Neg (Neg); Color, Urine Yellow (P-Yellow); Glucose Qualitative, Urine 3+ (Normal); Ketones, Urine Neg (Neg); Leukocyte Esterase, Urine Neg (Neg); Protein, Urine Trace (Neg); Specific Gravity, Urine 1.015 (1.003-1.022); Urobilinogen, Urine NORM (Normal)
[2025-05-16 09:27] LABS: White Blood Cells, Urine 0-2 /hpf (0-5)
== END ==
LOC: LAB 03:00 → LAB SHORT 03:00
PROVIDERS: Internal Medicine Endocrinology, Diabetes & Metabolism
DX: R31.29 Other microscopic hematuria (principal)
CPT/HCPCS: 81001

== ENCOUNTER 2025-05-18 23:44 | Inpatient (IN) | payer OTHER ==
[~2025-05-18] VITALS: Ht 170.2 cm; Wt 64.2 kg
[~2025-05-18 23:44] MED LIST changes: -DIGOX125 MC1 PO
[2025-05-19] VITALS (7 sets, daily range): BP systolic 91–120; BP diastolic 61–91
[2025-05-19 00:11] LABS: BASOPHILS ABSOLUTE AUTO 0.03 K/mm3 (0.00-0.23); BASOPHILS PERCENT AUTO 0 % (0-2); EOSINOPHILS ABSOLUTE AUTO 0.03 K/mm3 (0.00-0.68); EOSINOPHILS PERCENT AUTO 0 % (0-6); Hematocrit 45.7 % (37.0-53.0); Hemoglobin 14.5 g/dL (13.5-17.5); IMMATURE GRAN ABSOLUTE AUTO 0.05 K/mm3 (0.00-0.10); IMMATURE GRAN PERCENT AUTO 1 % (0-1); LYMPHOCYTES ABSOLUTE AUTO 0.94 K/mm3 (0.84-5.20); LYMPHOCYTES PERCENT AUTO 12 % (21-46); MONOCYTES ABSOLUTE AUTO 0.65 K/mm3 (0.16-1.47); MONOCYTES PERCENT AUTO 9 % (4-13); Mean Corpuscular HGB Conc 31.7 g/dL (31.5-36.5); Mean Corpuscular Volume 91 fL (80-100); NEUTROPHILS ABSOLUTE AUTO 5.90 K/mm3 (1.96-9.15); NEUTROPHILS PERCENT AUTO 78 % (41-73); NRBC ABSOLUTE 0.00 K/mm3 (0.00-0.02); NRBC Auto 0.0 /100 WBC (0.0-0.2); Platelet Count 180 K/mm3 (150-400); RDW Coefficient Variation 15.6 % (11.7-14.2); RDW Standard Deviation 51.8 fL (35.1-46.3)
[2025-05-19 00:24] LABS: Alanine Aminotransfer (ALT/SGP 70.0 U/L (12-78); Albumin, Blood 2.8 g/dL (3.4-5.0); Albumin/Globulin Ratio 0.8 (0.8-1.8); Anion Gap 9.0 mmol/L (3-11); Aspartate Aminotrans (AST/SGOT 39.0 U/L (12-37); Bilirubin, Total 0.3 mg/dL (0.1-1.0); Blood Urea Nitrogen 25.0 mg/dL (8-24); CO2, Blood 23.0 mmol/L (21-32); Calcium, Blood 7.5 mg/dL (8.5-10.1); Chloride, Blood 112.0 mmol/L (98-108); Creatinine, Blood 0.63 mg/dL (0.60-1.20); Globulin, Blood 3.4 g/dL (2.2-4.0); Glucose, Blood 123.0 mg/dL (70-99); Potassium, Blood 3.9 mmol/L (3.5-5.5); Sodium, Blood 140.0 mmol/L (136-145); Total Protein, Blood 6.2 g/dL (6.4-8.2)
[2025-05-19 06:25] LABS: BASOPHILS ABSOLUTE AUTO 0.03 K/mm3 (0.00-0.23); BASOPHILS PERCENT AUTO 0 % (0-2); EOSINOPHILS ABSOLUTE AUTO 0.04 K/mm3 (0.00-0.68); EOSINOPHILS PERCENT AUTO 1 % (0-6); Hematocrit 44.2 % (37.0-53.0); Hemoglobin 14.4 g/dL (13.5-17.5); IMMATURE GRAN ABSOLUTE AUTO 0.04 K/mm3 (0.00-0.10); IMMATURE GRAN PERCENT AUTO 1 % (0-1); LYMPHOCYTES ABSOLUTE AUTO 1.67 K/mm3 (0.84-5.20); LYMPHOCYTES PERCENT AUTO 23 % (21-46); MONOCYTES ABSOLUTE AUTO 0.57 K/mm3 (0.16-1.47); MONOCYTES PERCENT AUTO 8 % (4-13); Mean Corpuscular HGB Conc 32.6 g/dL (31.5-36.5); Mean Corpuscular Volume 90 fL (80-100); NEUTROPHILS ABSOLUTE AUTO 4.92 K/mm3 (1.96-9.15); NEUTROPHILS PERCENT AUTO 68 % (41-73); NRBC ABSOLUTE 0.00 K/mm3 (0.00-0.02); NRBC Auto 0.0 /100 WBC (0.0-0.2); Platelet Count 183 K/mm3 (150-400); RDW Coefficient Variation 15.8 % (11.7-14.2); RDW Standard Deviation 51.1 fL (35.1-46.3)
--- NOTE | 2025-05-19 06:47 | NUR ---
SHIFT SUMMARY PT ADMITTED FROM ER THIS EARLY AM, PARENTS PRESENT AT ADMISSION TO HELP ANSER QUESTIONS, THEN LEFT TO GET SOME SLEEP. TELE SHOWING SR, CONTINUOUS PULSE OX IN PLACE. PUREWICK PLACED FOR URGENCY. PICTURE TAKEN OF LEFT LATERAL ANKLE WOUND. PT RESTING IN BED. CALL LIGHT WITHIN REACH, BED IN LOWEST POSITION, SIDERAILS UP X3.
[2025-05-19 06:51] LABS: Alanine Aminotransfer (ALT/SGP 73.0 U/L (12-78); Albumin, Blood 3.0 g/dL (3.4-5.0); Albumin/Globulin Ratio 0.8 (0.8-1.8); Anion Gap 10.0 mmol/L (3-11); Aspartate Aminotrans (AST/SGOT 39.0 U/L (12-37); Bilirubin, Total 0.4 mg/dL (0.1-1.0); Blood Urea Nitrogen 24.0 mg/dL (8-24); CO2, Blood 24.0 mmol/L (21-32); Calcium, Blood 8.4 mg/dL (8.5-10.1); Chloride, Blood 109.0 mmol/L (98-108); Creatinine, Blood 0.57 mg/dL (0.60-1.20); Globulin, Blood 3.8 g/dL (2.2-4.0); Glucose, Blood 67.0 mg/dL (70-99); Magnesium, Blood 1.8 mg/dL (1.6-2.4); Potassium, Blood 3.8 mmol/L (3.5-5.5); Sodium, Blood 139.0 mmol/L (136-145); Total Protein, Blood 6.8 g/dL (6.4-8.2)
[2025-05-19] MEDS ORDERED: Fenofibrate 67 MG Cap PO SCH (09:00)
[2025-05-19] MEDS ORDERED: Enoxaparin 40 MG/0.4 ML SYR SC SCH (09:00)
--- NOTE | 2025-05-19 11:43 | NUR ---
LOW BP- BP ON RECHECK AFTER AM MEDS. SBP FOR AM MEDS WAS 105 HELD METOPROLOL FOR LOW BP PARAMETERS SAY HOLD FOR SBP <105. ALL OTHER MEDS ADMINISTERED PER THEIR PARAMETERS. CALLED DR CHEN TO LET HIM KNOW WAS WITHOUT THE METOPROLOL ADMINISTRATION. HE IS AWARE.
--- NOTE | 2025-05-19 15:40 | NUR ---
CALLED DR CHEN- PT WAS NOTED TO HAVE BLOOD IN HIS URINE IN THE [facility]. PT FATHER STATES THE PT KNOWS WHEN HE HAS TO GO. SPOKE TO DR CHEN ANS THE BLOOD IN THE URINE IS ABNORMAL. MIRIAM CHA'D, NNEW ORDER PLACED FOR UA. SPOKE ABOUT LASIX BUT PT BP IS A LITTLE SOFT FOR THAT TODAY. (91/61 AT LAST VITALS). HE WILL REEVALUATE IN THE MORNING.
--- NOTE | 2025-05-19 16:26 | NUR ---
SHIFT SUMMARY- PT HAS HAD NO ACUTE CHANGE T/O THE DAY. UA ORDERED AWAITNG SAMPLE. PLAN IS FOR LASIX POSSIBLY TOMORROW, IF THE PT BP WILL TOLLERATE. PT HAD AN ECHO 5 MONTHS AGO EF 15-22% THEN. THEY MAY REPEAT THE ECHO BUT THERE IS NO ORDER AT THIS TIME. PT HAS MUSCULAR DYSTROPHY AND A DEVELOPMENTAL DELAY, PER FAMILY EMOTIONAL AGE IS APPROXIMATELY 7 YEARS OLD. PT IS ALERT AND ORIENTED TO SELF AND FAMILY. HE IS COOPERATIVE WITH CARE AND CAN MAKE HIS NEEDS KNOWN. WILL PASS ON TO NIGHT RN IN BEDSIDE REPORT.
[2025-05-19] MEDS ORDERED: HYDROcodone 5-APAP 325 TAB PO SCH (21:00)
[2025-05-20] VITALS (11 sets, daily range): BP systolic 100–128; BP diastolic 62–92
--- NOTE | 2025-05-20 05:19 | NUR ---
PT A&O TO SELF ONLY, USES CALL SYSTEM APPRPRIATELY. PT VS WNL, MAX ASSIST FOR ADL'S AND MOBILITY. VOIDED X1 PER URINAL, URINE STILL REMAINS RED TINGED. PT REQUIRES ASSIST WITH PO INTAKE. TELE NSR IN 80-90'S. DENIES PAIN UNLESS YOU TOUCH LEFT ANKLE WHICH HAS A WOUND, WHICH HE CAME FROM HOME WITH. MEPILEX PLACED ON WOUND. PT NOTED TO HAVE SOME APNEA DURING SLEEP 68-74% PLACED ON O2 2L/NC, THIS WAS HELPFUL. PT PLACED IN FOOT BOOT TO HELP WITH PRESSURE. PLAN TO D/C BACK TO DAD'S.
[2025-05-20] MEDS ORDERED: Furosemide 10 MG / ML 2ML Vial IV ONE (07:45)
[2025-05-20 09:29] LABS: Source, Urine Clean Catch
[2025-05-20 09:39] LABS: Bilirubin, Urine Neg (Neg); Color, Urine Yellow (P-Yellow); Glucose Qualitative, Urine 4+ (Neg); Ketones, Urine 1+ (Neg); Leukocyte Esterase, Urine Neg (Neg); Protein, Urine 1+ (Neg); Specific Gravity, Urine 1.015 (1.003-1.022); Urobilinogen, Urine NORM (Normal)
[2025-05-20 09:50] LABS: Red Blood Cells, Urine 25-50 /hpf (0-2); White Blood Cells, Urine 0-2 /hpf (0-5)
--- NOTE | 2025-05-20 10:58 | NUR ---
CALLED DR CHEN- PT HEART RYTHM CHANGED TO AFIB AT A RATE OF 139 JUST PRIOR TO TOWER CRANE OPERATOR ARRIVAL. RECIEVED A OT DOSE OF PO METOPROLOL TARTRATE NOW. TOWER CRANE OPERATOR WILL RETURN ONCE RATE IS REDUCED.
[2025-05-20 11:07] LABS: BASOPHILS ABSOLUTE AUTO 0.04 K/mm3 (0.00-0.23); BASOPHILS PERCENT AUTO 1 % (0-2); EOSINOPHILS ABSOLUTE AUTO 0.09 K/mm3 (0.00-0.68); EOSINOPHILS PERCENT AUTO 1 % (0-6); Hematocrit 48.7 % (37.0-53.0); Hemoglobin 15.6 g/dL (13.5-17.5); IMMATURE GRAN ABSOLUTE AUTO 0.05 K/mm3 (0.00-0.10); IMMATURE GRAN PERCENT AUTO 1 % (0-1); LYMPHOCYTES ABSOLUTE AUTO 1.65 K/mm3 (0.84-5.20); LYMPHOCYTES PERCENT AUTO 26 % (21-46); MONOCYTES ABSOLUTE AUTO 0.44 K/mm3 (0.16-1.47); MONOCYTES PERCENT AUTO 7 % (4-13); Mean Corpuscular HGB Conc 32.0 g/dL (31.5-36.5); Mean Corpuscular Volume 91 fL (80-100); NEUTROPHILS ABSOLUTE AUTO 4.13 K/mm3 (1.96-9.15); NEUTROPHILS PERCENT AUTO 65 % (41-73); NRBC ABSOLUTE 0.00 K/mm3 (0.00-0.02); NRBC Auto 0.0 /100 WBC (0.0-0.2); Platelet Count 189 K/mm3 (150-400); RDW Coefficient Variation 15.9 % (11.7-14.2); RDW Standard Deviation 52.0 fL (35.1-46.3)
[2025-05-20 11:16] LABS: Anion Gap 9.0 mmol/L (3-11); Blood Urea Nitrogen 26.0 mg/dL (8-24); CO2, Blood 28.0 mmol/L (21-32); Calcium, Blood 8.6 mg/dL (8.5-10.1); Chloride, Blood 106.0 mmol/L (98-108); Creatinine, Blood 0.54 mg/dL (0.60-1.20); Glucose, Blood 175.0 mg/dL (70-99); Potassium, Blood 3.6 mmol/L (3.5-5.5); Sodium, Blood 139.0 mmol/L (136-145)
--- NOTE | 2025-05-20 11:17 | NUR ---
LEFT A MESSAGE FOR DR CHEN- PT IS DESCRIBING A HEAVY PRESSURE CHEST PAIN. WHEN SPEAKING TO DR EARLIER HE ASKED ABOUT CP, AT THAT TIME THE PT HAD NOT C/O ANY CP. VSS, BETABLOCKER GIVEN, PT ON O2 3L VIA NC, NO OVERT S&S OF DISTRESS NOTED.
[2025-05-20] MEDS ORDERED: Digoxin 0.5 MG in NS 8 ML IV ONE (12:50)
[2025-05-20] MEDS ORDERED: NS 250 ML IV PRN (13:10)
--- NOTE | 2025-05-20 13:39 | NUR ---
CALLED DR BRIGHT- PER TELE PT HR HAS TRENDED DOWN OVER THE LAST HOUR, CURRENT HR IS 90. SPOKE TO HE IS AWARE. ORDER RECIEVED TO PROCEED AND GIVE 0.5MG IV DIGOXIN BUT HOLD THE OTHER TWO DOSES. HE WILL REASSESS TO SEE IF THE PT REQUIRES ADDITIONAL LOADING
--- NOTE | 2025-05-20 14:57 | NUR ---
COMPLETED THE DIGOXIN DOSE ADMINISTRATION- PT STATES THAT HE IS FEELING BETTER AND HIS HEART RATE IS "GOING DOWN" PT STATES AFTER THE INFUSION THAT HIS CHEST PAIN IS GONE. "NO PAIN!" HE SHOUTS. HE IS MUCH MORE INVIGORATED AT THIS TIME. VSS AT THE TIME OF COMPLETION OF MED.
--- NOTE | 2025-05-20 16:22 | NUR ---
SHIFT SUMMARY- PT ALERT AND ORIENTED TO SELF. PARENTS ARE VERY INVOLVED IN HIS CARE. PT IS LIFTED BY HIS FATHER AT HOME FFOR ALL TRANSFERS. PT HEART FLIPPED INTO AFIB EARLIIER TODAY DR CHEN CAME TO SEE THEM AND SPOKE TO THE FAMILY, THEY REQUESTED CARDIOLOGY CONSULT. PT HAD AN ECHO TODAY AND A SINGLE DOSE OF IV DIGOXIN, CURRENT HR IS 72 SINUS RYTHM. PT RECIEVED A BED BATH WITH A FULL LINNEN CHANGE AFTER THE ECHO. PT CURRENTLY IN BED, CALL LIGHT IN REACH NO S&S OF DISTRESS NOTED. NIGHT OXEMITRY STUDY ORDERED FOR TONIGHT. RT IS AWARE. CONT BIOX IN PLACE.
--- NOTE | 2025-05-20 16:40 | NUR ---
RECIEVED A CALL FROM TELE PT HR HAS DROPPED DOWN TO 61-[address] BRIGHT JUST SPOKE TO HER ABOUT THIS PT.
--- NOTE | 2025-05-20 17:24 | NUR ---
RECIEVED A CALL FROM TELE - PT HR IS NOW DROPPING TO 55. HR 64-55 ON AVERAGE, HE HAS BEEN TRENDING DOWN SINCE HE RECIEVED THE DIGOXIN. CALLED DR BRIGHT AND RECIEVED AN ORDER TO CANCEL THE TWO ADDITIONAL DOSES OF DIGOXIN IV AND HOLD TONIGHTS METOPROLOL DOSE.
[2025-05-20] MEDS ORDERED: Digoxin 0.25 MG in NS 4 ML IV SCH (18:00)
[2025-05-21 04:42] VITALS: BP 125/84
--- NOTE | 2025-05-21 04:56 | NUR ---
PT A&O TO SELF ONLY, VS WNL, PERFORMED SLEEP STUDY TONIGHT, WHICH RT SAYS HE FAILED. O2 ON AT 2L/NC THIS AM. INCONTINENT AT TIMES, WILL OCCASIONALY ASK FOR URINAL, WORE PURWIK THIS NIGHT. TELE NSR THROUGHOUT SHIFT. CAN USE CALL SYSTEM. LT ANKLE WITH MEPILEX ON. PLAN TO CONTINUE TX FOR CHF, LIVES WITH FATHER.
[2025-05-21 07:15] VITALS: BP 124/95
[2025-05-21 08:58] LABS: BASOPHILS ABSOLUTE AUTO 0.03 K/mm3 (0.00-0.23); BASOPHILS PERCENT AUTO 1 % (0-2); EOSINOPHILS ABSOLUTE AUTO 0.08 K/mm3 (0.00-0.68); EOSINOPHILS PERCENT AUTO 1 % (0-6); Hematocrit 50.5 % (37.0-53.0); Hemoglobin 15.9 g/dL (13.5-17.5); IMMATURE GRAN ABSOLUTE AUTO 0.04 K/mm3 (0.00-0.10); IMMATURE GRAN PERCENT AUTO 1 % (0-1); LYMPHOCYTES ABSOLUTE AUTO 1.46 K/mm3 (0.84-5.20); LYMPHOCYTES PERCENT AUTO 23 % (21-46); MONOCYTES ABSOLUTE AUTO 0.56 K/mm3 (0.16-1.47); MONOCYTES PERCENT AUTO 9 % (4-13); Mean Corpuscular HGB Conc 31.5 g/dL (31.5-36.5); Mean Corpuscular Volume 90 fL (80-100); NEUTROPHILS ABSOLUTE AUTO 4.29 K/mm3 (1.96-9.15); NEUTROPHILS PERCENT AUTO 66 % (41-73); NRBC ABSOLUTE 0.00 K/mm3 (0.00-0.02); NRBC Auto 0.0 /100 WBC (0.0-0.2); Platelet Count 174 K/mm3 (150-400); RDW Coefficient Variation 15.7 % (11.7-14.2); RDW Standard Deviation 51.8 fL (35.1-46.3)
[2025-05-21 09:29] VITALS: BP 118/72
[2025-05-21 09:43] LABS: Anion Gap 10 mmol/L (3-11); Blood Urea Nitrogen 29 mg/dL (8-24); CO2, Blood 27 mmol/L (21-32); Calcium, Blood 8.8 mg/dL (8.5-10.1); Chloride, Blood 108 mmol/L (98-108); Creatinine, Blood 0.62 mg/dL (0.60-1.20); Glucose, Blood 53 mg/dL (70-99); Potassium, Blood 4.4 mmol/L (3.5-5.5); Sodium, Blood 141 mmol/L (136-145)
--- NOTE | 2025-05-21 11:43 | NUR ---
RESIEVED A CALL FROM TELE- PER TELE PT HAS HAD SOME ST CHANGES AND AN EKG MAY BE NEEDED. SREE IRIZARRY CALLED DR AND SPOKE ABOUT THE CHANGE, DR CHEN GAVE A VERBAL ORDER FOR EKG. SREE IRIZARRY COMPLETED THE EKG AND CALLED DR CHEN WITH THE RESULT, HE ASKED THAT SHE CALL DR BIRGHT (CARDIOLOGY) TO LOOK AT THE EKG. THIS RN CALLED DR BRIGHT, HE CAME TO LOOK AT THE EKG AND HE SPOKE TO THE PT AND FAMILY AGAIN, THE CHANGES ARE LIKELY RELATED TO DIGOXIN.
[2025-05-21 15:19] VITALS: BP 118/82
--- NOTE | 2025-05-21 17:21 | NUR ---
SHIFT SUMMARY- PT FAILEDHIS NIGHT OXEMITRY AND REQUIRES 2L WHILE SLEEPING. CARDIOLOGY SAW HIM A SECOND TIME AFTER HE HAD ST CHANGES ON TELE AND EKG WAS COMPLETED. PER CARDIOLOGY THE CHANGES ARE DIGOXIN RELATED. PLAN IS FOR PT TO GO HOME TOMORROW WITH NIGHT TTIME O2 SET UP AT HOME. THE FAMILY SPOKE TO THIS RN AND WERE TOLD THAT CARE MANAGEMET SHOULD HELP THEM GET THE O2 DELIVERED THEY WOULD LIKE TO USE [facility], THAT IS WHO THEIR NEIGHBOR USED. PT WILL HAVE NEW MEDS BUT HIS PHARMACY IS NO OPEN UNTIL TOMORROW SO THEY REQUEST THE DC HOME TO BE TOMORROW. PT IN BED, CALL LIGHT IN REACH NO S&S OF DISTRESS NOTED. 2L O2 ON VIA NC.
[2025-05-21 20:07] VITALS: BP 118/87
[2025-05-22 01:10] VITALS: BP 124/93
[2025-05-22 04:04] VITALS: BP 127/94
[2025-05-22 06:30] LABS: BASOPHILS ABSOLUTE AUTO 0.03 K/mm3 (0.00-0.23); BASOPHILS PERCENT AUTO 0 % (0-2); EOSINOPHILS ABSOLUTE AUTO 0.09 K/mm3 (0.00-0.68); EOSINOPHILS PERCENT AUTO 1 % (0-6); Hematocrit 47.7 % (37.0-53.0); Hemoglobin 15.6 g/dL (13.5-17.5); IMMATURE GRAN ABSOLUTE AUTO 0.04 K/mm3 (0.00-0.10); IMMATURE GRAN PERCENT AUTO 1 % (0-1); LYMPHOCYTES ABSOLUTE AUTO 1.40 K/mm3 (0.84-5.20); LYMPHOCYTES PERCENT AUTO 20 % (21-46); MONOCYTES ABSOLUTE AUTO 0.77 K/mm3 (0.16-1.47); MONOCYTES PERCENT AUTO 11 % (4-13); Mean Corpuscular HGB Conc 32.7 g/dL (31.5-36.5); Mean Corpuscular Volume 92 fL (80-100); NEUTROPHILS ABSOLUTE AUTO 4.64 K/mm3 (1.96-9.15); NEUTROPHILS PERCENT AUTO 67 % (41-73); NRBC ABSOLUTE 0.00 K/mm3 (0.00-0.02); NRBC Auto 0.0 /100 WBC (0.0-0.2); Platelet Count 191 K/mm3 (150-400); RDW Coefficient Variation 15.3 % (11.7-14.2); RDW Standard Deviation 50.6 fL (35.1-46.3)
[2025-05-22 06:51] LABS: Alanine Aminotransfer (ALT/SGP 68.0 U/L (12-78); Albumin, Blood 3.1 g/dL (3.4-5.0); Albumin/Globulin Ratio 0.8 (0.8-1.8); Anion Gap 9.0 mmol/L (3-11); Aspartate Aminotrans (AST/SGOT 40.0 U/L (12-37); Bilirubin, Total 0.7 mg/dL (0.1-1.0); Blood Urea Nitrogen 28.0 mg/dL (8-24); CO2, Blood 28.0 mmol/L (21-32); Calcium, Blood 8.8 mg/dL (8.5-10.1); Chloride, Blood 106.0 mmol/L (98-108); Creatinine, Blood 0.53 mg/dL (0.60-1.20); Globulin, Blood 3.9 g/dL (2.2-4.0); Glucose, Blood 59.0 mg/dL (70-99); Potassium, Blood 4.0 mmol/L (3.5-5.5); Sodium, Blood 139.0 mmol/L (136-145); Total Protein, Blood 7.0 g/dL (6.4-8.2)
[2025-05-22 07:18] VITALS: BP 130/83
[2025-05-22] MEDS ORDERED: DIGOX125 MC1 PO (12:16)
--- NOTE | 2025-05-22 15:18 | NUR ---
SHIFT SUMMARY: PATIENT HAS HAD NO NEW CHANGES THIS SHIFT. PATIENT DENIES CP/PRESSURE, SOB, N/V AND DIZZINESS. PATIENT ON TELE, SR HR IN THE HIGH 80'S BPM c BBB/PVC. PATIENT RECEIVED SCHEDULED MEDS PER EMAR. VITAL SIGNS REVIEWED. PATIENT HAS GREAT APPETITE, INCONTINENT OF BLADDER, ATTENDS AND MALE PUREWICK IN PLACED, TOLERATING WELL. PATIENT A/O TO SELF, PLEASANT AND COOPERATIVE c STAFF. PIV DC'D BY DARIANA BRIGGS. PATIENT DISCHARGE HOME. DISCHARGE INSTRUCTIONS PACKET GIVEN TO PATIENT/PARENTS AT BEDSIDE. PATIENT AND PARENTS EDUCATED ON ADMITITNG DX'S OF CP, S/S, TX, NEW RX, SELF CARE AND HOME O2 AT HS. PATIENT AND PARENTS VERBALIZED UNDERSTANDING AND NO FURTHER QUESTIONS. [facility] [place]. ALL PERSONAL BELONGINGS WERE SENT c PATIENT. PATIENT LEFT THE ROOM AT 1514 TRANSPORTED VIA WC BY DARIANA BRIGGS TO PATIENT ENTRANCE.
== END 2025-05-22 15:14 | disposition home or self-care (01) | DRG 291 ==
LOC: ER 23:44 → MEDS 23:45
PROVIDERS: Internal Medicine; Student in an Organized Health Care Education/Training Program; ADMIT Student in an Organized Health Care Education/Training Program
DX: I11.0 Hypertensive heart disease with heart failure (principal); I50.23 Acute on chronic systolic (congestive) heart failure; J96.01 Acute respiratory failure with hypoxia; E27.1 Primary adrenocortical insufficiency; I48.0 Paroxysmal atrial fibrillation; E78.5 Hyperlipidemia, unspecified; Z66 Do not resuscitate; K21.9 Gastro-esophageal reflux disease without esophagitis; I44.7 Left bundle-branch block, unspecified; G71.01 Duchenne or Becker muscular dystrophy; E16.2 Hypoglycemia, unspecified; I42.0 Dilated cardiomyopathy; E83.119 Hemochromatosis, unspecified; Z88.1 Allergy status to other antibiotic agents; Z88.0 Allergy status to penicillin; Z79.899 Other long term (current) drug therapy; Z79.52 Long term (current) use of systemic steroids; Z79.891 Long term (current) use of opiate analgesic; Z87.19 Personal history of other diseases of the digestive system; I25.2 Old myocardial infarction; Z79.82 Long term (current) use of aspirin; Z86.59 Personal history of other mental and behavioral disorders
CPT/HCPCS: 36415; 71045; 80048; 80053; 80162; 81001; 82947; 83735; 83880; 84145; 84484; 85025; 93005; 93010; 94762; 96372; 96374; 96375; 99285-25; A9270; C8929; G0378; J1160; J1650; J1938; Q9957

== ENCOUNTER 2025-05-24 03:05 | Day surgery (SDC) | payer OTHER ==
[~2025-05-24 03:05] MED LIST changes: +DIGOX125 MC1 PO
[2025-05-24] MEDS ORDERED: Lidocaine HCl 4% Cream 5 GM ONE (12:44)
== END 2025-05-24 23:00 | disposition home or self-care (01) ==
LOC: WOUND 03:05
DX: L89.524 Pressure ulcer of left ankle, stage 4 (principal); G71.01 Duchenne or Becker muscular dystrophy; I48.91 Unspecified atrial fibrillation; I11.0 Hypertensive heart disease with heart failure; I50.9 Heart failure, unspecified; M81.0 Age-related osteoporosis without current pathological fracture; Z88.0 Allergy status to penicillin; Z88.8 Allergy status to other drugs, medicaments and biological substances
CPT/HCPCS: A6213; A9270; G0463

== ENCOUNTER 2025-05-31 04:01 | Day surgery (SDC) | payer OTHER ==
[2025-05-31] MEDS ORDERED: Lidocaine HCl 4% Cream 5 GM ONE (14:37)
== END 2025-05-31 23:00 | disposition home or self-care (01) ==
LOC: WOUND 04:01
DX: L89.523 Pressure ulcer of left ankle, stage 3 (principal); G71.01 Duchenne or Becker muscular dystrophy
CPT/HCPCS: A6213; A9270

== ENCOUNTER 2025-06-12 00:40 | Day surgery (SDC) | payer OTHER ==
[2025-06-12] MEDS ORDERED: Lidocaine HCl 4% Cream 5 GM ONE (11:24)
== END 2025-06-12 23:00 | disposition home or self-care (01) ==
LOC: WOUND 00:40
DX: L89.524 Pressure ulcer of left ankle, stage 4 (principal); G71.01 Duchenne or Becker muscular dystrophy; R62.50 Unspecified lack of expected normal physiological development in childhood
CPT/HCPCS: A6213; A9270

== ENCOUNTER 2025-06-24 22:47 | Inpatient (IN) | payer OTHER ==
[~2025-06-24] VITALS: Ht 172.7 cm; Wt 68.1 kg
[2025-06-24 23:15] LABS: BASOPHILS ABSOLUTE AUTO 0.04 K/mm3 (0.00-0.23); BASOPHILS PERCENT AUTO 1 % (0-2); EOSINOPHILS ABSOLUTE AUTO 0.04 K/mm3 (0.00-0.68); EOSINOPHILS PERCENT AUTO 1 % (0-6); Hematocrit 50.8 % (37.0-53.0); Hemoglobin 15.9 g/dL (13.5-17.5); IMMATURE GRAN ABSOLUTE AUTO 0.07 K/mm3 (0.00-0.10); IMMATURE GRAN PERCENT AUTO 1 % (0-1); LYMPHOCYTES ABSOLUTE AUTO 1.09 K/mm3 (0.84-5.20); LYMPHOCYTES PERCENT AUTO 16 % (21-46); MONOCYTES ABSOLUTE AUTO 0.57 K/mm3 (0.16-1.47); MONOCYTES PERCENT AUTO 8 % (4-13); Mean Corpuscular HGB Conc 31.3 g/dL (31.5-36.5); Mean Corpuscular Volume 93 fL (80-100); NEUTROPHILS ABSOLUTE AUTO 5.14 K/mm3 (1.96-9.15); NEUTROPHILS PERCENT AUTO 74 % (41-73); NRBC ABSOLUTE 0.00 K/mm3 (0.00-0.02); NRBC Auto 0.0 /100 WBC (0.0-0.2); Platelet Count 149 K/mm3 (150-400); RDW Coefficient Variation 15.9 % (11.7-14.2); RDW Standard Deviation 53.8 fL (35.1-46.3)
[2025-06-24 23:34] LABS: Alanine Aminotransfer (ALT/SGP 82.0 U/L (12-78); Albumin, Blood 3.6 g/dL (3.4-5.0); Albumin/Globulin Ratio 0.9 (0.8-1.8); Anion Gap 9.0 mmol/L (3-11); Aspartate Aminotrans (AST/SGOT 48.0 U/L (12-37); Bilirubin, Total 0.4 mg/dL (0.1-1.0); Blood Urea Nitrogen 24.0 mg/dL (8-24); CO2, Blood 25.0 mmol/L (21-32); Calcium, Blood 8.8 mg/dL (8.5-10.1); Chloride, Blood 106.0 mmol/L (98-108); Creatinine, Blood 0.66 mg/dL (0.60-1.20); Globulin, Blood 4.0 g/dL (2.2-4.0); Glucose, Blood 173.0 mg/dL (70-99); Potassium, Blood 4.3 mmol/L (3.5-5.5); Sodium, Blood 136.0 mmol/L (136-145); Total Protein, Blood 7.6 g/dL (6.4-8.2)
[2025-06-25] MEDS ORDERED: NS 500 ML IV SCH ×2 (01:15→12:05)
[2025-06-25 02:29] LABS: BASOPHILS ABSOLUTE AUTO 0.05 K/mm3 (0.00-0.23); BASOPHILS PERCENT AUTO 1 % (0-2); EOSINOPHILS ABSOLUTE AUTO 0.05 K/mm3 (0.00-0.68); EOSINOPHILS PERCENT AUTO 1 % (0-6); Hematocrit 47.9 % (37.0-53.0); Hemoglobin 15.2 g/dL (13.5-17.5); IMMATURE GRAN ABSOLUTE AUTO 0.06 K/mm3 (0.00-0.10); IMMATURE GRAN PERCENT AUTO 1 % (0-1); LYMPHOCYTES ABSOLUTE AUTO 1.09 K/mm3 (0.84-5.20); LYMPHOCYTES PERCENT AUTO 17 % (21-46); MONOCYTES ABSOLUTE AUTO 0.60 K/mm3 (0.16-1.47); MONOCYTES PERCENT AUTO 9 % (4-13); Mean Corpuscular HGB Conc 31.7 g/dL (31.5-36.5); Mean Corpuscular Volume 94 fL (80-100); NEUTROPHILS ABSOLUTE AUTO 4.76 K/mm3 (1.96-9.15); NEUTROPHILS PERCENT AUTO 72 % (41-73); NRBC ABSOLUTE 0.00 K/mm3 (0.00-0.02); NRBC Auto 0.0 /100 WBC (0.0-0.2); Platelet Count 148 K/mm3 (150-400); RDW Coefficient Variation 15.8 % (11.7-14.2); RDW Standard Deviation 53.8 fL (35.1-46.3)
[2025-06-25 02:44] LABS: Anion Gap 8.0 mmol/L (3-11); Blood Urea Nitrogen 24.0 mg/dL (8-24); CO2, Blood 25.0 mmol/L (21-32); Calcium, Blood 8.2 mg/dL (8.5-10.1); Chloride, Blood 109.0 mmol/L (98-108); Creatinine, Blood 0.56 mg/dL (0.60-1.20); Glucose, Blood 95.0 mg/dL (70-99); Potassium, Blood 4.2 mmol/L (3.5-5.5); Sodium, Blood 138.0 mmol/L (136-145)
[2025-06-25] MEDS ORDERED: Dose Adjust by Pharmacy XX STA ×2 (03:35→10:47)
[2025-06-25] MEDS ORDERED: Heparin Sodium,Porcine/0.5 NS 500 ML IV SCH (03:40)
[2025-06-25 03:47] LABS: Anti-Xa UFH, PHA Monitoring <0.10 IU/mL; Prothrombin Time Results 11.3 Sec (9.7-11.5)
[2025-06-25 04:23] VITALS: BP 106/73
--- NOTE | 2025-06-25 06:01 | NUR ---
ADMIT NOTE/ SHIFT SUMMARY REPORT RECEIVED BY THIS RN FROM JEWEL WAXER, ARTURO @ APPROX 0200 PT ARRIVED TO PCU 03 FROM ER AND SLID OVER BY MEDICAL STAFF @ APPROX 0230 PT IS A&O X2 , PT ABLE TO ANSWER SIMPLE QUESTIONS/HX OF DEVELOPMENTAL DELAY, MOVING ALL EXTREMITIES WITH PURPOSE/ FAMILY STATES PT IS WHEELCHAIR BOUND AT BASELINE AND THEY USE A LIFT TO TRANSFER PATIENT. CONTINUOUS SPO2, SPO2 GREATER THAN 92% RA, LUNGS SOUND CLEAR T/O, NO SIGNS OF RESPIRATORY DISTRESS NOTED. CONTINUOUS TELE MONITORING, SINUS 90-100 S, PULSES PRESENT T/O, PT DENEIS PAIN T/O THIS SHIFT, BP STABLE WITH MAP GREATER THAN 65. BOWEL TONES PRESENT IN ALL 4Q, PT DENIES FEELINGS OF CONSTIPATION OR NAUSEA. PUREWICK IS CONNECTED TO LOW CONTINUOUS SUCTION, URINE YELLOW IN COLOR BED LOWEST POSITION, CALL LIGHT IN REACH, AWAITING TO GIVE REPORT TO ONCOMING RN.
[2025-06-25 07:26] VITALS: BP 118/82
[2025-06-25 13:09] VITALS: BP 114/74
--- NOTE | 2025-06-25 15:35 | NUR ---
SHIFT SUMMARY PATIENT AOX2 ABLE TO RESPOND TO YES OR NO QUESTIONS. DENIES CP OR SOB. VITALS ARE STABLE AND PATIENT IS ABLE TO TOLERATE HIS MEALS. HE DID COMPLAIN OF SOME CHEST PAIN WHEN HIS FAMILY WAS HERE AT BEDSIDE BUT AFTER THEY LEFT HE SAID HE HAS NO CHEST PAIN 0 OUT 10. HE IS UNABLE TO WALK, HE IS REPOSITIONED EVERY 2 HOURS. HE IS ABLE TO MOVE ALL EXTREMETIES AND FOLLOWS COMMANDS.
[2025-06-25] MEDS ORDERED: Clarify Drug Order XX ONE (17:25)
[2025-06-25 18:29] VITALS: BP 117/81
[2025-06-25 20:34] VITALS: BP 115/71
[2025-06-25] MEDS ORDERED: Isosorbide Mononitrate 30 MG TABCR PO SCH (21:00)
[2025-06-25 23:06] VITALS: BP 113/71
[2025-06-26 03:13] VITALS: BP 106/64
[2025-06-26 03:49] LABS: Hematocrit 42.7 % (37.0-53.0); Hemoglobin 13.3 g/dL (13.5-17.5); Platelet Count 153 K/mm3 (150-400)
--- NOTE | 2025-06-26 06:02 | NUR ---
SHIFT SUMMARY PT IS A&O X2 , PT ABLE TO ANSWER SIMPLE QUESTIONS/HX OF DEVELOPMENTAL DELAY, MOVING ALL EXTREMITIES WITH PURPOSE, ASSITING PT WITH REPOSITIONING. SPO2 GREATER THAN 92% RA, LUNGS SOUND CLEAR T/O, NO SIGNS OF RESPIRATORY DISTRESS NOTED. CONTINUOUS TELE MONITORING, SINUS 80-90 S, PULSES PRESENT T/O, PT DENEIS PAIN T/O THIS SHIFT, BP STABLE WITH MAP GREATER THAN 65. BOWEL TONES PRESENT IN ALL 4Q, PT DENIES FEELINGS OF CONSTIPATION OR NAUSEA. PUREWICK IS CONNECTED TO LOW CONTINUOUS SUCTION, URINE YELLOW IN COLOR BED LOWEST POSITION, CALL LIGHT IN REACH, AWAITING TO GIVE REPORT TO ONCOMING RN.
[2025-06-26 08:25] VITALS: BP 126/81
[2025-06-26 11:09] VITALS: BP 123/82
[2025-06-26] MEDS ORDERED: Imdur-ER60 MG PO (12:40)
[2025-06-26] MEDS ORDERED: ELIQUIS2.5 MG PO (12:40)
[2025-06-26] MEDS ORDERED: PANT20 PO (12:40)
--- NOTE | 2025-06-26 14:00 | NUR ---
SHIFT SUMMARY PATIENT AOX2 ABLE TO MAKE NEEDS KNOWN ANSWERS YES OR NO QUESTIONS. DENIES CP OR SOB AND WANTS TO GO HOME. VOIDING URINE AND HAD BM TODAY, TOLERATING MEALS. FAMILY AT BEDSIDE UNDERSTANDS ALL DISCHARGE INSTRUCTIONS.
[2025-06-26] MEDS ORDERED: Isosorbide Mononitrate 60 MG TABCR PO SCH (21:00)
== END 2025-06-26 14:52 | disposition home or self-care (01) | DRG 281 ==
LOC: ER 22:47 → PCU 22:48 → ER 22:48 → PCU 06-25 02:21
PROVIDERS: Emergency Medicine; Family Medicine; ADMIT Internal Medicine
DX: I48.0 Paroxysmal atrial fibrillation (principal); E27.1 Primary adrenocortical insufficiency; I21.A1 Myocardial infarction type 2; G12.21 Amyotrophic lateral sclerosis; I50.22 Chronic systolic (congestive) heart failure; I42.0 Dilated cardiomyopathy; E83.119 Hemochromatosis, unspecified; M81.0 Age-related osteoporosis without current pathological fracture; E29.1 Testicular hypofunction; Z66 Do not resuscitate; I11.0 Hypertensive heart disease with heart failure; F88 Other disorders of psychological development; E78.1 Pure hyperglyceridemia; I34.0 Nonrheumatic mitral (valve) insufficiency; F79 Unspecified intellectual disabilities; Z88.0 Allergy status to penicillin; Z88.1 Allergy status to other antibiotic agents; Z79.01 Long term (current) use of anticoagulants; Z79.52 Long term (current) use of systemic steroids; Z79.82 Long term (current) use of aspirin; Z79.02 Long term (current) use of antithrombotics/antiplatelets; Z79.84 Long term (current) use of oral hypoglycemic drugs
CPT/HCPCS: 36415; 71046; 80048; 80053; 83690; 84484; 85014; 85018; 85025; 85049; 85520; 85610; 85730; 93005; 93010; 96374; 96375; 99285-25; A9270; G0378; J1644; J1720; J7040

== ENCOUNTER 2025-07-11 04:40 | Day surgery (SDC) | payer OTHER ==
[~2025-07-11 04:40] MED LIST changes: +ELIQUIS2.5 MG PO; +Imdur-ER60 MG PO; +PANT20 PO
[2025-07-11] MEDS ORDERED: Lidocaine HCl 4% Cream 5 GM ONE (10:18)
== END 2025-07-11 23:01 | disposition home or self-care (01) ==
LOC: WOUND 04:40
DX: L89.524 Pressure ulcer of left ankle, stage 4 (principal); G71.01 Duchenne or Becker muscular dystrophy
CPT/HCPCS: A6213; A9270

== ENCOUNTER 2025-07-18 02:28 | Day surgery (SDC) | payer OTHER ==
[2025-07-18] MEDS ORDERED: Lidocaine HCl 4% Cream 5 GM ONE (10:49)
== END 2025-07-18 23:00 | disposition home or self-care (01) ==
LOC: WOUND 02:28
DX: L89.524 Pressure ulcer of left ankle, stage 4 (principal); G71.01 Duchenne or Becker muscular dystrophy; R62.50 Unspecified lack of expected normal physiological development in childhood; E27.40 Unspecified adrenocortical insufficiency
CPT/HCPCS: A6213; A9270

== ENCOUNTER 2025-07-25 02:35 | Day surgery (SDC) | payer OTHER ==
[2025-07-25] MEDS ORDERED: Lidocaine HCl 4% Cream 5 GM ONE (10:44)
== END 2025-07-25 23:00 | disposition home or self-care (01) ==
LOC: WOUND 02:35
DX: L89.524 Pressure ulcer of left ankle, stage 4 (principal); G71.01 Duchenne or Becker muscular dystrophy
CPT/HCPCS: A6213; A9270

== ENCOUNTER 2025-08-01 02:29 | Day surgery (SDC) | payer OTHER ==
[2025-08-01] MEDS ORDERED: Lidocaine HCl 4% Cream 5 GM ONE (10:46)
== END 2025-08-01 22:00 | disposition home or self-care (01) ==
LOC: WOUND 02:29
DX: L89.524 Pressure ulcer of left ankle, stage 4 (principal); G71.01 Duchenne or Becker muscular dystrophy; E27.40 Unspecified adrenocortical insufficiency
CPT/HCPCS: A6213; A9270

== ENCOUNTER 2025-08-15 01:50 | Day surgery (SDC) | payer OTHER ==
[2025-08-15] MEDS ORDERED: Lidocaine HCl 4% Cream 5 GM ONE (10:51)
== END 2025-08-15 23:00 | disposition home or self-care (01) ==
LOC: WOUND 01:50
DX: L89.524 Pressure ulcer of left ankle, stage 4 (principal); G71.01 Duchenne or Becker muscular dystrophy; I73.9 Peripheral vascular disease, unspecified
CPT/HCPCS: A6196; A6213; A9270

== ENCOUNTER 2025-08-22 01:02 | Day surgery (SDC) | payer OTHER ==
[2025-08-22] MEDS ORDERED: Lidocaine HCl 4% Cream 5 GM ONE (10:52)
== END 2025-08-22 23:00 | disposition home or self-care (01) ==
LOC: WOUND 01:02
DX: L89.524 Pressure ulcer of left ankle, stage 4 (principal); G71.01 Duchenne or Becker muscular dystrophy; E27.40 Unspecified adrenocortical insufficiency
CPT/HCPCS: A6196; A6213; A9270

== ENCOUNTER 2025-08-29 01:29 | Day surgery (SDC) | payer OTHER ==
[2025-08-29] MEDS ORDERED: Lidocaine HCl 4% Cream 5 GM ONE (11:00)
== END 2025-08-29 22:49 | disposition home or self-care (01) ==
LOC: WOUND 01:29
DX: L89.524 Pressure ulcer of left ankle, stage 4 (principal); I11.0 Hypertensive heart disease with heart failure; I50.9 Heart failure, unspecified
CPT/HCPCS: A6196; A6213; A9270

== ENCOUNTER 2025-09-02 11:18 | Observation (INO) | payer OTHER ==
[~2025-09-02] VITALS: Ht 177.8 cm; Wt 61.5 kg
[2025-09-02 11:55] LABS: BASOPHILS ABSOLUTE AUTO 0.03 K/mm3 (0.00-0.23); BASOPHILS PERCENT AUTO 0 % (0-2); EOSINOPHILS ABSOLUTE AUTO 0.08 K/mm3 (0.00-0.68); EOSINOPHILS PERCENT AUTO 1 % (0-6); Hematocrit 47.7 % (37.0-53.0); Hemoglobin 15.1 g/dL (13.5-17.5); IMMATURE GRAN ABSOLUTE AUTO 0.03 K/mm3 (0.00-0.10); IMMATURE GRAN PERCENT AUTO 0 % (0-1); LYMPHOCYTES ABSOLUTE AUTO 1.23 K/mm3 (0.84-5.20); LYMPHOCYTES PERCENT AUTO 14 % (21-46); MONOCYTES ABSOLUTE AUTO 0.64 K/mm3 (0.16-1.47); MONOCYTES PERCENT AUTO 7 % (4-13); Mean Corpuscular HGB Conc 31.7 g/dL (31.5-36.5); Mean Corpuscular Volume 93 fL (80-100); NEUTROPHILS ABSOLUTE AUTO 6.80 K/mm3 (1.96-9.15); NEUTROPHILS PERCENT AUTO 77 % (41-73); NRBC ABSOLUTE 0.00 K/mm3 (0.00-0.02); NRBC Auto 0.0 /100 WBC (0.0-0.2); Platelet Count 149 K/mm3 (150-400); RDW Coefficient Variation 14.4 % (11.7-14.2); RDW Standard Deviation 49.1 fL (35.1-46.3)
[2025-09-02] MEDS ORDERED: OMEGA-3 + D SO1 EACH PO (11:55)
[2025-09-02] MEDS ORDERED: Norco 5-325 Ta1 EACH PO (11:56)
[2025-09-02] MEDS ORDERED: OMEP20ER PO (11:59)
[2025-09-02] MEDS ORDERED: TESTOSTERONE IM (11:59)
[2025-09-02 12:14] LABS: Magnesium, Blood 1.9 mg/dL (1.6-2.4)
[2025-09-02 12:15] LABS: Anion Gap 6.0 mmol/L (3-11); Blood Urea Nitrogen 22.0 mg/dL (8-24); CO2, Blood 29.0 mmol/L (21-32); Calcium, Blood 9.2 mg/dL (8.5-10.1); Chloride, Blood 108.0 mmol/L (98-108); Creatinine, Blood 0.46 mg/dL (0.60-1.20); Glucose, Blood 143.0 mg/dL (70-99); Potassium, Blood 3.9 mmol/L (3.5-5.5); Sodium, Blood 139.0 mmol/L (136-145)
[2025-09-02] MEDS ORDERED: FLUDROCORTISON0.1 M1 PO (18:09)
[2025-09-02] MEDS ORDERED: HYDROcodone 5-APAP 325 TAB PO PRN (18:10)
[2025-09-02] MEDS ORDERED: FLU VACC TS2025-26(6MOS UP)/PF 45 MCG/0.5 ML SYRINGE IM SCH (18:15)
[2025-09-02] MEDS ORDERED: METO25ER PO (20:13)
[2025-09-02] MEDS ORDERED: Isosorbide Mono30 MG PO (20:17)
[2025-09-02] MEDS ORDERED: DIGOX125 MC1 PO (20:20)
--- NOTE | 2025-09-02 20:26 | NUR ---
TOOK REPORT FROM ED SREE MCMANUS @ 2024
[2025-09-02 21:04] VITALS: BP 128/96
--- NOTE | 2025-09-02 22:58 | NUR ---
DR NAYAK CAME TO UNIT PRIOR TO PT ADMIT TO DISCUSS PURPOSE OF ADMIT. THEY STATED THAT IT IS MORE RESPITE FOR FAMILY CAREGIVERS AND TO DISCUSS POSSIBLE PALLIATIVE CARE MEASURES TOMORROW.
[2025-09-02 23:48] VITALS: BP 130/77
[2025-09-03 04:55] LABS: BASOPHILS ABSOLUTE AUTO 0.04 K/mm3 (0.00-0.23); BASOPHILS PERCENT AUTO 0 % (0-2); EOSINOPHILS ABSOLUTE AUTO 0.03 K/mm3 (0.00-0.68); EOSINOPHILS PERCENT AUTO 0 % (0-6); Hematocrit 47.5 % (37.0-53.0); Hemoglobin 15.1 g/dL (13.5-17.5); IMMATURE GRAN ABSOLUTE AUTO 0.03 K/mm3 (0.00-0.10); IMMATURE GRAN PERCENT AUTO 0 % (0-1); LYMPHOCYTES ABSOLUTE AUTO 1.67 K/mm3 (0.84-5.20); LYMPHOCYTES PERCENT AUTO 17 % (21-46); MONOCYTES ABSOLUTE AUTO 0.97 K/mm3 (0.16-1.47); MONOCYTES PERCENT AUTO 10 % (4-13); Mean Corpuscular HGB Conc 31.8 g/dL (31.5-36.5); Mean Corpuscular Volume 93 fL (80-100); NEUTROPHILS ABSOLUTE AUTO 7.00 K/mm3 (1.96-9.15); NEUTROPHILS PERCENT AUTO 72 % (41-73); NRBC ABSOLUTE 0.00 K/mm3 (0.00-0.02); NRBC Auto 0.0 /100 WBC (0.0-0.2); Platelet Count 156 K/mm3 (150-400); RDW Coefficient Variation 14.3 % (11.7-14.2); RDW Standard Deviation 48.8 fL (35.1-46.3)
--- NOTE | 2025-09-03 05:05 | NUR ---
SHIFT SUMMARY NOC PT A/O TO SELF. PLEASANT AND COOPERATIVE, BUT DEVELOPEMENTALLY DELAYED AND HAS MUSCULAR DYSTROPHY. ADMIT FOR ELEVATED TROPONINS. ADMIT MD CAME TO UNIT TO DISCUSS ADMIT STATUS OF PT MORE RESPITE FOR ELDERLY PARENTS WHO ARE PRIMARY CAREGIVERS ALONG WITH HOME HEALTH RN. PT FAMILY HAS DECLINED INTERVENTIONS FOR CHRONIC CARDIAC ISSUES. MD WILL DISCUSS PALLIATIVE OPTIONS WITH FAMILY AND CARE MANAGMENT TODAY OR THURSDAY. PT IS ON TELE SINUS IN 80'S. PT HAS STAGE 3 PRESSUER ULCER ON POSTERIOR L ANKLE THAT HAS WOUND CARE DRESSINGS AND ORDERS IN PLACE, PICS IN CHART. PUREWICK IN PLACE FOR FOR INCONTINENCE. PT CURRENTLY RESTING WITH BED ALARM ON, BED IN LOWEST POSITION, AND CALL LIGHT WITHIN REACH.
[2025-09-03 05:23] LABS: Anion Gap 12.0 mmol/L (3-11); Blood Urea Nitrogen 25.0 mg/dL (8-24); CO2, Blood 26.0 mmol/L (21-32); Calcium, Blood 9.1 mg/dL (8.5-10.1); Chloride, Blood 105.0 mmol/L (98-108); Creatinine, Blood 0.48 mg/dL (0.60-1.20); Glucose, Blood 57.0 mg/dL (70-99); Potassium, Blood 3.3 mmol/L (3.5-5.5); Sodium, Blood 140.0 mmol/L (136-145)
[2025-09-03 07:33] VITALS: BP 125/100
[2025-09-03] MEDS ORDERED: Fenofibrate 67 MG Cap PO SCH (08:00)
[2025-09-03] MEDS ORDERED: Omega-3 Acid Ethyl Esters 1,000 MG CAP PO SCH (09:00)
[2025-09-03 11:14] VITALS: BP 112/90
--- NOTE | 2025-09-03 14:58 | NUR ---
DISCHARGE SUMMARY PATIENT DISCHARGED HOME, TO RESUME HOME HEALTH SERVICES. PRESSURE ULCER PRESENT TO L ANKLE ON DISCHARGE, SEES OUTPATIENT WOUND CARE FOR THIS, DAD STATED HAS APPT THIS WEEK, ENCOURAGED TO KEEP IT. IV REMOVED WITHOUT COMPLICATION. DISCHARGE PACKET GIVEN AND REVIEWED WITH DAD, QUESTIONS ANSWERED, VERBALIZED UNDERSTANDING.
== END 2025-09-03 12:31 | disposition home or self-care (01) ==
LOC: ER 11:18 → MEDS 11:19
PROVIDERS: Emergency Medicine; ADMIT Student in an Organized Health Care Education/Training Program
DX: I21.4 Non-ST elevation (NSTEMI) myocardial infarction (principal); R79.89 Other specified abnormal findings of blood chemistry; I48.0 Paroxysmal atrial fibrillation; K21.9 Gastro-esophageal reflux disease without esophagitis; I11.0 Hypertensive heart disease with heart failure; E78.1 Pure hyperglyceridemia; I50.20 Unspecified systolic (congestive) heart failure; E27.1 Primary adrenocortical insufficiency; Z88.0 Allergy status to penicillin; Z88.1 Allergy status to other antibiotic agents; Z79.01 Long term (current) use of anticoagulants; Z79.899 Other long term (current) drug therapy
CPT/HCPCS: 36415; 71045; 80048; 83735; 83880; 84484; 85025; 93005; 93010; 96374; 99285-25; A6590; A9270; G0378; J1720; J1938; J2470

== ENCOUNTER 2025-09-12 00:24 | Day surgery (SDC) | payer OTHER ==
[~2025-09-12 00:24] MED LIST changes: +Isosorbide Mono30 MG PO; +METO25ER PO; +OMEGA-3 + D SO1 EACH PO
[2025-09-12] MEDS ORDERED: Lidocaine HCl 4% Cream 5 GM ONE (10:55)
== END 2025-09-12 22:53 | disposition home or self-care (01) ==
LOC: WOUND 00:24
DX: L89.524 Pressure ulcer of left ankle, stage 4 (principal); G71.01 Duchenne or Becker muscular dystrophy
CPT/HCPCS: A6213; A9270

== ENCOUNTER 2025-09-15 23:56 | Emergency (ER) | payer OTHER ==
[~2025-09-15] VITALS: Ht 167.6 cm; Wt 68.0 kg
[2025-09-16 00:36] LABS: BASOPHILS ABSOLUTE AUTO 0.04 K/mm3 (0.00-0.23); BASOPHILS PERCENT AUTO 1 % (0-2); EOSINOPHILS ABSOLUTE AUTO 0.06 K/mm3 (0.00-0.68); EOSINOPHILS PERCENT AUTO 1 % (0-6); Hematocrit 48.2 % (37.0-53.0); Hemoglobin 15.4 g/dL (13.5-17.5); IMMATURE GRAN ABSOLUTE AUTO 0.04 K/mm3 (0.00-0.10); IMMATURE GRAN PERCENT AUTO 1 % (0-1); LYMPHOCYTES ABSOLUTE AUTO 1.06 K/mm3 (0.84-5.20); LYMPHOCYTES PERCENT AUTO 14 % (21-46); MONOCYTES ABSOLUTE AUTO 0.66 K/mm3 (0.16-1.47); MONOCYTES PERCENT AUTO 8 % (4-13); Mean Corpuscular HGB Conc 32.0 g/dL (31.5-36.5); Mean Corpuscular Volume 92 fL (80-100); NEUTROPHILS ABSOLUTE AUTO 6.00 K/mm3 (1.96-9.15); NEUTROPHILS PERCENT AUTO 76 % (41-73); NRBC ABSOLUTE 0.00 K/mm3 (0.00-0.02); NRBC Auto 0.0 /100 WBC (0.0-0.2); Platelet Count 179 K/mm3 (150-400); RDW Coefficient Variation 13.9 % (11.7-14.2); RDW Standard Deviation 46.9 fL (35.1-46.3)
[2025-09-16 01:03] LABS: Alanine Aminotransfer (ALT/SGP 78.0 U/L (12-78); Albumin, Blood 4.0 g/dL (3.4-5.0); Albumin/Globulin Ratio 1.0 (0.8-1.8); Anion Gap 9.0 mmol/L (3-11); Aspartate Aminotrans (AST/SGOT 47.0 U/L (12-37); Bilirubin, Total 0.4 mg/dL (0.1-1.0); Blood Urea Nitrogen 28.0 mg/dL (8-24); CO2, Blood 29.0 mmol/L (21-32); Calcium, Blood 8.8 mg/dL (8.5-10.1); Chloride, Blood 104.0 mmol/L (98-108); Creatinine, Blood 0.48 mg/dL (0.60-1.20); Globulin, Blood 4.0 g/dL (2.2-4.0); Glucose, Blood 126.0 mg/dL (70-99); Potassium, Blood 4.9 mmol/L (3.5-5.5); Sodium, Blood 137.0 mmol/L (136-145); Total Protein, Blood 8.0 g/dL (6.4-8.2)
[2025-09-16 02:30] VITALS: BP 111/73
== END 2025-09-16 02:58 | disposition home or self-care (01) ==
LOC: ER 23:56
PROVIDERS: Student in an Organized Health Care Education/Training Program
DX: R07.2 Precordial pain (principal); E78.5 Hyperlipidemia, unspecified; K21.9 Gastro-esophageal reflux disease without esophagitis; Z86.79 Personal history of other diseases of the circulatory system; Z79.02 Long term (current) use of antithrombotics/antiplatelets; Z79.899 Other long term (current) drug therapy; Z88.0 Allergy status to penicillin; Z88.1 Allergy status to other antibiotic agents
CPT/HCPCS: 71045; 80053; 84484; 85025; 93005; 93010; 99285

== ENCOUNTER 2025-09-19 01:09 | Day surgery (SDC) | payer OTHER ==
[2025-09-19] MEDS ORDERED: Lidocaine HCl 4% Cream 5 GM ONE (10:46)
== END 2025-09-19 22:59 | disposition home or self-care (01) ==
LOC: WOUND 01:09
DX: L89.524 Pressure ulcer of left ankle, stage 4 (principal); G71.01 Duchenne or Becker muscular dystrophy; E27.40 Unspecified adrenocortical insufficiency
CPT/HCPCS: A6213; A9270

== ENCOUNTER 2025-10-10 02:29 | Day surgery (SDC) | payer OTHER ==
[2025-10-10] MEDS ORDERED: Lidocaine HCl 4% Cream 5 GM ONE (11:10)
== END 2025-10-10 23:37 | disposition home or self-care (01) ==
LOC: WOUND 02:29
DX: L89.524 Pressure ulcer of left ankle, stage 4 (principal); G71.01 Duchenne or Becker muscular dystrophy
CPT/HCPCS: A6213; A9270

== ENCOUNTER 2025-10-17 00:41 | Observation (INO) | payer OTHER ==
[~2025-10-17] VITALS: Ht 172.7 cm; Wt 72.6 kg
[2025-10-17 01:46] LABS: Alanine Aminotransfer (ALT/SGP 65.0 U/L (12-78); Albumin, Blood 3.5 g/dL (3.4-5.0); Albumin/Globulin Ratio 0.9 (0.8-1.8); Anion Gap 9.0 mmol/L (3-11); Aspartate Aminotrans (AST/SGOT 38.0 U/L (12-37); Bilirubin, Total 0.4 mg/dL (0.1-1.0); Blood Urea Nitrogen 29.0 mg/dL (8-24); CO2, Blood 26.0 mmol/L (21-32); Calcium, Blood 9.0 mg/dL (8.5-10.1); Chloride, Blood 105.0 mmol/L (98-108); Creatinine, Blood 0.45 mg/dL (0.60-1.20); Globulin, Blood 3.8 g/dL (2.2-4.0); Glucose, Blood 103.0 mg/dL (70-99); Potassium, Blood 4.7 mmol/L (3.5-5.5); Sodium, Blood 135.0 mmol/L (136-145); Total Protein, Blood 7.3 g/dL (6.4-8.2)
[2025-10-17 01:50] LABS: BASOPHILS ABSOLUTE AUTO 0.04 K/mm3 (0.00-0.23); BASOPHILS PERCENT AUTO 0 % (0-2); EOSINOPHILS ABSOLUTE AUTO 0.04 K/mm3 (0.00-0.68); EOSINOPHILS PERCENT AUTO 0 % (0-6); Hematocrit 49.3 % (37.0-53.0); Hemoglobin 15.7 g/dL (13.5-17.5); IMMATURE GRAN ABSOLUTE AUTO 0.10 K/mm3 (0.00-0.10); IMMATURE GRAN PERCENT AUTO 1 % (0-1); LYMPHOCYTES ABSOLUTE AUTO 1.36 K/mm3 (0.84-5.20); LYMPHOCYTES PERCENT AUTO 13 % (21-46); MONOCYTES ABSOLUTE AUTO 0.75 K/mm3 (0.16-1.47); MONOCYTES PERCENT AUTO 7 % (4-13); Mean Corpuscular HGB Conc 31.8 g/dL (31.5-36.5); Mean Corpuscular Volume 94 fL (80-100); NEUTROPHILS ABSOLUTE AUTO 7.97 K/mm3 (1.96-9.15); NEUTROPHILS PERCENT AUTO 78 % (41-73); NRBC ABSOLUTE 0.00 K/mm3 (0.00-0.02); NRBC Auto 0.0 /100 WBC (0.0-0.2); Platelet Count 180 K/mm3 (150-400); RDW Coefficient Variation 14.4 % (11.7-14.2); RDW Standard Deviation 49.4 fL (35.1-46.3)
[2025-10-17] MEDS ORDERED: FentaNYL Citrate 50 MCG/ML 2 ML Injection IV PRN (02:30)
[2025-10-17] MEDS ORDERED: FLU VACC TS2025-26(6MOS UP)/PF 45 MCG/0.5 ML SYRINGE IM SCH (04:20)
[2025-10-17 04:58] VITALS: BP 142/102
--- NOTE | 2025-10-17 06:28 | NUR ---
PT ARRIVED TO UNIT @0450, NO C/O OF CP AT THIS TIME, L FOOT APPEARS TO BE CELLULITIC AND HAS STAGE 2-3 PRESSURE ULCER ON OUTER ANKLE. PT IS PLEASANT AND HAS COGNITIVE DYSUNCTION AT BASELINE. NO ACUTE CHANGE SINCE CARE ASSUMED.
[2025-10-17 07:59] VITALS: BP 134/86
[2025-10-17] MEDS ORDERED: Enoxaparin 40 MG/0.4 ML SYR SC SCH (09:00)
[2025-10-17] MEDS ORDERED: DOXY100 PO (13:34)
--- NOTE | 2025-10-17 14:18 | NUR ---
DISCHARGE PT DISCHARGED VIA W/C ACCOMPANIED BY NURSE AND CAREGIVER. IV REMOVED BY HYDRAULICS ENGINEER,
== END 2025-10-17 14:03 | disposition home or self-care (01) ==
LOC: ER 00:41 → MEDS 00:42 → ERHOLD 00:42 → MEDS 04:42 → ENPENDDIS 12:32 → MEDS 14:03
PROVIDERS: Emergency Medicine; ADMIT Internal Medicine
DX: I11.0 Hypertensive heart disease with heart failure (principal); I50.22 Chronic systolic (congestive) heart failure; R41.841 Cognitive communication deficit; R09.02 Hypoxemia; R62.59 Other lack of expected normal physiological development in childhood; E27.1 Primary adrenocortical insufficiency; G71.01 Duchenne or Becker muscular dystrophy; I42.0 Dilated cardiomyopathy; I48.0 Paroxysmal atrial fibrillation; M81.0 Age-related osteoporosis without current pathological fracture; E29.1 Testicular hypofunction; E04.2 Nontoxic multinodular goiter; G89.29 Other chronic pain; L89.529 Pressure ulcer of left ankle, unspecified stage; L03.116 Cellulitis of left lower limb; I25.2 Old myocardial infarction; K21.9 Gastro-esophageal reflux disease without esophagitis; Z66 Do not resuscitate; Z79.01 Long term (current) use of anticoagulants; Z79.02 Long term (current) use of antithrombotics/antiplatelets; Z79.84 Long term (current) use of oral hypoglycemic drugs; Z79.890 Hormone replacement therapy; Z79.899 Other long term (current) drug therapy; Z88.0 Allergy status to penicillin; Z88.1 Allergy status to other antibiotic agents
CPT/HCPCS: 36415; 71046; 80053; 83690; 84484; 85025; 93005; 93010; 94762; 96372; 96374; 96375; 99285-25; A9270; G0378; J1650; J1720; J3010